=== PATIENT | female | born 1935 | race Caucasian/White ===

== ENCOUNTER 2017-09-28 12:01 | Inpatient (IN) | payer MEDICARE ==
[2017-09-28 12:28] LABS: Hemoglobin 12.3 g/dL (12.0-16.0); Mean Corpuscular Hemoglobin 30.4 pg (27.0-31.0); Mean Platelet Volume 6.1 fL (7.4-10.4); Platelet Count 346 thou/uL (130-400); RBC Distribution Width 12.5 % (11.5-14.5); Red Blood Cell (RBC) Count 4.06 mill/uL (4.20-5.40); White Blood Cell (WBC) Count 20.2 thou/uL (4.8-10.8)
[2017-09-28] MEDS ORDERED: Ondansetron ODT 8 MG TAB ONE (12:49)
[2017-09-28 12:53] LABS: ALT (SGPT) 25 U/L (8-55); AST (SGOT) 22 U/L (5-34); Albumin 3.6 g/dL (3.4-4.8); Alkaline Phosphatase 131 U/L (40-150); Anion Gap 13 mmol/L (10-20); BUN (Urea Nitrogen) 10 mg/dL (9.8-20.1); Bilirubin, Total 0.8 mg/dL (0.2-1.2); CK (CPK) 23 U/L (29-168); Calc. Creatinine Clearance 0 mL/min (70-130); Calcium 8.8 mg/dL (7.8-10.44); Carbon Dioxide 20 mmol/L (23-31); Chloride 102 mmol/L (98-107); Estimated GFR-MDRD 62; Globulin 3.5 g/dL (2.4-3.5); Glucose 121 mg/dL (83-110); Potassium 3.4 mmol/L (3.5-5.1); Protein, Total 7.1 g/dL (6.0-8.3); Sodium 132 mmol/L (136-145)
--- NOTE | 2017-09-28 12:53 | RAD ---
PA CHEST: HISTORY: Cough. COMPARISON: Prior film from 2006. FINDINGS: When compared to the prior exam, there is a new density in the left lung base as well as new patchy d ensity in the right mid lung field. CP angles are blunted bilaterally suggesting small effusions. N o evidence of vascular congestion or edema. Heart size within normal range. IMPRESSION: Evidence of bilateral infiltrates and small bilateral effusions. Follow-up recommended. POS: CARRI
[2017-09-28 13:06] LABS: Band 15 % (5-11); Eosinophils 1 % (0-10); Lymphocytes 14 % (21-51); MDiff Complete? YES; Monocytes 6 % (0-10); Myelocyte 1 % (0-0); Neutrophil 62 % (42-75); Promyelocytes 1 % (0-0); RBC Morphology Normal
[2017-09-28] MEDS ORDERED: cefTRIAXone\\ROCEPHIN 2 GM, Admixture Fee 1 EACH in Sodium Chloride 0.9% 100 ML IVPB SCH (14:30)
[2017-09-28] MEDS ORDERED: Azithromycin 500 MG in Sodium Chloride 0.9% 250 ML 250 ML IVPB SCH (14:30)
[2017-09-28] MEDS ORDERED: Levofloxacin 500 mg/D5W 100 ml Premix Bag ONE (14:58)
[2017-09-28 15:10] LABS: Bilirubin Small (Negative); Blood, Urine Negative (Negative); Clarity CLOUDY (Clear); Glucose, Urine (Dipstick) Negative (Negative); Leukocyte Small (Negative); Nitrite Negative (Negative); Protein, Urine (Dipstick) 100 mg/dL (Neg-Trace); Specific Gravity, Urine 1.028 (1.002-1.036); pH, Urine 5.5 (5.0-9.0)
[2017-09-28 15:12] LABS: Bacteria/HPF None Seen HPF (None Seen)
[2017-09-28 15:15] LABS: Hyaline Casts/LPF 0-3 HYALINE CAST LPF (0-3 Hyaline); Renal Epithelial None Seen HPF (0-3); Transitional Epithelial NONE SEEN HPF (0-3)
[2017-09-28] MEDS ORDERED: Sodium Chloride 0.9% 1,000 ML IV SCH (18:45)
[2017-09-28] MEDS ORDERED: cloNIDine 0.1 MG TAB PO PRN (19:26)
[2017-09-28] MEDS ORDERED: Ondansetron HCl/PF 4 MG/2 ML Vial IVP PRN (19:26)
[2017-09-28] MEDS ORDERED: hydrALAZINE 20 MG/ML VIAL SLOW IVP PRN (19:26)
[2017-09-28] MEDS ORDERED: Ondansetron ODT 4 MG TAB PO PRN (19:26)
[2017-09-28] MEDS: Sodium Chloride 0.9% 1,000 ML IV SCH (20:30)
[2017-09-28] MEDS: cefTRIAXone\\ROCEPHIN 2 GM in Sodium Chloride 0.9% 100 ML IVPB SCH (20:30)
[2017-09-28] MEDS: Famotidine 20 MG TAB PO SCH (20:30)
[2017-09-28] MEDS: Diabetic Tussin 200 MG/10 ML UDCUP PO PRN (20:34)
[2017-09-28 22:00] VITALS: BMI 26.2
[2017-09-28] MEDS: Acetaminophen 500 MG TAB PO PRN (23:17)
[2017-09-29 00:07] LABS: Troponin I Less than 0.010 ng/mL (< 0.028)
--- NOTE | 2017-09-29 00:50 | HP ---
DATE OF ADMISSION: 09/28/2017 PRIMARY CARE PROVIDER: Nicolle dickinson. PRIMARY OBSTETRICS NURSE: Dr. Valero. CHIEF COMPLAINT: Shortness of breath and cough. HISTORY OF PRESENT ILLNESS: This is an 82-year-old female who presents to [facility] Emergency Department complaining of general weakness, persistent cough, congestion, weakness with low-grade fever. The patient states she has had the productive cough of green sputum for approximat gege 1 week, taking [id number] antitussive regimen. The patient also had noted persistent and p rogressive weakness with decreased appetite and p.o. intake. The patient felt that she had a bronchi tis that would spontaneously improve; however, continued to progress with shortness of breath and dec reased exercise tolerance. The patient denies any recent steroid exposure, smoking, secondhand smoke exposure, but does admit to history of chronic bronchitis with minimal use of home inhalers includin g Advair and albuterol. The patient states her influenza and pneumonia vaccinations are up-to-date a nd denies any known sick contacts. In the emergency room, the patient underwent general evaluation i ncluding chest imaging showing evidence of bilateral infiltrates with small effusions with associated white blood cell count elevation to 20,000 with 15% bands. The patient was initiated on Rocephin an d Zithromax for likely community-acquired pneumonia. 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 PAST MEDICAL HISTORY: 1. Chronic bronchitis with minimal use of home inhalers. 2. Hyperlipidemia. PAST SURGICAL HISTORY: Status post cholecystectomy. CURRENT MEDICATIONS: [id number]-ezyrjhl cough suppressant. ALLERGIES: Questionable CEFDINIR and SULFA. FAMILY HISTORY: No inheritable diseases per patient report. SOCIAL HISTORY: The patient lives independently in the [place] area. Formerly, a school based therapist. Cur rently active in the community with volunteer. Occasional alcohol use. No illicit drug use or tobac co. The patient is accompanied by her daughter in the hospital. REVIEW OF SYSTEMS: The following complete review of systems was negative, unless otherwise mentioned in the HPI or below: Constitutional: Weight loss or gain, ability to conduct usual activities. Skin: Rash, itching. Eyes: Double vision, pain. ENT/Mouth: Nose bleeding, neck stiffness, pain, tenderness. Cardiovascular: Palpitations, dyspnea on exertion, orthopnea. Respiratory: Shortness of breath, wheezing, cough, hemoptysis, fever or night sweats. Gastrointestinal: Poor appetite, abdominal pain, heartburn, nausea, vomiting, constipation, or diarr hea. Genitourinary: Urgency, frequency, dysuria, nocturia. Musculoskeletal: Pain, swelling. Neurologic/Psychiatric: Anxiety, depression. Allergy/Immunologic: Skin rash, bleeding tendency. Otherwise negative except as stated per HPI. PHYSICAL EXAMINATION: VITAL SIGNS: On admission, blood pressure 126/70, pulse 109, respiratory rate 18, temperature 99.1 d egrees Fahrenheit, O2 saturation 93% on room air. GENERAL APPEARANCE: This is an 82-year-old female, alert and oriented x3, pleasant, respon sive, in no acute distress. HEENT: Pupils are equal, round, and reactive to light and accommodation. Extraocular muscles are in tact. No scleral icterus. No conjunctival injection. Nares patent. OP is clear. Teeth in good re pair. NECK: Supple. No cervical adenopathy. No thyromegaly, no carotid bruits, no JVD appreciated. Cerv ical spine with full active range of motion. No meningeal signs appreciated. CHEST: Coarse breath sounds in the bases bilaterally. Upper lung field is clear. CARDIOVASCULAR: S1, S2 without noted murmur. ABDOMEN: Rounded, soft, nontender, nondistended. Bowel sounds are positive in all four quadrants. There is no hepatosplenomegaly, no abdominal bruits, no rebound or guarding appreciated. EXTREMITIES: Warm and dry with fair turgor. No clubbing, cyanosis, or asymmetric edema appreciated. Pulses are palpable distally at the dorsalis pedis, posterior tibial, and popliteal arteries bilate rally. Capillary refill is less than 2 seconds. NEUROLOGIC: Cranial nerves II-XII are grossly intact. No focal or lateralizing signs appreciated. PERTINENT LABORATORY AND X-RAY FINDINGS: Sodium 132, potassium 3.4, chloride 102, CO2 of 20, BUN 10, creatinine 0.88, estimated GFR 62, glucose 121. Lactic acid level is 1.3. LFT is within normal farmer its. Albumin 3.6, lipase 14. CBC showed a white blood cell count of 20.2, hemoglobin 12, hematocrit 37, platelet count 346 with 15% bands, 62% neutrophils. Urinalysis showed positive protein, small b ilirubin and leukocyte esterase with 7-10 wbc's per high powered field. Influenza A and B antigen da jensen 09/28/2017 negative. Portable chest x-ray dated 09/28/2017 showed bilateral infiltrates with small bilateral pleural effus ions. ASSESSMENT AND PLAN: 1. Bilateral community-acquired pneumonia. The patient will be admitted to the medical floor. Susp ect gram-positive cocci or Streptococcal species. We will continue Rocephin 2 grams IV q.24 hours wi th additional Zithromax 500 mg IV daily. Blood cultures x2 pending. Add DuoNeb q.4 hours. Continue general pulmonary supportive measures and oxygen on an as needed basis. 2. Hyponatremia. Suspect secondary to poor p.o. intake. We will continue intravenous normal saline at 100 mL per hour and repeat sodium level in the a.m. 3. Hypokalemia, mild. Encourage increased p.o. intake of regular diet and repeat potassium level in the a.m. 4. Leukocytosis with bandemia secondarily to bilateral community-acquired pneumonia. Continue treat ment as outlined in #1. Repeat CBC in the a.m. 5. Question of urinary tract infection. Await final urine culture results. Continue Rocephin as ou tlined in #1 for suspected pneumonia. 6. Prophylaxis. Sequential compression devices while in bed. Pepcid 20 mg p.o. b.i.d. 7. Code status is FULL. Surrogate medical decision maker is the patient's daughter.
[2017-09-29] MEDS: Benzonatate 100 MG CAP PO PRN ×2 (01:21→12:07)
[2017-09-29] MEDS: Sodium Chloride 0.9% 1,000 ML IV SCH ×3 (05:00→20:48)
[2017-09-29 06:05] LABS: Anion Gap 11 mmol/L (10-20); BUN (Urea Nitrogen) 10 mg/dL (9.8-20.1); Calc. Creatinine Clearance 58 mL/min (70-130); Calcium 7.9 mg/dL (7.8-10.44); Carbon Dioxide 22 mmol/L (23-31); Chloride 103 mmol/L (98-107); Estimated GFR-MDRD 69; Glucose 115 mg/dL (83-110); Potassium 3.5 mmol/L (3.5-5.1); Sodium 132 mmol/L (136-145)
[2017-09-29 06:08] LABS: Troponin I Less than 0.010 ng/mL (< 0.028)
[2017-09-29 06:46] LABS: Hemoglobin 10.1 g/dL (12.0-16.0); Mean Corpuscular HGB CONC 33.5 g/dL (32.0-36.0); Mean Corpuscular Hemoglobin 31.1 pg (27.0-31.0); Mean Corpuscular Volume 92.9 fl (81.0-99.0); Mean Platelet Volume 6.4 fL (7.4-10.4); Platelet Count 282 thou/uL (130-400); RBC Distribution Width 12.5 % (11.5-14.5); Red Blood Cell (RBC) Count 3.26 mill/uL (4.20-5.40); White Blood Cell (WBC) Count 15.6 thou/uL (4.8-10.8)
[2017-09-29 06:47] LABS: Band 26 % (5-11); Lymphocytes 7 % (21-51); MDiff Complete? YES; Monocytes 9 % (0-10); Neutrophil 56 % (42-75)
[2017-09-29] MEDS: Diabetic Tussin 200 MG/10 ML UDCUP PO PRN ×2 (07:56→19:04)
[2017-09-29] MEDS: Acetaminophen 500 MG TAB PO PRN (07:56)
[2017-09-29] MEDS: Famotidine 20 MG TAB PO SCH ×2 (07:56→20:47)
[2017-09-29] MEDS ORDERED: cefTRIAXone\\ROCEPHIN 2 GM in Sodium Chloride 0.9% 100 ML IVPB SCH (09:00)
[2017-09-29] MEDS: Azithromycin 500 MG in Sodium Chloride 0.9% 250 ML 250 ML IVPB SCH (09:57)
--- NOTE | 2017-09-29 11:56 | PDOC.PN ---
- Subjective Encounter Start Date: 09/29/17 Encounter Start Time: 11:35 Subjective: f/u for PNA tx with Rocephin and Zithromax. WBC down 20K to 15.6. -: Had a restless night with some coughing. Sleeping late this morning. - Objective Resuscitation Status: Resuscitation Status FULL:Full Resuscitation MAR Reviewed: Yes Vital Signs & Weight: Vital Signs (12 hours) Temp Pulse Resp BP Pulse Ox 09/29/17 10:15 80 16 09/29/17 08:00 97.8 F 88 18 109/63 95 09/29/17 06:16 86 16 98 09/29/17 04:00 98.1 F 73 18 110/65 97 09/29/17 03:08 98.1 F 93 18 110/66 93 L Weight Weight 148 lb I&O: 09/28/17 09/29/17 09/30/17 06:59 06:59 06:59 Intake Total 1500 Balance 1500 Result Diagrams: 09/29/17 05:19 09/29/17 05:19 Additional Labs: Microbiology 09/28/17 12:45 Nasal swab Influenza Types A,B Direct EIA - Final 09/28/17 14:52 Venous blood - Left Arm Blood Culture - Preliminary Specimen has been received and culture in progress. No Growth to date. 09/28/17 12:19 Venous blood - Left Arm Blood Culture - Preliminary Specimen has been received and culture in progress. No Growth to date. Laboratory Tests 09/28/17 09/28/17 09/28/17 12:21 12:21 23:34 WBC 20.2 H Hgb 12.3 Band Neuts % (Manual) 15 H Sodium 132 L Potassium 3.4 L Troponin I Less than 0.010 09/29/17 09/29/17 05:19 05:19 WBC Hgb Band Neuts % (Manual) 26 H Sodium Potassium Troponin I Less than 0.010 EKG Reviewed by me: Yes (Sinus tachycardia in low-100's ) Phys Exam - Physical Examination Constitutional: NAD HEENT: PERRLA, oral pharynx no lesions Neck: no JVD, supple coarse sounds in bases Respiratory: no wheezing Cardiovascular: RRR Gastrointestinal: soft, non-tender, no distention, positive bowel sounds Musculoskeletal: no edema, pulses present Neurological: normal sensation, moves all 4 limbs Psychiatric: A&O x 3 Skin: normal turgor, cap refill <2 seconds Dx/Plan (1) Pneumonia of both lower lobes Code(s): J18.9 - PNEUMONIA, UNSPECIFIED ORGANISM Status: Acute Comment: Suspected gm + cocci or strep spp, continue Rocephin and Zithromax, Duonebs, antitussives (2) Hyponatremia Code(s): E87.1 - HYPO-OSMOLALITY AND HYPONATREMIA Status: Acute Comment: Suspect due to poor po intake, serial monitoring (3) Hypokalemia Code(s): E87.6 - HYPOKALEMIA Status: Acute Comment: Improved, anticipate improvement with po intake of reg diet (4) Leukocytosis Code(s): D72.829 - ELEVATED WHITE BLOOD CELL COUNT, UNSPECIFIED Status: Acute Comment: Bandemia persists but overall WBC down, continue to monitor trend - Plan plan discussed w/ family, continue antibiotics, PT/OT, forensic social worker, respiratory therapy, out of bed/ambulate, DVT proph w/SCDs Stable overall -: Continue Rocephin and Zithromax -: Duonebs q4h -: Decrease IVF's 75ml/h -: AM lab: BMP, CBC * .
--- NOTE | 2017-09-29 14:17 | PQF ---
CLINICAL DOCUMENTATION IMPROVEMENT CLARIFICATION FORM: ICD-10 Updated PLEASE DO AN ADDENDUM TO THE PROGRESS NOTE WITH ANY DOCUMENTATION UPDATES OR ADDITIONS AND CARRY THROUGH TO DC SUMMARY. THANK YOU. DATE: 09/29/17 ATTN: DR. LINDQUIST Please exercise your independent, professional judgment in responding to the clarification form. Clinical indicators are provided on the bottom of this form for your review Please check appropriate box(es): [ x ] Sepsis due to: (Pna, UTI, gangrenous gall bladder, etc.) PNA Due to: [ ] Device (please specify) [ ] Implant [ ] Graft [ ] Infusion [ ] SIRS due to non-infectious process (please specify etiology) [ ] with organ dysfunction [ ] without organ dysfunction [ ] Severe sepsis with acute organ dysfunction of: (Examples: respiratory failure, encephalopathy, acute kidney failure, other) [ ] Septic Shock [ ] Localized infection without sepsis [ ] Other diagnosis [ ] Unable to determine In addition, please specify: Present on Admission (POA): [ x ] Yes [ ] No [ ] Unable to determine For continuity of documentation, please document condition throughout progress notes and discharge summary. Thank You. CLINICAL INDICATORS - SIGNS / SYMPTOMS / LABS ER NOTE: "SEPSIS" WBC 20.2 BANDS 26 PULSE 109 RISKS: PNEUMONIA TREATMENT: IV LEVAQUIN (ER) IV AZITHROMYCIN (ER-PRESENT) IV ROCEPHIN (3/5-PRESENT) IV FLUIDS BLOOD CULTURES [employer] Win[employer] (This form is maintained as a part of the permanent medical record) 2014 [employer]. All Rights Reserved [email or web address] [email or web address] Office: [phone] [facility]
[2017-09-29] MEDS: cefTRIAXone\\ROCEPHIN 2 GM in Sodium Chloride 0.9% 100 ML IVPB SCH (20:47)
[2017-09-30 05:50] LABS: Anion Gap 8 mmol/L (10-20); BUN (Urea Nitrogen) 5 mg/dL (9.8-20.1); Calc. Creatinine Clearance 66 mL/min (70-130); Carbon Dioxide 23 mmol/L (23-31); Chloride 108 mmol/L (98-107); Estimated GFR-MDRD 79; Glucose 115 mg/dL (83-110); Potassium 3.2 mmol/L (3.5-5.1); Sodium 136 mmol/L (136-145)
[2017-09-30 05:54] LABS: Band 2 % (5-11); Eosinophils 1 % (0-10); Hemoglobin 9.6 g/dL (12.0-16.0); Lymphocytes 9 % (21-51); MDiff Complete? YES; Mean Corpuscular HGB CONC 33.7 g/dL (32.0-36.0); Mean Corpuscular Hemoglobin 30.7 pg (27.0-31.0); Mean Corpuscular Volume 91.2 fl (81.0-99.0); Mean Platelet Volume 6.2 fL (7.4-10.4); Monocytes 14 % (0-10); Neutrophil 74 % (42-75); Platelet Count 296 thou/uL (130-400); RBC Distribution Width 12.6 % (11.5-14.5); Red Blood Cell (RBC) Count 3.11 mill/uL (4.20-5.40); White Blood Cell (WBC) Count 11.4 thou/uL (4.8-10.8)
[2017-09-30] MEDS: Azithromycin 500 MG in Sodium Chloride 0.9% 250 ML 250 ML IVPB SCH (08:37)
[2017-09-30] MEDS: Famotidine 20 MG TAB PO SCH ×2 (08:38→20:45)
[2017-09-30] MEDS: Benzonatate 100 MG CAP PO PRN (08:41)
[2017-09-30] MEDS: Sodium Chloride 0.9% 1,000 ML IV SCH (08:50)
--- NOTE | 2017-09-30 12:51 | PDOC.PN ---
- Subjective Encounter Start Date: 09/30/17 Encounter Start Time: 12:30 Subjective: f/u bilat PNA tx with Rocephin and Zithromax overall improved. No -: documented fever or chills. Some vertigo when walking. - Objective Resuscitation Status: Resuscitation Status FULL:Full Resuscitation MAR Reviewed: Yes Vital Signs & Weight: Vital Signs (12 hours) Temp Pulse Resp BP Pulse Ox 09/30/17 10:57 102 H 20 94 L 09/30/17 08:08 97.6 F 85 16 121/68 93 L 09/30/17 08:00 97.6 F 85 16 94 L 09/30/17 07:56 85 16 93 L Weight Weight 148 lb I&O: 09/29/17 09/30/17 10/01/17 06:59 06:59 06:59 Intake Total 1500 1125 Balance 1500 1125 Result Diagrams: 09/30/17 04:47 09/30/17 04:47 Additional Labs: Microbiology 09/28/17 12:45 Nasal swab Influenza Types A,B Direct EIA - Final 09/28/17 14:52 Venous blood - Left Arm Blood Culture - Preliminary Specimen has been received and culture in progress. No Growth to date. 09/28/17 12:19 Venous blood - Left Arm Blood Culture - Preliminary Specimen has been received and culture in progress. No Growth to date. Laboratory Tests 09/28/17 09/28/17 09/28/17 12:21 12:21 23:34 WBC 20.2 H Hgb 12.3 Band Neuts % (Manual) 15 H Sodium 132 L Potassium 3.4 L Troponin I Less than 0.010 09/29/17 09/29/17 05:19 05:19 WBC Hgb Band Neuts % (Manual) 26 H Sodium Potassium Troponin I Less than 0.010 Phys Exam - Physical Examination Constitutional: NAD HEENT: PERRLA, oral pharynx no lesions Neck: no JVD, supple basilar coarse sounds bilat Cardiovascular: RRR Gastrointestinal: soft, non-tender, no distention, positive bowel sounds Musculoskeletal: no edema, pulses present Neurological: normal sensation, moves all 4 limbs Psychiatric: A&O x 3 Skin: normal turgor, cap refill <2 seconds Dx/Plan (1) Sepsis Code(s): A41.9 - SEPSIS, UNSPECIFIED ORGANISM Status: Acute Comment: Due to PNA, overall resolving (2) Pneumonia of both lower lobes Code(s): J18.9 - PNEUMONIA, UNSPECIFIED ORGANISM Status: Acute Comment: Suspected gm + cocci or strep spp, continue Rocephin and Zithromax, Duonebs, antitussives, continue IV Rocephin and Zithromax another 24h then transition po for home (3) Hyponatremia Code(s): E87.1 - HYPO-OSMOLALITY AND HYPONATREMIA Status: Acute Comment: Suspect due to poor po intake, serial monitoring, resolved (4) Hypokalemia Code(s): E87.6 - HYPOKALEMIA Status: Acute Comment: Improved, anticipate improvement with po intake of reg diet, KCL 40meq BID, repeat BMP in am (5) Leukocytosis Code(s): D72.829 - ELEVATED WHITE BLOOD CELL COUNT, UNSPECIFIED Status: Acute Comment: Bandemia persists but overall WBC down, continue to monitor trend, improved - Plan plan discussed w/ family, continue antibiotics, out of bed/ambulate, DVT proph w /SCDs Stable overall -: Continue Rocephin and Zithromax IV another 24h then d/c -: KCL 40meq BID -: Saline lock IVF -: AM lab: BMP, CBC * Likely home in am
[2017-09-30] MEDS ORDERED: Potassium Chloride 20 MEQ TAB PO SCH ×2 (13:00→17:00)
[2017-09-30] MEDS: cefTRIAXone\\ROCEPHIN 2 GM in Sodium Chloride 0.9% 100 ML IVPB SCH (20:45)
[2017-10-01 04:40] LABS: Band 9 % (5-11); Eosinophils 3 % (0-10); Hemoglobin 9.6 g/dL (12.0-16.0); Lymphocytes 13 % (21-51); MDiff Complete? YES; Mean Corpuscular HGB CONC 33.2 g/dL (32.0-36.0); Mean Corpuscular Hemoglobin 31.1 pg (27.0-31.0); Mean Corpuscular Volume 93.6 fl (81.0-99.0); Mean Platelet Volume 6.3 fL (7.4-10.4); Monocytes 10 % (0-10); Myelocyte 1 % (0-0); Neutrophil 64 % (42-75); PLT Morphology Comment Appears Adequate; Platelet Count 359 thou/uL (130-400); RBC Distribution Width 12.7 % (11.5-14.5); Red Blood Cell (RBC) Count 3.08 mill/uL (4.20-5.40); White Blood Cell (WBC) Count 9.3 thou/uL (4.8-10.8)
[2017-10-01 04:42] LABS: Anion Gap 10 mmol/L (10-20); BUN (Urea Nitrogen) 5 mg/dL (9.8-20.1); Calc. Creatinine Clearance 69 mL/min (70-130); Calcium 8.2 mg/dL (7.8-10.44); Carbon Dioxide 22 mmol/L (23-31); Chloride 109 mmol/L (98-107); Estimated GFR-MDRD 83; Glucose 110 mg/dL (83-110); Potassium 3.7 mmol/L (3.5-5.1); Sodium 137 mmol/L (136-145)
[2017-10-01] MEDS: Famotidine 20 MG TAB PO SCH ×2 (08:12→22:45)
[2017-10-01] MEDS: Azithromycin 500 MG in Sodium Chloride 0.9% 250 ML 250 ML IVPB SCH (08:13)
[2017-10-01] MEDS: Fluorometholone 0.1% Ophth Soln 5 ml Bottle EA EYE SCH (08:14)
--- NOTE | 2017-10-01 11:04 | PDOC.PN ---
- Subjective Encounter Start Date: 10/01/17 Encounter Start Time: 10:15 Subjective: breathing better, no sob - Objective Resuscitation Status: Resuscitation Status FULL:Full Resuscitation MAR Reviewed: Yes Vital Signs & Weight: Vital Signs (12 hours) Temp Pulse Resp BP Pulse Ox 10/01/17 08:00 98.2 F 106 H 16 154/74 H 94 L 10/01/17 07:15 100 16 Weight Weight 148 lb I&O: 09/30/17 10/01/17 10/02/17 06:59 06:59 06:59 Intake Total 1125 400 180 Balance 1125 400 180 Result Diagrams: 10/01/17 03:43 10/01/17 03:43 Phys Exam - Physical Examination HEENT: PERRLA, moist MMs Neck: no JVD, supple Respiratory: no wheezing, no rales Cardiovascular: RRR, no significant murmur Gastrointestinal: soft, non-tender, positive bowel sounds Musculoskeletal: pulses present Neurological: non-focal, moves all 4 limbs Dx/Plan (1) Pneumonia of both lower lobes Code(s): J18.9 - PNEUMONIA, UNSPECIFIED ORGANISM Status: Acute Comment: Suspected gm + cocci or strep spp, continue Rocephin and Zithromax (2) Sepsis Code(s): A41.9 - SEPSIS, UNSPECIFIED ORGANISM Status: Acute Qualifiers: Sepsis type: sepsis due to unspecified organism Qualified Code(s): A41.9 - Sepsis, unspecified organism Comment: Due to PNA, overall resolving (3) Chronic anemia Code(s): D64.9 - ANEMIA, UNSPECIFIED Status: Chronic - Plan on ceftriaxone and zithromax -: nebs, mobilize as tolerated -: dc plan in am -: encourage po intake * . Review of Systems - Medications/Allergies Allergies/Adverse Reactions: Allergies Allergy/AdvReac Type Severity Reaction Status Date / Time cefdinir Allergy Verified 09/28/17 21:50 Sulfa (Sulfonamide Allergy Verified 09/28/17 21:51 Antibiotics) Medications: Current Medications Acetaminophen (Tylenol) 1,000 mg PO Q6H PRN PRN Reason: Headache/Fever or Mild Pain Last Admin: 09/29/17 07:56 Dose: 1,000 mg Albuterol/Ipratropium (Duoneb) 3 ml NEB [id number] [facility] Last Admin: 10/01/17 07:15 Dose: 3 ml Benzonatate (Tessalon) 200 mg PO Q6H PRN PRN Reason: Cough Last Admin: 09/30/17 08:41 Dose: 200 mg Clonidine (Catapres) 0.1 mg PO Q4H PRN PRN Reason: Systolic BP > 180 Famotidine (Pepcid) 20 mg PO BID [facility] Last Admin: 10/01/17 08:12 Dose: 20 mg Fluorometholone (Flarex 0.1% Ophth Soln) 1 drop EA EYE DAILY [facility] Last Admin: 10/01/17 08:14 Dose: Not Given Guaifenesin (Robitussin Sf) 200 mg PO Q4H PRN PRN Reason: Cough Last Admin: 09/29/17 19:04 Dose: 200 mg Hydralazine HCl (Apresoline) 10 mg SLOW IVP Q4H PRN PRN Reason: Systolic BP > 180 Azithromycin 500 mg/ Sodium (Chloride) 250 mls @ 250 mls/hr IVPB Q24HR [facility] Last Admin: 10/01/17 08:13 Dose: 250 mls Ceftriaxone Sodium 2 gm/ (Sodium Chloride) 100 mls @ 200 mls/hr IVPB 2100 [facility] Last Admin: 09/30/17 20:45 Dose: 100 mls Ondansetron HCl (Zofran Odt) 4 mg PO Q6H PRN PRN Reason: Nausea/Vomiting Ondansetron HCl (Zofran) 4 mg IVP Q6H PRN PRN Reason: Nausea/Vomiting Potassium Chloride (Klor-Con) 20 meq PO BID-[facility] Last Admin: 10/01/17 08:12 Dose: 20 meq
--- NOTE | 2017-10-01 17:32 | EKG ---
Test Reason : Blood Pressure : / mmHG Vent. Rate : 106 BPM Atrial Rate : 106 BPM P-R Int : 130 ms QRS Dur : 082 ms QT Int : 334 ms P-R-T Axes : 068 -43 053 degrees QTc Int : 443 ms Sinus tachycardia Left axis deviation Abnormal ECG When compared with ECG of 23-NOV-2003 12:11, QRS axis Shifted left Confirmed by DR. Izzy CALERO ([id number]) on 10/01/2017 5:32:11 PM Referred By: Confirmed By:DR. Izzy CALERO
[2017-10-01] MEDS: cefTRIAXone\\ROCEPHIN 2 GM in Sodium Chloride 0.9% 100 ML IVPB SCH (22:44)
[2017-10-02] MEDS: Azithromycin 500 MG in Sodium Chloride 0.9% 250 ML 250 ML IVPB SCH (09:21)
[2017-10-02] MEDS: Famotidine 20 MG TAB PO SCH ×2 (09:21→20:22)
[2017-10-02 09:22] LABS: #Basophils 0.1 thou/uL (0.0-0.2); #Eosinphils 0.5 thou/uL (0.0-0.7); #Lymphocytes 0.8 thou/uL (1.20-3.40); #Monocytes 1.2 thou/uL (0.11-0.59); #Neutrophils 5.8 thou/uL (1.40-6.50); %Basophils 0.7 % (0.0-1.0); %Eosinophils 5.7 % (0.0-10.0); %Lymphocytes 9.9 % (21.0-51.0); %Monocytes 13.8 % (0.0-10.0); %Neutrophils 69.8 % (42.0-75.0); Mean Corpuscular HGB CONC 33.5 g/dL (32.0-36.0); Mean Corpuscular Hemoglobin 30.8 pg (27.0-31.0); Mean Corpuscular Volume 91.9 fl (81.0-99.0); Mean Platelet Volume 5.5 fL (7.4-10.4); Platelet Count 462 thou/uL (130-400); RBC Distribution Width 12.9 % (11.5-14.5); Red Blood Cell (RBC) Count 3.59 mill/uL (4.20-5.40); White Blood Cell (WBC) Count 8.3 thou/uL (4.8-10.8)
[2017-10-02] MEDS: Fluorometholone 0.1% Ophth Soln 5 ml Bottle EA EYE SCH (09:33)
[2017-10-02 09:49] LABS: Anion Gap 14 mmol/L (10-20); BUN (Urea Nitrogen) 4 mg/dL (9.8-20.1); Calc. Creatinine Clearance 64 mL/min (70-130); Calcium 8.8 mg/dL (7.8-10.44); Carbon Dioxide 23 mmol/L (23-31); Chloride 106 mmol/L (98-107); Estimated GFR-MDRD 77; Glucose 98 mg/dL (83-110); Potassium 3.7 mmol/L (3.5-5.1); Sodium 139 mmol/L (136-145)
--- NOTE | 2017-10-02 09:53 | RAD ---
CHEST 1 VIEW: HISTORY Followup prior exam. COMPARISON: 09/28/17. FINDINGS: Persistent and essentially stable lung parenchymal opacities and bilateral pleural effusions. Stable configuration of the cardiac silhouette. No pneumothorax. IMPRESSION: No significant interval change. POS: SERA
--- NOTE | 2017-10-02 13:56 | PDOC.PN ---
- Subjective Encounter Start Date: 10/02/17 Encounter Start Time: 11:45 Subjective: feels better, is amb in hallway - Objective Resuscitation Status: Resuscitation Status FULL:Full Resuscitation MAR Reviewed: Yes Vital Signs & Weight: Vital Signs (12 hours) Temp Pulse Resp BP Pulse Ox 10/02/17 09:35 91 16 95 10/02/17 08:00 98.3 F 91 16 97 10/02/17 07:44 98.2 F 95 18 164/89 H 92 L 10/02/17 06:06 119 H 16 94 L Weight Weight 148 lb I&O: 10/01/17 10/02/17 10/03/17 06:59 06:59 06:59 Intake Total 400 1240 480 Balance 400 1240 480 Result Diagrams: 10/02/17 08:50 10/02/17 08:50 Phys Exam - Physical Examination HEENT: PERRLA, moist MMs Neck: no JVD, supple Respiratory: no wheezing, no rales Cardiovascular: RRR, no significant murmur Gastrointestinal: soft, non-tender, positive bowel sounds Musculoskeletal: no edema, pulses present Neurological: non-focal, moves all 4 limbs Psychiatric: normal affect, A&O x 3 Dx/Plan (1) Pneumonia of both lower lobes Code(s): J18.9 - PNEUMONIA, UNSPECIFIED ORGANISM Status: Acute Comment: Suspected gm + cocci or strep spp, continue Rocephin and Zithromax (2) Sepsis Code(s): A41.9 - SEPSIS, UNSPECIFIED ORGANISM Status: Acute Qualifiers: Sepsis type: sepsis due to unspecified organism Qualified Code(s): A41.9 - Sepsis, unspecified organism Comment: Due to PNA, overall resolving (3) Chronic anemia Code(s): D64.9 - ANEMIA, UNSPECIFIED Status: Chronic - Plan will switch to oral levaquin in am -: hemostable -: repeat cxray shows clearing of pna -: is ambulating in hallway -: nebs prn * . Review of Systems - Medications/Allergies Allergies/Adverse Reactions: Allergies Allergy/AdvReac Type Severity Reaction Status Date / Time cefdinir Allergy Verified 09/28/17 21:50 Sulfa (Sulfonamide Allergy Verified 09/28/17 21:51 Antibiotics) Medications: Current Medications Acetaminophen (Tylenol) 1,000 mg PO Q6H PRN PRN Reason: Headache/Fever or Mild Pain Last Admin: 09/29/17 07:56 Dose: 1,000 mg Albuterol/Ipratropium (Duoneb) 3 ml NEB [id number] Last Admin: 10/02/17 09:35 Dose: 3 ml Benzonatate (Tessalon) 200 mg PO Q6H PRN PRN Reason: Cough Last Admin: 09/30/17 08:41 Dose: 200 mg Clonidine (Catapres) 0.1 mg PO Q4H PRN PRN Reason: Systolic BP > 180 Famotidine (Pepcid) 20 mg PO BID [facility] Last Admin: 10/02/17 09:21 Dose: 20 mg Fluorometholone (Flarex 0.1% Oph Soln) 1 drop EA EYE DAILY [facility] Last Admin: 10/02/17 09:33 Dose: Not Given Guaifenesin (Robitussin Sf) 200 mg PO Q4H PRN PRN Reason: Cough Last Admin: 09/29/17 19:04 Dose: 200 mg Hydralazine HCl (Apresoline) 10 mg SLOW IVP Q4H PRN PRN Reason: Systolic BP > 180 Azithromycin 500 mg/ Sodium (Chloride) 250 mls @ 250 mls/hr IVPB Q24HR [facility] Last Admin: 10/02/17 09:21 Dose: 250 mls Ceftriaxone Sodium 2 gm/ (Sodium Chloride) 100 mls @ 200 mls/hr IVPB 2100 [facility] Last Admin: 10/01/17 22:44 Dose: 100 mls Ondansetron HCl (Zofran Odt) 4 mg PO Q6H PRN PRN Reason: Nausea/Vomiting Ondansetron HCl (Zofran) 4 mg IVP Q6H PRN PRN Reason: Nausea/Vomiting Potassium Chloride (Klor-Con) 20 meq PO BID-[facility] Last Admin: 10/02/17 09:21 Dose: 20 meq
[2017-10-03] MEDS: Acetaminophen 500 MG TAB PO PRN (05:06)
[2017-10-03] MEDS: Famotidine 20 MG TAB PO SCH (07:36)
[2017-10-03] MEDS: Fluorometholone 0.1% Ophth Soln 5 ml Bottle EA EYE SCH (07:37)
[2017-10-03 08:10] VITALS: BP 149/78; TEMP 97.9
--- NOTE | 2017-10-03 11:25 | PDOC.PN ---
- Subjective Encounter Start Date: 10/03/17 Encounter Start Time: 09:00 Subjective: feels better, is amb and eating better - Objective Resuscitation Status: Resuscitation Status FULL:Full Resuscitation MAR Reviewed: Yes Vital Signs & Weight: Vital Signs (12 hours) Temp Pulse Resp BP Pulse Ox 10/03/17 09:27 107 H 16 93 L 10/03/17 08:09 97.9 F 107 H 18 149/78 H 93 L 10/03/17 08:00 97.9 F 107 H 18 97 10/03/17 05:48 88 16 94 L 10/03/17 04:22 98.5 F 87 16 154/83 H 94 L Weight Weight 148 lb I&O: 10/02/17 10/03/17 10/04/17 06:59 06:59 07:59 Intake Total 1240 1795 240 Balance 1240 1795 240 Result Diagrams: 10/02/17 08:50 10/02/17 08:50 Phys Exam - Physical Examination HEENT: PERRLA, moist MMs Neck: no JVD, supple Respiratory: no wheezing, no rales Cardiovascular: RRR, no significant murmur Gastrointestinal: soft, non-tender, positive bowel sounds Musculoskeletal: no edema, pulses present Neurological: non-focal, moves all 4 limbs Psychiatric: A&O x 3 Dx/Plan (1) Pneumonia of both lower lobes Code(s): J18.9 - PNEUMONIA, UNSPECIFIED ORGANISM Status: Acute Comment: Suspected gm + cocci or strep spp (2) Sepsis Code(s): A41.9 - SEPSIS, UNSPECIFIED ORGANISM Status: Resolved Qualifiers: Sepsis type: sepsis due to unspecified organism Qualified Code(s): A41.9 - Sepsis, unspecified organism Comment: Due to PNA, overall resolving (3) Chronic anemia Code(s): D64.9 - ANEMIA, UNSPECIFIED Status: Chronic - Plan hemostable -: dc pt home -: d/w patient and daughter * .
--- NOTE | 2017-10-03 18:20 | DIS ---
DATE OF ADMISSION: 09/28/2017 DATE OF DISCHARGE: 10/03/2017 DISCHARGE DISPOSITION: Home. PRIMARY DISCHARGE DIAGNOSES: Pneumonia, sepsis, chronic anemia. PROCEDURES DONE DURING HOSPITALIZATION: The patient has had chest x-ray done on the day of admission , which showed early bilateral infiltrates. Blood cultures x2, no growth. Influenza A and B antigen s were negative. Had a white count of 20, with 62% neutrophils and 15% bands on admission. Discharg e white count of 8, H&H was 11 and 33 on the day of discharge. DISCHARGE MEDICATIONS: Albuterol inhaler q.6 hourly p.r.n., Pepcid 20 mg twice daily, Levaquin 500 m g p.o. daily for another 4 days. ALLERGIES: Allergic to CEFDINIR and SULFA. DISCHARGE PLAN: Patient needs to find a primary care physician and follow up within a week. BRIEF COURSE DURING HOSPITALIZATION: Patient initially got admitted with complaints of shortness of breath and cough. Her chest x-ray was consistent with early pneumonia. Patient was septic as well w ith a white count of 20 and 15% bands. She was placed on broad spectrum antibiotics for likely commu nity-acquired pneumonia. She was also on nebulizers. The patient has responded well to above measur es. A repeat x-ray done on the is showing clearing up of pneumonia. Her white count is almost n ormal this morning. She is ambulating and her eating is also getting better at present. She is hemo dynamically stable and will be shortly discharged home. She is strongly counseled to find a primary care physician and follow up within 1 week. Please see a [id number] documentation on [facility] for the day of discharge.
== END 2017-10-03 10:55 | disposition home or self-care (01) | DRG 871 ==
LOC: ERS 12:01 → T4-B 14:44
PROVIDERS: ADMIT Family Medicine; ATTEND Family Medicine
DX: A41.9 Sepsis, unspecified organism (principal); J18.9 Pneumonia, unspecified organism; E87.1 Hypo-osmolality and hyponatremia; E87.6 Hypokalemia; E78.5 Hyperlipidemia, unspecified; D64.9 Anemia, unspecified; J42 Unspecified chronic bronchitis; Z88.2 Allergy status to sulfonamides; Z88.1 Allergy status to other antibiotic agents
CPT/HCPCS: 36415; 71045; 80048; 80053; 81003; 81015; 82550; 83605; 83690; 83880; 84484; 85007; 85025; 85027; 87040; 87804; 93005; 93010; 94640; 96365; 96366; 96367; G8978-GP-CI; G8979-GP-CI; G8980-GP-CI; J0456; J0696; J1956; J7050; J7620

== ENCOUNTER 2017-10-28 10:31 | Outpatient (CLI) | payer MEDICARE | END 2017-10-28 10:32 | disposition home or self-care (01) | LOC: BICRAD 10:31 | PROVIDERS: ATTEND Internal Medicine Sleep Medicine | DX: J47.9 Bronchiectasis, uncomplicated (principal); J90 Pleural effusion, not elsewhere classified | CPT/HCPCS: 71046 ==

== ENCOUNTER 2018-08-17 16:25 | Outpatient (CLI) | payer MEDICARE ==
--- NOTE | 2018-08-17 17:23 | RAD ---
PA AND LATERAL VIEWS OF THE CHEST: 08/17/18 HISTORY: COPD. FINDINGS: Comparison is made with 10/02/17 and 01/18/14. The heart size is normal. Blunting of the right lateral costophrenic angle is again seen. Chronic kashif nges are seen in the lung mckeon. No focal areas of consolidation, pneumothoraces or large pleural ef fusions are seen. There are mild degenerative changes in the spine. IMPRESSION: No acute process. POS: [facility]
== END 2018-08-17 16:26 | disposition home or self-care (01) ==
LOC: BICRAD 16:25
PROVIDERS: ATTEND Family Medicine
DX: J44.9 Chronic obstructive pulmonary disease, unspecified (principal)
CPT/HCPCS: 71046

== ENCOUNTER 2018-09-06 10:54 | Emergency (ER) | payer MEDICARE ==
--- NOTE | 2018-09-06 12:16 | RAD ---
CHEST TWO VIEWS: HISTORY: Cough. COMPARISON: Radiograph from 08/17/2018. FINDINGS: Some chronic scarring in the right lateral lung base. The right lower lobe opacity is unchanged and contains scar. No pneumothorax. IMPRESSION: Chronic findings. No acute intrathoracic abnormality. POS: [facility]
[2018-09-06 12:17] LABS: #Basophils 0.1 thou/uL (0.0-0.2); #Eosinphils 1.1 thou/uL (0.0-0.7); #Monocytes 1.3 thou/uL (0.11-0.59); #Neutrophils 5.7 thou/uL (1.40-6.50); %Basophils 0.8 % (0.0-1.0); %Eosinophils 12.3 % (0.0-10.0); %Lymphocytes 10.4 % (21.0-51.0); %Monocytes 14.1 % (0.0-10.0); %Neutrophils 62.4 % (42.0-75.0); Hemoglobin 12.6 g/dL (12.0-16.0); Mean Corpuscular Hemoglobin 29.7 pg (27.0-31.0); Mean Corpuscular Volume 90.2 fL (78.0-98.0); Mean Platelet Volume 6.5 fL (7.4-10.4); Platelet Count 372 thou/uL (130-400); RBC Distribution Width 11.6 % (11.5-14.5); Red Blood Cell (RBC) Count 4.24 mill/uL (4.20-5.40); White Blood Cell (WBC) Count 9.1 thou/uL (4.8-10.8)
[2018-09-06 12:56] LABS: ALT (SGPT) Less than 7 U/L (8-55); AST (SGOT) 14 U/L (5-34); Albumin 3.9 g/dL (3.4-4.8); Alkaline Phosphatase 85 U/L (40-150); Anion Gap 14 mmol/L (10-20); BUN (Urea Nitrogen) 12 mg/dL (9.8-20.1); Bilirubin, Total 0.4 mg/dL (0.2-1.2); Calc. Creatinine Clearance 0 mL/min (70-130); Calcium 8.9 mg/dL (7.8-10.44); Carbon Dioxide 21 mmol/L (23-31); Chloride 105 mmol/L (98-107); Estimated GFR-MDRD 60; Globulin 3.3 g/dL (2.4-3.5); Glucose 94 mg/dL (83-110); Potassium 3.8 mmol/L (3.5-5.1); Protein, Total 7.2 g/dL (6.0-8.3); Sodium 136 mmol/L (136-145)
[2018-09-06] MEDS ORDERED: predniSONE 20 MG TAB ONE (16:08)
[2018-09-06] MEDS ORDERED: Acetaminophen 500 MG TAB ONE (16:08)
[2018-09-06] MEDS ORDERED: Doxycycline 100 MG CAP PO SCH (16:15)
== END 2018-09-06 17:35 | disposition home or self-care (01) ==
LOC: ERS 10:54
DX: J10.1 Influenza due to other identified influenza virus with other respiratory manifestations (principal)
CPT/HCPCS: 36415; 71046; 80053; 85025; 87804; 93005; 94640

== ENCOUNTER 2019-02-10 09:14 | Outpatient (CLI) | payer MEDICARE ==
--- NOTE | 2019-02-10 09:34 | RAD ---
XR Chest Pa Lat STANDARD HISTORY: Community-acquired pneumonia, cough, chest pain, fever COMPARISON: 09/06/2018 FINDINGS: The heart size normal. The lungs are expanded with the stable chronic changes. Mild infiltr ate is noted in the left lower lung. No pneumothoraces or pleural effusions are seen. IMPRESSION: Probable left basilar pneumonia.
== END 2019-02-10 09:15 | disposition home or self-care (01) ==
LOC: BICRAD 09:14
PROVIDERS: ATTEND Family Medicine
DX: J18.9 Pneumonia, unspecified organism (principal)
CPT/HCPCS: 71046

== ENCOUNTER 2020-02-28 12:42 | Observation (INO) | payer MEDICARE ==
[~2020-02-28 12:42] MED LIST: Iopamidol-370 76% 500 ML 1 ML ONE
[2020-02-28 14:01] LABS: #Basophils 0.1 thou/uL (0.0-0.2); #Eosinphils 0.4 thou/uL (0.0-0.7); #Lymphocytes 1.2 thou/uL (1.20-3.40); #Monocytes 1.1 thou/uL (0.11-0.59); #Neutrophils 7.8 thou/uL (1.40-6.50); %Basophils 0.7 % (0.0-1.0); %Eosinophils 3.6 % (0.0-10.0); %Lymphocytes 11.5 % (21.0-51.0); %Monocytes 10.1 % (0.0-10.0); %Neutrophils 74.2 % (42.0-75.0); Hemoglobin 12.5 g/dL (12.0-16.0); Mean Corpuscular HGB CONC 32.9 g/dL (32.0-36.0); Mean Corpuscular Volume 91.3 fL (78.0-98.0); Mean Platelet Volume 6.6 fL (7.4-10.4); Platelet Count 368 thou/uL (130-400); RBC Distribution Width 12.4 % (11.5-14.5); Red Blood Cell (RBC) Count 4.16 mill/uL (4.20-5.40); White Blood Cell (WBC) Count 10.5 thou/uL (4.8-10.8)
[2020-02-28 14:06] LABS: ALT (SGPT) 9 U/L (8-55); AST (SGOT) 13 U/L (5-34); Albumin 3.5 g/dL (3.4-4.8); Alkaline Phosphatase 78 U/L (40-110); Anion Gap 11 mmol/L (10-20); BUN (Urea Nitrogen) 23 mg/dL (9.8-20.1); Bilirubin, Total 0.5 mg/dL (0.2-1.2); Calc. Creatinine Clearance 0 mL/min (70-130); Calcium 8.1 mg/dL (7.8-10.44); Carbon Dioxide 24 mmol/L (23-31); Chloride 105 mmol/L (98-107); Estimated GFR-MDRD 46; Globulin 3.1 g/dL (2.4-3.5); Glucose 93 mg/dL (83-110); Lipase 30 U/L (8-78); Potassium 3.7 mmol/L (3.5-5.1); Protein, Total 6.6 g/dL (6.0-8.3); Sodium 136 mmol/L (136-145)
[2020-02-28] MEDS ORDERED: Ondansetron PF 4 MG/2 ML Vial ONE (14:34)
[2020-02-28] MEDS ORDERED: Dicyclomine 20 MG TAB ONE (14:34)
--- NOTE | 2020-02-28 15:58 | CT ---
CT abdomen and pelvis with IV contrast. Oral contrast was not administered. INDICATIONS: Weakness. Diarrhea. Abdominal pain. COMPARISON: None FINDINGS: There are hazy groundglass opacities seen in the periphery of both lung bases. These are nonspecific but could represent viral pneumonia. Recommend clinical correlation. Liver, spleen, and pancreas appear unremarkable. Stomach and duodenum appear unremarkable. Adrenal glands appear normal. Kidneys appear unremarkable. Collecting structures and urinary bladder appear unremarkable. Small bowel loops are normal caliber and exhibit normal fold pattern. Appendix is identified and appears unremarkable. Colon is mildly distended with air-fluid levels. There is mural thickening and luminal narrowing at the rectosigmoid junction. There are surrounding i nflammation. Focal proctitis or colitis should be excluded. Recommend direct evaluation. Aorta is calcified. No aneurysm. No evidence of retroperitoneal or mesenteric adenopathy. Uterus and adnexa unremarkable. Urinary bladder is mildly distended. Subcutaneous tissues, abdominal wall, and muscular structures appear unremarkable. Osseous structures appear unremarkable. IMPRESSION: 1. Hazy groundglass opacities/infiltrates in the periphery of both lung bases. Recommend clinical cor relation regarding pneumonia. 2. Colon shows mild distention with air-fluid levels. Mural thickening and surrounding inflammation a t the rectosigmoid junction. Recommend direct evaluation. 3. Urinary bladder distention.
[2020-02-28 16:33] LABS: Bilirubin Negative (Negative); Blood, Urine Negative (Negative); Clarity Clear (Clear); Glucose, Urine (Dipstick) Normal (Negative); Ketone, Urine Negative (Negative); Leukocyte Negative Leu/uL (Negative); Nitrite Negative (Negative); Protein, Urine (Dipstick) 10 mg/dL (Neg-Trace); Specific Gravity, Urine 1.025 (1.002-1.036); Urobilinogen Normal mg/dL (Less than 2); pH, Urine 5.5 (5.0-9.0)
--- NOTE | 2020-02-28 16:38 | RAD ---
Portable chest: HISTORY: Dyspnea COMPARISON: 09/21/2019 FINDINGS:Heart and mediastinum unremarkable. No evidence of vascular congestion. Interstitial marking s in the lung bases appear stable. IMPRESSION: No acute finding
[2020-02-28] MEDS ORDERED: metroNIDAZOLE 500 MG/100 ML BAG ONE (17:08)
[2020-02-28 20:28] LABS: SARS-CoV-2 NAA Rapid Test Not Detected (NotDetected)
[2020-02-28] MEDS ORDERED: Ondansetron PF 4 MG/2 ML Vial IVP PRN (21:34)
[2020-02-28 22:12] VITALS: BMI 22.6
[2020-02-28] MEDS: Sodium Chloride 0.9% 1,000 ML IV SCH (23:21)
[2020-02-29] MEDS: metroNIDAZOLE 500 MG in Premix Bag 1 BAG IVPB SCH ×3 (00:52→17:45)
--- NOTE | 2020-02-29 01:14 | HP ---
REASON FOR ADMISSION: Diarrhea and fatigue. HISTORY OF PRESENT ILLNESS: This is an 84-year-old female patient, who has been constipated and five days ago started taking laxatives, two days ago she developed diarrhea large amount on a daily basis. Today, she had less amount of diarrhea, but felt very weak and tired and for that reason, she came to the hospital. The patient denies fevers. Denies chills. She does have some abdominal discomfort, but denies any abdominal pain. I did review her records and her last admission to our hospital was in 2018. At that time, she was diagnosed with pneumonia and sepsis. Since then, she has been doing fairly well. Did not require to be further hospitalized. PAST MEDICAL HISTORY: 1. Chronic bronchitis. 2. High cholesterol. PAST SURGICAL HISTORY: Post cholecystectomy. ALLERGIES: TO SULFA, CEFDINIR, AND TAPE. FAMILY HISTORY: Negative for heart disease and diabetes. REVIEW OF SYSTEMS: All systems reviewed except the above-mentioned diarrhea found to be negative. PHYSICAL EXAMINATION: GENERAL: She is awake, alert, and oriented, does not appear in distress. VITAL SIGNS: Her blood pressure is 127/59, heart rate of 87, temperature is 98.3, and saturating 97% on room air. HEENT: Head is nontraumatic and normocephalic. Pupils equal and reactive. Extraocular movements are intact. Nonicteric sclerae. Well injected conjunctivae. Oral mucosa normal. Nasal mucosa normal. NECK: Supple. No adenopathy. No murmur. Thyroid is not palpable. Trachea is midline. No supraclavicular lymphadenopathy. HEART: S1 and S2 regular. No murmur. No gallops. No friction rubs. No displacement of PMI. LUNGS: Clear to auscultation bilaterally. No wheezes. No rhonchi or crackles. ABDOMEN: Bowel sounds are positive. Slight tenderness on palpation of the abdomen, but overall the abdomen is soft. EXTREMITIES: No lower extremity edema. No cyanosis. NEUROLOGIC: Cranial nerves 2 through 12 within normal limits. Normal motor function. Normal sensory function. Normal reflexes. LABORATORY DATA: Blood work shows a WBC of 10.5, hemoglobin of 12.5, and platelets of 368. A sodium 136, potassium 3.7, bicarb of 24, and creatinine 1.13 and last creatinine was 0.73 in 2018. Urinalysis negative for an infection. COVID-19 test not detected. Chest x-ray shows no acute finding. CT of the abdomen and pelvis shows; 1. Hazy ground-glass opacity/infiltrate in the periphery of both lung bases, recommend clinical correlation regarding pneumonia. 2. Colon shows mild distention with air-fluid levels, mural thickening and surrounding inflammation at the rectosigmoid junction. ASSESSMENT AND PLAN: This is an 84-year-old female patient presenting with weakness, mild dehydration in the setting of recent constipation followed by diarrhea after taking laxatives. CAT scan suggestive of colitis, this could be infectious colitis. The patient will be admitted to med/surge, will be on IV fluid hydration, also IV antibiotics. She already did receive Cipro and Flagyl in the emergency room, so we will continue with these antibiotics. Recheck her labs in the morning. On the other hand, she is on inhalers. We will resume them. I am awaiting her med rec to be done. For deep venous thrombosis prophylaxis, she will be on sequential compression devices and heparin subcutaneously. I did discuss with her code status and she wishes to be full code. Job ID: [id number]
[2020-02-29 06:28] LABS: #Eosinphils 0.4 thou/uL (0.0-0.7); #Monocytes 0.9 thou/uL (0.11-0.59); #Neutrophils 5.6 thou/uL (1.40-6.50); %Basophils 0.6 % (0.0-1.0); %Eosinophils 4.8 % (0.0-10.0); %Lymphocytes 12.3 % (21.0-51.0); %Monocytes 11.2 % (0.0-10.0); Mean Corpuscular HGB CONC 32.2 g/dL (32.0-36.0); Mean Corpuscular Volume 89.9 fL (78.0-98.0); Mean Platelet Volume 6.5 fL (7.4-10.4); Platelet Count 308 thou/uL (130-400); RBC Distribution Width 12.3 % (11.5-14.5); Red Blood Cell (RBC) Count 3.44 mill/uL (4.20-5.40); White Blood Cell (WBC) Count 7.9 thou/uL (4.8-10.8)
[2020-02-29 06:46] LABS: Anion Gap 8 mmol/L (10-20); BUN (Urea Nitrogen) 15 mg/dL (9.8-20.1); Calc. Creatinine Clearance 46 mL/min (70-130); Calcium 7.4 mg/dL (7.8-10.44); Carbon Dioxide 23 mmol/L (23-31); Chloride 107 mmol/L (98-107); Estimated GFR-MDRD 61; Glucose 116 mg/dL (83-110); Potassium 3.6 mmol/L (3.5-5.1); Sodium 134 mmol/L (136-145)
[2020-02-29] MEDS ORDERED: Non-Formulary Item 1 EACH (Umeclidinium Bromide [Incruse Ellipta] 1 PUFF) INH SCH (07:15)
--- NOTE | 2020-02-29 07:41 | PDOC.HOSPP ---
- Subjective Encounter Date: 02/29/20 Encounter Time: 07:40 Subjective: weak, diarrhea improved. coush, chest pain on breathing - Objective Vital Signs & Weight: Vital Signs (12 hours) Temp Pulse Resp BP Pulse Ox 02/29/20 04:00 98.5 F 85 16 137/65 97 02/28/20 23:17 97.8 F 104 H 16 130/58 L 97 02/28/20 21:40 98.2 F 101 H 20 135/66 94 L Weight Weight 131 lb 8 oz I&O: 02/28/20 02/29/20 03/01/20 06:59 06:59 06:59 Intake Total 1545 Balance 1545 Result Diagrams: 02/29/20 06:18 02/29/20 06:18 Hospitalist ROS - Medication Medications: Active Medications Generic Name Dose Route Start Last Admin Trade Name Freq PRN Reason Stop Dose Admin Metronidazole 500 mg/ Device 100 mls @ 100 mls/hr 02/29/20 01:00 02/29/20 00: 52 IVPB 100 mls 0100,0900,1700 LIONEL Administration Sodium Chloride 1,000 mls @ 75 mls/hr 02/28/20 21:45 02/28/20 23:21 Normal Saline 0.9% IV 1,000 mls .[id number] LIONEL Administration - Exam General Appearance: awake alert Neck: no JVD Heart: RRR, no murmur Respiratory - other findings: rales , coarse in all mckeon Gastrointestinal: soft, non-tender, non-distended, normal bowel sounds Extremities: no edema Hosp A/P (1) COPD exacerbation Code(s): J44.1 - CHRONIC OBSTRUCTIVE PULMONARY DISEASE W (ACUTE) EXACERBATION Status: Acute (2) Pleuritic chest pain Code(s): R07.81 - PLEURODYNIA Status: Acute (3) Colitis Code(s): K52.9 - NONINFECTIVE GASTROENTERITIS AND COLITIS, UNSPECIFIED Status : Acute (4) Acute renal failure Status: Acute Qualifiers: Acute renal failure type: unspecified Qualified Code(s): N17.9 - Acute kidney failure, unspecified - Plan CT chest no acute pna iv solu-medrol FU in am
[2020-02-29] MEDS ORDERED: Non-Formulary Item 1 EACH (Budesonide/Formoterol Fumarate [Budesonide-Formoterol 160-4.5] INH SCH (09:00)
[2020-02-29] MEDS: Heparin 5,000 UNITS/ML VIAL SC SCH ×3 (09:20→21:00)
[2020-02-29] MEDS: methylPREDNISolone Sod Succ 40 MG VIAL IVP SCH (09:21)
--- NOTE | 2020-02-29 09:25 | CT ---
CT CHEST WITHOUT CONTRAST CLINICAL INDICATION: Density seen in each lung base on recent CT abdomen and pelvis. COMPARISON: CT abdomen and pelvis on 02/28/2020 FINDINGS: Aorta: Limited evaluation of vascular structures due to lack of intravenous contrast. Vascular calcif ications are seen in the thoracic aorta which is normal in caliber. Vascular calcifications are also seen in the coronary arteries. Lungs: Reticulonodular densities are seen in the lower lobes bilaterally as well as in the right midd le lobe and lingula with slightly greater patchy parenchymal density seen in the medial aspect of the lingula and right middle lobe with associated bronchiectasis. Findings likely related to infectio us or inflammatory process. Atypical infectious process is a possibility. No pleural effusion is identified. Mediastinum: Lack of intravenous contrast limits evaluation for lymphadenopathy, but no definite enla rged lymph nodes are seen by CT size criteria. Small hiatal hernia is present. Thyroid gland: Grossly normal nonenhanced CT appearance. Osseous structures: Mild degenerative changes are seen in the spine. No suspicious lytic or sclerotic osseous lesions are identified. Chest wall: No abnormality visualized. Upper abdomen: Cholecystectomy changes are seen. Vascular calcifications are seen in the visualized u pper abdominal aorta. IMPRESSION: 1. As noted on recent CT abdomen, there are are reticulonodular densities seen within the right middl e lobe and lingula as well as bilateral lower lobes with slightly greater parenchymal density at the left lung base. There are wedge-shaped areas of patchy increased density with associated bronchie ctasis in the medial aspect of the lingula and right middle lobe. Findings may be related to infectious or inflammatory process. Atypical infectious process is a possibility. 2. Vascular calcifications. 3. Small hiatal hernia. 4. Postcholecystectomy changes.
[2020-02-29] MEDS: Sodium Chloride 0.9% 1,000 ML IV SCH (10:35)
[2020-02-29] MEDS: Mometasone 200 MCG/Formoterol 5 MCG 120 PUFF INHALER INH SCH (20:12)
[2020-03-01] MEDS: metroNIDAZOLE 500 MG in Premix Bag 1 BAG IVPB SCH ×2 (00:15→08:51)
[2020-03-01] MEDS: Sodium Chloride 0.9% 1,000 ML IV SCH (00:15)
[2020-03-01] MEDS: Ipratropium Bromide 2.5 ml Neb NEB SCH ×2 (00:50→07:17)
[2020-03-01] MEDS: Mometasone 200 MCG/Formoterol 5 MCG 120 PUFF INHALER INH SCH (07:17)
[2020-03-01 08:38] VITALS: BP 136/67; TEMP 98.3
[2020-03-01] MEDS: Heparin 5,000 UNITS/ML VIAL SC SCH (08:51)
[2020-03-01] MEDS: methylPREDNISolone Sod Succ 40 MG VIAL IVP SCH (08:51)
--- NOTE | 2020-03-01 13:07 | DIS ---
DATE OF ADMISSION: 02/28/2020 DATE OF DISCHARGE: 03/01/2020 PRIMARY CARE PROVIDER: Randal Turk MD. DISPOSITION: Discharged to home. FINAL DIAGNOSES: 1. Colitis, resolved. 2. Chronic obstructive pulmonary disease. 3. Acute renal failure, resolved. 4. Pleuritic chest pain, resolved. DISCHARGE MEDICATIONS: 1. Incruse Ellipta one puff as directed. 2. Budesonide/formoterol 160/4.5 two puffs twice a day. 3. Metronidazole 250 mg p.o. t.i.d. for 7 days. ALLERGIES: TO CEFDINIR AND SULFA. CODE STATUS: Full. PENDING AT TIME OF DISCHARGE: Nothing. DIET: As tolerated. CONSULTATIONS: None. PROCEDURES: None. HOSPITAL COURSE: The patient admitted to the hospital through the emergency room to the Hospitalist Service. Chief complaint was diarrhea and fatigue; apparently initiated when she started taking laxatives, but she had fatigue; history of chronic bronchitis/COPD, history of elevated cholesterol, untreated. Her initial studies; normal CBC. Comp metabolic profile showed only an elevated BUN of 23, creatinine of 1.13. Urine was clear. COVID was negative. CT of the abdomen showed some changes in the bases of the lungs and some mural thickening in the rectosigmoid junction. Actually, her diarrhea had resolved on the first 12 hours. She did have some cough and some shortness of breath. A provisional diagnosis of pneumonia was made and because of her COPD, she was given one dose of Solu-Medrol IV. CT of her chest showed some reticulonodular densities. Her chest exam, on physical exam was initially coarse, is now clear. The patient's acute renal failure resolved with IV fluids. She is currently doing well. Normal vital signs. She has been afebrile. Cough has gone. ASSESSMENT: Viral syndrome with transient diarrhea and cough, resolved. Due to the mural thickening on the CT of the abdomen, she is being discharged on Flagyl 250 three times a day for 7 days for followup with Dr. Turk, her primary care provider in 3 to 7 days. Lower endoscopy was suggested by Radiology. I think this would be most safely accomplished as an outpatient procedure. She is doing well at the time of discharge. Job ID: [id number]
== END 2020-03-01 10:49 | disposition home or self-care (01) ==
LOC: ERS 12:42 → ONC 17:36
PROVIDERS: ADMIT Internal Medicine; ATTEND Internal Medicine
DX: K52.9 Noninfective gastroenteritis and colitis, unspecified (principal); J42 Unspecified chronic bronchitis; N17.9 Acute kidney failure, unspecified; R07.81 Pleurodynia; K44.9 Diaphragmatic hernia without obstruction or gangrene; Z79.899 Other long term (current) drug therapy; Z88.1 Allergy status to other antibiotic agents; Z88.2 Allergy status to sulfonamides; Z91.048 Other nonmedicinal substance allergy status; Z20.828 Contact with and (suspected) exposure to other viral communicable diseases
CPT/HCPCS: 51701; 71045; 71250; 74177; 80048; 80053; 81003; 83690; 85025 ×2; 85379; 86140; 94640 ×3; 96361; 96365; 96367; 96375; 99285; U0002; 36415; 96366; 96372; 96376; G0378; J0744; J1644; J2405; J2920; Q9967

== ENCOUNTER 2020-04-17 16:21 | Inpatient (IN) | payer MEDICARE, OTHER ==
[2020-04-17 16:51] LABS: #Basophils 0.1 thou/uL (0.0-0.2); #Eosinphils 0.4 thou/uL (0.0-0.7); #Lymphocytes 1.4 thou/uL (1.20-3.40); #Monocytes 0.8 thou/uL (0.11-0.59); #Neutrophils 5.6 thou/uL (1.40-6.50); %Basophils 1.3 % (0.0-1.0); %Eosinophils 4.8 % (0.0-10.0); %Lymphocytes 17.2 % (21.0-51.0); %Neutrophils 66.8 % (42.0-75.0); Hemoglobin 11.9 g/dL (12.0-16.0); Mean Corpuscular Hemoglobin 29.8 pg (27.0-31.0); Mean Corpuscular Volume 90.4 fL (78.0-98.0); Mean Platelet Volume 6.4 fL (7.4-10.4); Platelet Count 371 thou/uL (130-400); RBC Distribution Width 12.4 % (11.5-14.5); Red Blood Cell (RBC) Count 3.99 mill/uL (4.20-5.40); White Blood Cell (WBC) Count 8.3 thou/uL (4.8-10.8)
[2020-04-17 17:14] LABS: ALT (SGPT) 12 U/L (8-55); AST (SGOT) 15 U/L (5-34); Albumin 3.8 g/dL (3.4-4.8); Alkaline Phosphatase 68 U/L (40-110); Anion Gap 13 mmol/L (10-20); BUN (Urea Nitrogen) 15 mg/dL (9.8-20.1); Bilirubin, Total 0.4 mg/dL (0.2-1.2); Calc. Creatinine Clearance 0 mL/min (70-130); Calcium 8.4 mg/dL (7.8-10.44); Carbon Dioxide 22 mmol/L (23-31); Chloride 105 mmol/L (98-107); Estimated GFR-MDRD 65; Globulin 2.8 g/dL (2.4-3.5); Glucose 98 mg/dL (83-110); Protein, Total 6.6 g/dL (6.0-8.3); Sodium 136 mmol/L (136-145)
--- NOTE | 2020-04-17 17:43 | RAD ---
TWO VIEWS LEFT FORELE04/17/20 PROVIDED CLINICAL HISTORY: Pain status post fall. FINDINGS: There is no evidence for fracture or other acute osseous abnormality. If there is persistent clinical concern, conservative management and follow-up imaging are advised. IMPRESSION: As above. POS: [facility]
--- NOTE | 2020-04-17 17:49 | CT ---
CT BRAIN: Date: 04/17/2020 PROVIDED CLINICAL HISTORY: Trauma, status post fall, generalized weakness. COMPARISON: 03/05/2015. FINDINGS: The ventricular system appears normal in size and morphology. There is no evidence for intracranial h emorrhage or mass effect. Vascular calcifications are seen. The extracranial soft tissues and osseous structures appear otherwise unremarkable. IMPRESSION: No evidence for intracranial hemorrhage or mass effect. POS: [facility]
--- NOTE | 2020-04-17 17:53 | RAD ---
FRONTAL RADIOGRAPH CHEST: 04/17/20 COMPARISON: 02/28/20 HISTORY: Fall, pain, feeling faint. FINDINGS: There are increased linear interstitial densities of pulmonary hyperinflation suggesting chronic inte rstitial density. No pneumothorax, pleural fluid, lobar consolidation, or alveolar edema. IMPRESSION: Interstitial prominence and pulmonary hyperinflation with no focal consolidation or alveolar edema. POS: [facility]
--- NOTE | 2020-04-17 17:54 | RAD ---
RIGHT HAND RADIOGRAPHS THREE VIEWS: 04/17/20 PROVIDED CLINICAL HISTORY: Pain status post injury. 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 There is no evidence for fracture or ot her acute osseous abnormality. If there is persistent clinical concern, conservative management and f ollow-up imaging are advised. IMPRESSION: As above. POS: [facility]
[2020-04-17 18:27] LABS: Magnesium 1.9 mg/dL (1.6-2.6)
[2020-04-17] MEDS ORDERED: Rabies Vaccine Human 2.5 UNITS VIAL IM ONE (18:30)
--- NOTE | 2020-04-17 19:56 | ULT ---
LEFT LOWER EXTREMITY VENOUS DOPPLER ULTRASOUND: 04/17/20 COMPARISON: None. HISTORY: Left lower extremity pain, swelling, edema, assess for DVT. TECHNIQUE: Multiplanar mcgraw scale sonographic imaging of the venous structures of the left lower extremity obtai franc with color flow and spectral analysis. FINDINGS: the left common femoral vein, greater saphenous vein, profunda femoral vein, femoral vein, popliteal vein, and posterior tibial vein are patent. There is normal blood flow, augmentation, and compression within the deep venous system on the left with no evidence for DVT. IMPRESSION: No evidence for left lower extremity DVT. POS: [facility]
[2020-04-17] MEDS ORDERED: Morphine 4 MG/ML VIAL ONE (20:53)
[2020-04-17 20:55] LABS: Bilirubin Negative (Negative); Blood, Urine Negative (Negative); Clarity Clear (Clear); Glucose, Urine (Dipstick) Normal (Negative); Ketone, Urine Negative (Negative); Leukocyte Negative Leu/uL (Negative); Nitrite Negative (Negative); Protein, Urine (Dipstick) Negative (Neg-Trace); Specific Gravity, Urine 1.006 (1.002-1.036); Urobilinogen Normal mg/dL (Less than 2)
[2020-04-17 22:38] VITALS: BMI 20.9
[2020-04-18] MEDS ORDERED: Acetaminophen 650 MG Suppository PR PRN (00:15)
[2020-04-18] MEDS ORDERED: Magnesium Oxide 400 MG TAB PO SCH (00:30)
[2020-04-18 01:41] LABS: Lactic Acid 0.6 mmol/L (0.5-2.2)
[2020-04-18 03:58] LABS: #Basophils 0.1 thou/uL (0.0-0.2); #Eosinphils 0.4 thou/uL (0.0-0.7); #Lymphocytes 1.5 thou/uL (1.20-3.40); #Monocytes 1.2 thou/uL (0.11-0.59); #Neutrophils 6.6 thou/uL (1.40-6.50); %Eosinophils 4.4 % (0.0-10.0); %Lymphocytes 15.6 % (21.0-51.0); %Monocytes 12.1 % (0.0-10.0); %Neutrophils 66.8 % (42.0-75.0); Hemoglobin 11.8 g/dL (12.0-16.0); Mean Corpuscular Hemoglobin 30.7 pg (27.0-31.0); Mean Corpuscular Volume 90.4 fL (78.0-98.0); Mean Platelet Volume 6.5 fL (7.4-10.4); Platelet Count 343 thou/uL (130-400); RBC Distribution Width 12.4 % (11.5-14.5); Red Blood Cell (RBC) Count 3.85 mill/uL (4.20-5.40); White Blood Cell (WBC) Count 9.9 thou/uL (4.8-10.8)
[2020-04-18 04:24] LABS: Anion Gap 12 mmol/L (10-20); BUN (Urea Nitrogen) 13 mg/dL (9.8-20.1); Calc. Creatinine Clearance 46 mL/min (70-130); Calcium 8.3 mg/dL (7.8-10.44); Carbon Dioxide 22 mmol/L (23-31); Chloride 107 mmol/L (98-107); Estimated GFR-MDRD 69; Glucose 101 mg/dL (83-110); Potassium 3.8 mmol/L (3.5-5.1); Sodium 137 mmol/L (136-145)
[2020-04-18] MEDS: Acetaminophen 325 MG TAB PO PRN ×2 (05:06→09:33)
[2020-04-18] MEDS: Sodium Chloride 0.9% 1,000 ML IV SCH (05:14)
--- NOTE | 2020-04-18 06:12 | HP ---
TIME OF ASSESSMENT: 2200 hours. PRIMARY CARE PHYSICIAN: Preet Alvarado MD CHIEF COMPLAINT: Multiple falls today. HISTORY OF PRESENT ILLNESS: Ms. Monsivais is an 85-year-old woman, who presented to the emergency department after having three falls throughout the day today. The patient has some mild issues with her memory, but states that she recalls most of what happened today. States that she was grocery shopping this morning and walking through the aisles when her legs suddenly gave way. She denies experiencing any pain in her legs. Denies experiencing any lightheadedness or dizziness prior to falling and denies any chest pain, palpitations, or shortness of breath. She did not develop any diaphoresis. States she had absolutely no warning sign and feels as if her legs were suddenly weak. Once she stood, she recalls feeling slightly lightheaded. Denies any spinning sensation, vision changes, headaches, nausea, or vomiting. States that she was able to carry on with her shopping. After she was done, she went home and had another fall while unloading the grocery bags from her car. States it happened suddenly without any warning or preceding symptoms. She once again felt as if her legs suddenly became weak, making it difficult to stand. Denies any major trauma or injury. Did not have any loss of consciousness at any point and did not injure her head. The second fall happened shortly after that, and it was very similar to the first and second falls. The patient states that she has had discomfort in her left hip for 2-3 years, but she has noted it has been progressively worsening in the last several days or weeks. The patient is unable to say just over how long it has been getting worse, but states it has been recent. She recalls having some discomfort down the left side of her leg, which she describes as an aching sensation. No burning sensation. No swelling noted or skin changes. She does not remember if she had any fall or injury prior to today that would have caused her to develop this pain down her leg. Denies any extremity weakness or gait disturbances. States she is able to walk and has not had any pain with weightbearing. She attempted to get an appointment with her primary care physician, but states she was unable to see him. The patient reports she was bitten by a stray cat two days ago. States the cat was on her porch and she tried to shoo it away with a broom and suddenly the cat attacked her and bit her multiple times on the right lower extremity. She did not seek any medical attention. She went inside her home and states she washed out the wounds deeply. States they have been healing well and she has not had any skin changes associated with it. No signs of infection. No fevers or chills or sweats at home. REVIEW OF SYSTEMS: All other review of systems apart from those mentioned above in HPI are negative. ED COURSE: In the emergency department, the patient was counseled about rabies, but she refused any vaccinations. States she would like to think about it this evening and decide in the morning. She underwent imaging of the left tib-fib for the pain she was experiencing and did not have any acute fractures or any other abnormalities. The patient also underwent imaging of her right hand, which only showed chronic changes of osteoarthritis. A CT of the head was done as well, which showed no intracranial abnormalities. She had a urinalysis done, which was unremarkable. Left lower extremity venous Doppler done as well, which is negative. The patient is being admitted for further workup. PAST MEDICAL HISTORY: 1. COPD. 2. Hyperlipidemia. 3. Osteoarthritis. PAST SURGICAL HISTORY: Cholecystectomy. FAMILY HISTORY: Noncontributory. The patient lives alone and she is fully independent. She does not require any assisted devices for mobility. SOCIAL HISTORY: Denies any history of tobacco use or alcohol consumption. ALLERGIES: 1. SULFA. 2. CEFDINIR. CURRENT MEDICATIONS: 1. Acetaminophen. 2. Incruse Ellipta. 3. Budesonide/formoterol. PHYSICAL EXAMINATION: GENERAL: The patient appears thin, well developed, and is in no distress. She is resting comfortably in bed. VITAL SIGNS: Temperature 97.8, pulse 84, respirations 16, O2 saturation 98% on room air, and blood pressure 153/67. HEENT: Normocephalic and atraumatic. Pupils are equal, round, and reactive to light. Extraocular movements intact. No nystagmus present. Oropharynx is clear. Oral mucosa is moist. NECK: Supple. No cervical spine tenderness. Full range of motion. CARDIAC: Regular rate and rhythm. No audible murmurs, rubs, or gallops. No chest wall tenderness. LUNGS: Clear to auscultation bilaterally without any wheezes or crackles. The patient without any tachypnea. Normal chest expansion. ABDOMEN: Soft, nondistended, nontender. Normal bowel sounds. EXTREMITIES: No lower extremity edema. Right lower extremity notable for multiple healing superficial wounds from the cat bite. They have no surrounding erythema or discharge. Have no appearance of being infected. Peripheral pulses are equal and strong bilaterally. SKIN: Warm and dry. Normal turgor. NEUROLOGIC: Alert and oriented x3. Speech normal. Facial sensation intact. Facial movements normal. Power 5/5 in all limbs and sensation intact. No neuro deficits on exam. LABORATORY DATA: White blood count 9.3, hemoglobin 11.9, hematocrit 36.1, platelets 371, neutrophils 66.8%. Sodium 136, potassium 4.0, BUN 15, creatinine 0.83, GFR 65 (this is improved from her baseline). Glucose 98, calcium 8.4, magnesium 1.9. LFTs unremarkable. Alkaline phosphatase 68, CK 248. Troponin negative. Albumin 3.8. IMAGING DATA: As mentioned above in HPI. IMPRESSION AND PLAN: Ms. Monsivais is a very pleasant 85-year-old woman, who has presented to the emergency department today after having multiple falls associated with left hip pain and left thigh pain. She is without any complaints at present and is being admitted for workup of the following. 1. Mechanical falls x3. Given the fact that she has some mild issues with her memory and was alone when these episodes happened, we will complete workup for possible presyncope. She will remain on cardiac monitoring. We are trending her troponins. We will obtain orthostatic blood pressures in the morning following additional imaging of her pelvis. She has had normal urinalysis. Laboratory studies are unremarkable thus far except for CK, which is mildly elevated. We will give gentle hydration. We will also check additional labs including magnesium and TSH. We will obtain an echo as well. 2. Left hip pain. The patient had a left tib-fib x-ray, which was unremarkable. We will obtain a pelvic and left hip x-ray to rule out any underlying hip fracture. If unremarkable, okay to proceed with PT, OT, and orthostatic BPs as mentioned above. 3. Cat bite. No evidence of infection. The wounds seem to be very well healed and scabbed over. I do not see any indication for consultation with Wound Care. The patient would like to think about recommendations for the rabies vaccine and we will discuss further with daytime physician. 4. Chronic obstructive pulmonary disease. We will resume her home inhalers. Monitor O2 saturations. 5. Deep venous thrombosis prophylaxis. Hold any pharmaco-prophylaxis for now pending results of the x-ray. 6. Code status is full. Surrogate decision maker is her son, Gabriele Lu. The patient's case was discussed with attending, who agrees with plan of care as described above. Job ID: [id number]
[2020-04-18] MEDS: Mometasone 200 MCG/Formoterol 5 MCG 120 PUFF INHALER INH SCH ×2 (07:00→18:27)
--- NOTE | 2020-04-18 09:52 | RAD ---
RADIOGRAPH PELVIS 1 VIEW: DATE: 04/18/2020. HISTORY: An 85-year-old female with pelvic pain due to fall. FINDINGS: The pelvic rings appear to be grossly intact with no evidence of grossly displaced fracture. If the patient's symptoms do not improve in the next several days, then noncontrast MRI of the pelvis would be the most sensitive modality to evaluate for occult, acute, nondisplaced pelvic or hip fracture. M ild DJD of bilateral hips. Levoscoliosis of lumbar spine with associated degenerative changes at lum bosacral junction. IMPRESSION: No fracture identified. POS: [facility]
--- NOTE | 2020-04-18 09:53 | RAD ---
RADIOGRAPH LEFT HIP 2 VIEWS: Date: 04/17/2020 HISTORY: 85-year-old female with traumatic left hip pain. FINDINGS: No definite fracture is identified. However, if symptoms do not improve in the next few days, then a noncontrast MRI of the pelvis and hip would be the most sensitive modality for detection of occult ac darlene nondisplaced fracture. There are mild degenerative changes at the acetabular roof. No high grade joint space narrowing. No femoral head collapse. No dislocation. IMPRESSION: No acute fracture identified. POS: [facility]
[2020-04-18] MEDS ORDERED: Cholecalciferol 1,000 UNITS (25 MCG) TAB PO SCH (10:15)
[2020-04-18 12:02] LABS: SARS-CoV-2 MS2 Positive; SARS-CoV-2 N Gene Negative; SARS-CoV-2 S Gene Negative; SARS-CoV-2 by NAA Not Detected (NotDetected); SARS-CoV-2 orf1ab Negative
[2020-04-18] MEDS: Naproxen 500 MG TAB PO PRN (13:17)
[2020-04-18] MEDS: HYDROcodone/Acetaminophen 5/325 mg Tablet PO PRN (14:45)
[2020-04-19] MEDS: Mometasone 200 MCG/Formoterol 5 MCG 120 PUFF INHALER INH SCH ×2 (07:21→19:45)
[2020-04-19] MEDS: Cholecalciferol 1,000 UNITS (25 MCG) TAB PO SCH (09:47)
[2020-04-19] MEDS: HYDROcodone/Acetaminophen 5/325 mg Tablet PO PRN (09:47)
[2020-04-19] MEDS: Pantoprazole 40 MG GRANULES PACKET PO SCH (09:49)
--- NOTE | 2020-04-19 16:23 | PDOC.HOSPP ---
- Subjective Encounter Date: 04/19/20 Subjective: The patient was able to participate with PT. - Objective Vital Signs & Weight: Vital Signs (12 hours) Temp Pulse Pulse Resp BP BP BP 04/19/20 09:59 89 147/70 H 04/19/20 08:12 96.1 F L 82 16 169/77 H 04/19/20 05:25 136/62 134/66 BP Pulse Ox 04/19/20 09:59 04/19/20 08:12 96 04/19/20 05:25 150/67 H Weight Weight 121 lb 14.4 oz I&O: 04/18/20 04/19/20 04/20/20 06:59 06:59 06:59 Intake Total 574 2044 Output Total 200 350 Balance 374 1694 Result Diagrams: 04/18/20 03:49 04/18/20 03:49 Hospitalist ROS - Medication Medications: Active Medications Generic Name Dose Route Start Last Admin Trade Name Freq PRN Reason Stop Dose Admin Hydrocodone Bitart/Acetaminophen 1 tab 04/18/20 14:30 04/19/20 09:47 Hydrocodone/Acetaminophen 5/325 Mg Tablet PO 1 tab Q4H PRN Administration Pain 6-10 Cholecalciferol 1,000 units 04/19/20 09:00 04/19/20 09:47 Cholecalciferol 1,000 Units (25 Mcg) Tab PO 1,000 units DAILY LIONEL Administration Sodium Chloride 1,000 mls @ 50 mls/hr 04/18/20 05:00 04/18/20 05:14 Normal Saline 0.9% IV 1,000 mls .Q20H LIONEL Administration Mometasone Furoate/Formoterol Fumar 2 puff 04/18/20 06:30 04/19/20 07:21 Mometasone 200 Mcg/Formoterol 5 Mcg 120 Puff Inhaler INH 2 puff BID-RT LIONEL Administration Naproxen 250 mg 04/18/20 11:06 04/18/20 13:17 Naproxen 500 Mg Tab PO 250 mg TIDPRN PRN Administration Mild-Moderate Pain (1-5) Pantoprazole Sodium 40 mg 04/19/20 09:00 04/19/20 09:49 Pantoprazole 40 Mg Granules Packet PO 40 mg DAILY LIONEL Administration - Exam General Appearance: awake alert Neck: supple, no JVD Heart: RRR Respiratory: normal chest expansion, no tachypnea Neurological: cranial nerve grossly intact, no new deficit Psychiatric: A&O x 3 Hosp A/P (1) Generalized weakness Code(s): R53.1 - WEAKNESS Status: Acute (2) Recurrent falls Code(s): R29.6 - REPEATED FALLS Status: Acute - Plan Continue PT and OT. Continue vitamin D supplementation. No evidence of bony fractures. Consult case management for rehab placement.
[2020-04-19] MEDS: Sodium Chloride 0.9% 1,000 ML IV SCH ×2 (20:10→21:37)
[2020-04-20] MEDS: HYDROcodone/Acetaminophen 5/325 mg Tablet PO PRN (05:36)
[2020-04-20] MEDS: Mometasone 200 MCG/Formoterol 5 MCG 120 PUFF INHALER INH SCH ×2 (07:13→19:05)
[2020-04-20] MEDS: Pantoprazole 40 MG GRANULES PACKET PO SCH (08:27)
[2020-04-20] MEDS: Cholecalciferol 1,000 UNITS (25 MCG) TAB PO SCH (08:30)
[2020-04-20] MEDS: Ipratropium Bromide 2.5 ml Neb NEB SCH ×3 (08:50→19:03)
--- NOTE | 2020-04-20 14:33 | PDOC.HOSPP ---
- Subjective Encounter Date: 04/20/20 Subjective: The patient is tolerating physical therapy. - Objective Vital Signs & Weight: Vital Signs (12 hours) Temp Pulse Resp BP BP BP BP 04/20/20 13:50 87 12 04/20/20 11:40 98.4 F 75 14 139/63 138/65 143/67 H 04/20/20 08:50 95 19 04/20/20 08:04 98.1 F 85 14 145/65 H 135/90 129/59 L 04/20/20 05:00 161/71 H 154/71 H 146/69 H 04/20/20 03:31 98.4 F 83 18 146/69 H Pulse Ox 04/20/20 13:50 04/20/20 11:40 98 04/20/20 08:50 04/20/20 08:04 97 04/20/20 05:00 04/20/20 03:31 97 Weight Weight 122 lb 8 oz I&O: 04/19/20 04/20/20 04/21/20 06:59 06:59 06:59 Intake Total 2044 1400 240 Output Total 350 Balance 1694 1400 240 Result Diagrams: 04/18/20 03:49 04/18/20 03:49 Hospitalist ROS - Medication Medications: Active Medications Generic Name Dose Route Start Last Admin Trade Name Freq PRN Reason Stop Dose Admin Hydrocodone Bitart/Acetaminophen 1 tab 04/18/20 14:30 04/20/20 05:36 Hydrocodone/Acetaminophen 5/325 Mg Tablet PO 1 tab Q4H PRN Administration Pain 6-10 Cholecalciferol 1,000 units 04/19/20 09:00 04/20/20 08:30 Cholecalciferol 1,000 Units (25 Mcg) Tab PO 1,000 units DAILY LIONEL Administration Sodium Chloride 1,000 mls @ 50 mls/hr 04/18/20 05:00 04/19/20 21:37 Normal Saline 0.9% IV 1,000 mls .Q20H LIONEL Administration Ipratropium [place] 2.5 ml 04/20/20 07:00 04/20/20 13:50 Ipratropium [place] 2.5 Ml Neb NEB 2.5 ml [id number] LIONEL Administration Mometasone Furoate/Formoterol Fumar 2 puff 04/18/20 06:30 04/20/20 07:13 Mometasone 200 Mcg/Formoterol 5 Mcg 120 Puff Inhaler INH 2 puff BID-RT LIONEL Administration Naproxen 250 mg 04/18/20 11:06 04/18/20 13:17 Naproxen 500 Mg Tab PO 250 mg TIDPRN PRN Administration Mild-Moderate Pain (1-5) Pantoprazole Sodium 40 mg 04/19/20 09:00 04/20/20 08:27 Pantoprazole 40 Mg Granules Packet PO 40 mg DAILY LIONEL Administration - Exam General Appearance: awake alert ENT: normocephalic atraumatic Neck: supple, no JVD Heart: RRR Respiratory: normal chest expansion, no tachypnea Neurological: cranial nerve grossly intact, no focal deficits Hosp A/P (1) Generalized weakness Code(s): R53.1 - WEAKNESS Status: Acute (2) Recurrent falls Code(s): R29.6 - REPEATED FALLS Status: Acute - Plan Continue PT and OT. Continue vitamin D supplementation. No evidence of bony fractures. Consult case management for rehab placement. This will probably happen early next week due to her insurance.
[2020-04-20] MEDS: Sodium Chloride 0.9% 1,000 ML IV SCH (17:18)
[2020-04-21] MEDS: Ipratropium Bromide 2.5 ml Neb NEB SCH ×4 (00:12→18:55)
[2020-04-21] MEDS: Mometasone 200 MCG/Formoterol 5 MCG 120 PUFF INHALER INH SCH ×2 (07:39→18:54)
[2020-04-21] MEDS: Pantoprazole 40 MG GRANULES PACKET PO SCH (10:21)
[2020-04-21] MEDS: Cholecalciferol 1,000 UNITS (25 MCG) TAB PO SCH (10:21)
[2020-04-21] MEDS: Sodium Chloride 0.9% 1,000 ML IV SCH (12:56)
[2020-04-21] MEDS: Naproxen 500 MG TAB PO PRN (13:03)
--- NOTE | 2020-04-21 15:44 | PDOC.HOSPP ---
- Subjective Subjective: Seen examined at bedside. No acute events overnight. Patient denied pain. pending rehab - Objective Vital Signs & Weight: Vital Signs (12 hours) Temp Pulse Resp BP BP BP BP 04/21/20 13:56 90 12 04/21/20 12:52 98.3 F 86 16 144/67 H 04/21/20 11:09 94 150/71 H 04/21/20 11:06 83 154/70 H 04/21/20 11:03 86 144/67 H 04/21/20 10:20 04/21/20 10:14 97.5 F L 97 16 150/68 H 04/21/20 07:39 87 15 04/21/20 07:26 87 15 04/21/20 04:00 98.6 F 78 18 146/66 H Pulse Ox 04/21/20 13:56 04/21/20 12:52 98 04/21/20 11:09 04/21/20 11:06 04/21/20 11:03 04/21/20 10:20 98 04/21/20 10:14 98 04/21/20 07:39 04/21/20 07:26 04/21/20 04:00 93 L Weight Weight 121 lb I&O: 04/20/20 04/21/20 04/22/20 06:59 06:59 06:59 Intake Total 1400 1760 Balance 1400 1760 Result Diagrams: 04/18/20 03:49 04/18/20 03:49 Radiology Reviewed by me: Yes EKG Reviewed by me: Yes Hospitalist ROS - Medication Medications: Active Medications Generic Name Dose Route Start Last Admin Trade Name Freq PRN Reason Stop Dose Admin Hydrocodone Bitart/Acetaminophen 1 tab 04/18/20 14:30 04/20/20 05:36 Hydrocodone/Acetaminophen 5/325 Mg Tablet PO 1 tab Q4H PRN Administration Pain 6-10 Cholecalciferol 1,000 units 04/19/20 09:00 04/21/20 10:21 Cholecalciferol 1,000 Units (25 Mcg) Tab PO 1,000 units DAILY LIONEL Administration Ipratropium [place] 2.5 ml 04/20/20 07:00 04/21/20 13:56 Ipratropium [place] 2.5 Ml Neb NEB 2.5 ml [id number] LIONEL Administration Mometasone Furoate/Formoterol Fumar 2 puff 04/18/20 06:30 04/21/20 07:39 Mometasone 200 Mcg/Formoterol 5 Mcg 120 Puff Inhaler INH 2 puff BID-RT LIONEL Administration Naproxen 250 mg 04/18/20 11:06 04/21/20 13:03 Naproxen 500 Mg Tab PO 250 mg TIDPRN PRN Administration Mild-Moderate Pain (1-5) Pantoprazole Sodium 40 mg 04/19/20 09:00 04/21/20 10:21 Pantoprazole 40 Mg Granules Packet PO 40 mg DAILY LIONEL Administration - Exam General Appearance: NAD Eye: PERRL ENT: normocephalic atraumatic Neck: supple Heart: RRR Respiratory: CTAB Gastrointestinal: soft Extremities: no cyanosis Skin: normal turgor Neurological: cranial nerve grossly intact Hosp A/P - Plan Patient is a pleasant 85 years old female, who presented to the ED with multiple falls, work-up no evidence of fracture. workup for syncope unrevealing. Recurrent Falls - mechanical, no fx on imaging studies --cont PT. Pending inpt rehab. supportive cares. D/C IVF Left hip pain - d/t recent falls --Pelvic Xr no fx. cont analgesics prn COPD - stable, not in acute exac --cont home meds
[2020-04-22] MEDS: Ipratropium Bromide 2.5 ml Neb NEB SCH ×2 (01:03→10:34)
[2020-04-22] MEDS: Cholecalciferol 1,000 UNITS (25 MCG) TAB PO SCH (08:06)
[2020-04-22] MEDS: Naproxen 500 MG TAB PO PRN (08:06)
[2020-04-22] MEDS: Pantoprazole 40 MG GRANULES PACKET PO SCH (08:06)
[2020-04-22] MEDS: Gabapentin 100 MG CAP PO SCH ×2 (09:50→19:37)
[2020-04-22] MEDS: Mometasone 200 MCG/Formoterol 5 MCG 120 PUFF INHALER INH SCH (10:34)
[2020-04-22] MEDS: Lidocaine 5% Patch TD SCH (11:05)
--- NOTE | 2020-04-22 14:26 | PDOC.HOSPP ---
- Subjective Subjective: c/o hip pain, and Lt LE neuropathy. Pt reports she experienced this pain before the fall - Objective Vital Signs & Weight: Vital Signs (12 hours) Temp Pulse Resp BP Pulse Ox 04/22/20 11:46 97.6 F 82 16 167/74 H 95 04/22/20 08:10 97 04/22/20 08:01 98.9 F 84 16 166/71 H 97 04/22/20 05:08 98 F 94 18 157/69 H 94 L Weight Weight 124 lb 3.2 oz I&O: 04/21/20 04/22/20 04/23/20 06:59 06:59 06:59 Intake Total 1760 1640 Balance 1760 1640 Result Diagrams: 04/18/20 03:49 04/18/20 03:49 Hospitalist ROS - Medication Medications: Active Medications Generic Name Dose Route Start Last Admin Trade Name Freq PRN Reason Stop Dose Admin Hydrocodone Bitart/Acetaminophen 1 tab 04/18/20 14:30 04/20/20 05:36 Hydrocodone/Acetaminophen 5/325 Mg Tablet PO 1 tab Q4H PRN Administration Pain 6-10 Cholecalciferol 1,000 units 04/19/20 09:00 04/22/20 08:06 Cholecalciferol 1,000 Units (25 Mcg) Tab PO 1,000 units DAILY LIONEL Administration Gabapentin 100 mg 04/22/20 09:00 04/22/20 09:50 Gabapentin 100 Mg Cap PO 100 mg BID LIONEL Administration Lidocaine 2 patch 04/22/20 09:00 04/22/20 11:05 Lidocaine 5% Patch TD 2 patch DAILY LIONEL Administration Pantoprazole Sodium 40 mg 04/19/20 09:00 04/22/20 08:06 Pantoprazole 40 Mg Granules Packet PO 40 mg DAILY LIONEL Administration Hosp A/P - Plan - Exam General Appearance: NAD Eye: PERRL ENT: normocephalic atraumatic Neck: supple Heart: RRR Respiratory: CTAB Gastrointestinal: soft Extremities: no cyanosis Skin: normal turgor Neurological: cranial nerve grossly intact Patient is a pleasant 85 years old female, who presented to the ED with multiple falls, work-up no evidence of fracture. workup for syncope unrevealing. Recurrent Falls - mechanical, no fx on imaging studies --cont PT. Pending inpt rehab. supportive cares. D/C IVF as pt is tolerated PO Left hip pain - d/t recent falls --Pelvic Xr no fx. cont analgesics prn, adjust regimen. Peripheral Neuropathy --add Gabapentin COPD - stable, not in acute exac --cont home meds
[2020-04-22] MEDS: Lidocaine Patch Removal 1 EACH TOP SCH (19:39)
[2020-04-23] MEDS: Gabapentin 100 MG CAP PO SCH ×2 (08:21→20:02)
[2020-04-23] MEDS: Cholecalciferol 1,000 UNITS (25 MCG) TAB PO SCH (08:21)
[2020-04-23] MEDS: Pantoprazole 40 MG GRANULES PACKET PO SCH (08:21)
[2020-04-23] MEDS: Lidocaine 5% Patch TD SCH (08:24)
--- NOTE | 2020-04-23 18:52 | PDOC.HOSPP ---
- Subjective Subjective: hip pain improved. inpt rehab denied, did Peer to peer - rec SNF vs HH with PT d/w with pt, she would like to go home with HH/HPT in AM - Objective Vital Signs & Weight: Vital Signs (12 hours) Temp Pulse Resp BP BP Pulse Ox 04/23/20 16:00 97.5 F L 91 18 153/80 H 96 04/23/20 12:31 97.9 F 80 18 145/76 H 97 04/23/20 08:30 95 04/23/20 07:58 97.9 F 83 18 145/78 H 95 Weight Weight 124 lb 3.2 oz I&O: 04/22/20 04/23/20 04/24/20 06:59 06:59 06:59 Intake Total 1640 360 800 Balance 1640 360 800 Result Diagrams: 04/18/20 03:49 04/18/20 03:49 Hospitalist ROS - Medication Medications: Active Medications Generic Name Dose Route Start Last Admin Trade Name Freq PRN Reason Stop Dose Admin Hydrocodone Bitart/Acetaminophen 1 tab 04/18/20 14:30 04/20/20 05:36 Hydrocodone/Acetaminophen 5/325 Mg Tablet PO 1 tab Q4H PRN Administration Pain 6-10 Cholecalciferol 1,000 units 04/19/20 09:00 04/23/20 08:21 Cholecalciferol 1,000 Units (25 Mcg) Tab PO 1,000 units DAILY LIONEL Administration Gabapentin 100 mg 04/22/20 09:00 04/23/20 08:21 Gabapentin 100 Mg Cap PO 100 mg BID LIONEL Administration Lidocaine 2 patch 04/22/20 09:00 04/23/20 08:24 Lidocaine 5% Patch TD 2 patch DAILY LIONEL Administration Miscellaneous Medication 2 each 04/22/20 21:00 04/22/20 19:39 Lidocaine Patch Removal 1 Each TOP Not Given 2100 LIONEL Pantoprazole Sodium 40 mg 04/19/20 09:00 04/23/20 08:21 Pantoprazole 40 Mg Granules Packet PO 40 mg DAILY LIONEL Administration Hosp A/P - Plan - Exam General Appearance: NAD Eye: PERRL ENT: normocephalic atraumatic Neck: supple Heart: RRR Respiratory: CTAB Gastrointestinal: soft Extremities: no cyanosis Skin: normal turgor Neurological: cranial nerve grossly intact Patient is a pleasant 85 years old female, who presented to the ED with multiple falls, work-up no evidence of fracture. workup for syncope unrevealing. Recurrent Falls - mechanical, no fx on imaging studies --inpt rehab denied by insurance. Home in AM with HH and HPT if pain is adequately controlled Left hip pain - d/t recent falls --Pelvic Xr no fx. cont analgesics prn, adjust regimen. Peripheral Neuropathy --add Gabapentin COPD - stable, not in acute exac --cont home meds
[2020-04-23] MEDS: Lidocaine Patch Removal 1 EACH TOP SCH (20:06)
[2020-04-24 07:36] VITALS: TEMP 97.7
[2020-04-24] MEDS: Pantoprazole 40 MG GRANULES PACKET PO SCH (09:03)
[2020-04-24] MEDS: Cholecalciferol 1,000 UNITS (25 MCG) TAB PO SCH (09:03)
[2020-04-24] MEDS: Gabapentin 100 MG CAP PO SCH (09:03)
[2020-04-24] MEDS: Lidocaine 5% Patch TD SCH (11:25)
[2020-04-24 12:18] VITALS: BP 130/72
--- NOTE | 2020-04-24 17:12 | DIS ---
DATE OF ADMISSION: 04/17/2020 DATE OF DISCHARGE: 04/24/2020 PRIMARY CARE PHYSICIAN: Randal Turk MD DISCHARGE DIAGNOSES: 1. Recurrent fall. 2. Left hip pain. 3. Peripheral neuropathy. 4. Chronic obstructive pulmonary disease. CONSULTATIONS: None. LABORATORY DATA AND IMAGING STUDIES: CBC; WBC of 9.9, hemoglobin 11.8, hematocrit 34.8, and platelets 343. Chemistry; sodium 137, potassium 3.8, chloride is 107, carbon dioxide 22, BUN 13, creatinine 0.79. LFT within normal limits. Troponins negative x3. BNP 34. TSH level 2.1. UA was negative. COVID PCR was negative. IMAGING STUDIES: Pelvic x-ray, no fracture identified. Hip x-ray, no acute fracture identified. Lower extremity Dopplers, no evidence of DVT. Tib-fib x-ray, negative for fracture. Hand x-ray, negative for fracture. Brain CT, no evidence of acute intracranial abnormalities. Chest x-ray, interstitial prominence of pulmonary hyperinflation with no focal consolidations. 2D echo, EF 60% to 65%, grade 1/3 diastolic dysfunction, mild MR, [id number] AR. HISTORY OF PRESENT ILLNESS AND BRIEF HOSPITAL COURSE: The patient is a pleasant 85-year-old female, who has significant past medical history of COPD, who presented to the ED with status post fall x3. The patient reports that her legs got buckle, subsequently she fell down. Denies any history of head injury, no loss of consciousness. She was subsequently brought to the ED for further evaluation. Initial workup in the ED including serial enzyme, CT head was negative. She was ultimately admitted to Hosp[facility] for further evaluation. She was monitored on tele, no evidence of arrhythmia. Her troponins negative x3. She underwent an echo with multiple imaging studies. There is no evidence of fracture. PT eval. Recommended inpatient rehab. However, her insurance declined. We also did a [id number] review, her insurance recommended detention facility versus home with home physical therapy. I have discussed the options with the patient. She would like to go home with home health. Plan of care was also discussed with her daughter at bedside. Her lab was unremarkable. She is tolerating diet. At this time, her pain is much better controlled. The patient is stable to discharge home with home health. DISPOSITION: The patient is stable to discharge home with home health. ACTIVITY: As tolerated, fall precautions. DIET: Regular diet. FOLLOWUP CARE: The patient to follow up with her PCP in 1 to 2 weeks. PHYSICAL EXAMINATION: VITAL SIGNS: Temperature is 97.7, pulse 67, respiratory rate 16, saturating 97% on room air, and blood pressure is 130/72. GENERAL APPEARANCE: The patient appears to be comfortable. She is not in acute distress. HEENT: Normocephalic, atraumatic. Mucous membranes moist. NECK: Supple. No lymphadenopathy. No JVD. CARDIOVASCULAR: Regular rate and rhythm. S1 and S2 noted. No murmur. PULMONOLOGY: Clear to auscultation bilaterally. ABDOMEN: Soft, nontender, nondistended. Positive bowel sounds. MUSCULOSKELETAL: No joint pain or tenderness. NEUROLOGIC: Cranial nerves 2 through 12 grossly intact. No focal weakness. PSYCHIATRIC: The patient is alert and oriented x3 with normal affect. DISCHARGE MEDICATIONS: New prescription. 1. Tramadol 50 mg p.o. q.6 p.r.n. for pain. 2. Gabapentin 300 mg b.i.d. 3. Lidoderm patch 2 patches daily. Resume home medication. 1. Tylenol 650 mg p.r.n. for pain. 2. Incruse Ellipta 62.5 mcg 1 puff inhaler daily. 3. Budesonide 2 puff inhalers b.i.d. Thank you for allowing us to participate in this patient's care. DISCHARGE TIME SPENT: 35 minutes. Job ID: [id number]
== END 2020-04-24 15:51 | disposition home health service (06) | DRG 74 ==
LOC: ERS 16:21 → 2NO 20:47 → T4-B 04-22 17:12
PROVIDERS: ADMIT Internal Medicine; ATTEND Internal Medicine
DX: G62.9 Polyneuropathy, unspecified (principal); M25.552 Pain in left hip; R29.6 Repeated falls; E78.5 Hyperlipidemia, unspecified; M19.90 Unspecified osteoarthritis, unspecified site; R55 Syncope and collapse; R53.1 Weakness; Z88.2 Allergy status to sulfonamides; Z88.8 Allergy status to other drugs, medicaments and biological substances; Z90.49 Acquired absence of other specified parts of digestive tract; Z20.828 Contact with and (suspected) exposure to other viral communicable diseases
CPT/HCPCS: 36415; 70450; 71045; 72170; 80048; 80053; 81003; 82550; 83605; 83735; 83880; 84443; 84484; 85025; 87635; 90376; 90675; 93005; 93306; 94640; 96374; J2270; U0003

== ENCOUNTER 2020-12-29 18:55 | Emergency (ER) | payer MEDICARE ==
[2020-12-29 19:46] LABS: #Basophils 0.1 thou/uL (0.0-0.2); #Eosinphils 1.2 thou/uL (0.0-0.7); #Lymphocytes 1.9 thou/uL (1.20-3.40); #Monocytes 1.2 thou/uL (0.11-0.59); #Neutrophils 5.9 thou/uL (1.40-6.50); %Basophils 0.7 % (0.0-1.0); %Eosinophils 11.2 % (0.0-10.0); %Lymphocytes 18.4 % (21.0-51.0); %Monocytes 11.9 % (0.0-10.0); %Neutrophils 57.7 % (42.0-75.0); Hemoglobin 12.2 g/dL (12.0-16.0); Mean Corpuscular HGB CONC 34.4 g/dL (32.0-36.0); Mean Corpuscular Volume 89.9 fL (78.0-98.0); Mean Platelet Volume 6.5 fL (7.4-10.4); Platelet Count 367 thou/uL (130-400); RBC Distribution Width 12.4 % (11.5-14.5); Red Blood Cell (RBC) Count 3.93 mill/uL (4.20-5.40); White Blood Cell (WBC) Count 10.3 thou/uL (4.8-10.8)
[2020-12-29 20:09] LABS: ALT (SGPT) 8 U/L (8-55); AST (SGOT) 13 U/L (5-34); Albumin 3.9 g/dL (3.4-4.8); Alkaline Phosphatase 79 U/L (40-110); Anion Gap 13 mmol/L (10-20); BUN (Urea Nitrogen) 14 mg/dL (9.8-20.1); Bilirubin, Total 0.3 mg/dL (0.2-1.2); Calc. Creatinine Clearance 0 mL/min (70-130); Calcium 8.8 mg/dL (7.8-10.44); Carbon Dioxide 25 mmol/L (23-31); Chloride 105 mmol/L (98-107); Glucose 82 mg/dL (83-110); Potassium 3.9 mmol/L (3.5-5.1); Protein, Total 6.9 g/dL (5.8-8.1); Sodium 139 mmol/L (136-145)
== END 2020-12-29 21:46 | disposition home or self-care (01) ==
LOC: ERS 18:55
DX: R60.0 Localized edema (principal); J44.9 Chronic obstructive pulmonary disease, unspecified; Z79.899 Other long term (current) drug therapy
CPT/HCPCS: 71045; 80053; 83880; 84484; 85025; 93005

== ENCOUNTER 2021-02-03 20:27 | Emergency (ER) | payer MEDICARE | END 2021-02-03 22:06 | disposition home or self-care (01) | LOC: ERS 20:27 | DX: S60.427A Blister (nonthermal) of left little finger, initial encounter (principal); S60.521A Blister (nonthermal) of right hand, initial encounter; R21 Rash and other nonspecific skin eruption; Z79.899 Other long term (current) drug therapy; J44.9 Chronic obstructive pulmonary disease, unspecified | CPT/HCPCS: 99282 ==

== ENCOUNTER 2021-02-13 18:42 | Inpatient (IN) | payer MEDICARE ==
[2021-02-13 19:08] LABS: #Eosinphils 0.1 thou/uL (0.0-0.7); #Lymphocytes 0.9 thou/uL (1.20-3.40); #Monocytes 0.2 thou/uL (0.11-0.59); #Neutrophils 8.3 thou/uL (1.40-6.50); %Basophils 0.2 % (0.0-1.0); %Eosinophils 0.8 % (0.0-10.0); %Lymphocytes 9.8 % (21.0-51.0); %Monocytes 2.3 % (0.0-10.0); %Neutrophils 86.9 % (42.0-75.0); Hemoglobin 10.6 g/dL (12.0-16.0); Mean Corpuscular HGB CONC 32.9 g/dL (32.0-36.0); Mean Corpuscular Hemoglobin 29.8 pg (27.0-31.0); Mean Corpuscular Volume 90.5 fL (78.0-98.0); Mean Platelet Volume 6.7 fL (7.4-10.4); Platelet Count 395 thou/uL (130-400); RBC Distribution Width 12.7 % (11.5-14.5); Red Blood Cell (RBC) Count 3.57 mill/uL (4.20-5.40); White Blood Cell (WBC) Count 9.6 thou/uL (4.8-10.8)
[2021-02-13 19:26] LABS: ALT (SGPT) 8 U/L (8-55); AST (SGOT) 13 U/L (5-34); Albumin 3.6 g/dL (3.4-4.8); Alkaline Phosphatase 69 U/L (40-110); Anion Gap 12 mmol/L (10-20); BUN (Urea Nitrogen) 20 mg/dL (9.8-20.1); Bilirubin, Total 0.2 mg/dL (0.2-1.2); Calc. Creatinine Clearance 0 mL/min (70-130); Calcium 8.6 mg/dL (7.8-10.44); Carbon Dioxide 23 mmol/L (23-31); Chloride 107 mmol/L (98-107); Globulin 3.2 g/dL (2.4-3.5); Glucose 123 mg/dL (83-110); Lipase 57 U/L (8-78); Magnesium 2.1 mg/dL (1.6-2.6); Potassium 4.3 mmol/L (3.5-5.1); Protein, Total 6.8 g/dL (5.8-8.1); Sodium 138 mmol/L (136-145)
[2021-02-13 19:31] LABS: INR-International Normal Ratio 1.1; PTT 26.9 sec (22.9-36.1)
[2021-02-13] MEDS ORDERED: Aspirin 325 MG TAB ONE (20:01)
[2021-02-13 20:25] LABS: Bilirubin Negative (Negative); Blood, Urine Negative (Negative); Clarity Clear (Clear); Glucose, Urine (Dipstick) Normal (Negative); Ketone, Urine Negative (Negative); Leukocyte Negative Leu/uL (Negative); Nitrite Negative (Negative); Protein, Urine (Dipstick) Negative (Neg-Trace); Specific Gravity, Urine 1.033 (1.002-1.036); Urobilinogen Normal mg/dL (Less than 2)
[2021-02-14] MEDS ORDERED: Ondansetron ODT 4 MG TAB PO PRN (01:44)
[2021-02-14] MEDS ORDERED: Ondansetron PF 4 MG/2 ML Vial IVP PRN (01:44)
[2021-02-14] MEDS ORDERED: Acetaminophen 325 MG TAB PO PRN (01:44)
[2021-02-14] MEDS ORDERED: hydrALAZINE 20 MG/ML VIAL SLOW IVP PRN (01:49)
[2021-02-14 05:32] LABS: #Basophils 0.1 thou/uL (0.0-0.2); #Eosinphils 0.3 thou/uL (0.0-0.7); #Lymphocytes 1.7 thou/uL (1.20-3.40); #Monocytes 1.2 thou/uL (0.11-0.59); #Neutrophils 5.1 thou/uL (1.40-6.50); %Basophils 1.1 % (0.0-1.0); %Eosinophils 3.7 % (0.0-10.0); %Lymphocytes 19.9 % (21.0-51.0); %Monocytes 13.8 % (0.0-10.0); %Neutrophils 61.5 % (42.0-75.0); Hemoglobin 10.2 g/dL (12.0-16.0); Mean Corpuscular HGB CONC 32.8 g/dL (32.0-36.0); Mean Corpuscular Hemoglobin 29.6 pg (27.0-31.0); Mean Corpuscular Volume 90.1 fL (78.0-98.0); Mean Platelet Volume 6.6 fL (7.4-10.4); Platelet Count 384 thou/uL (130-400); RBC Distribution Width 12.7 % (11.5-14.5); Red Blood Cell (RBC) Count 3.45 mill/uL (4.20-5.40); White Blood Cell (WBC) Count 8.3 thou/uL (4.8-10.8)
[2021-02-14 05:52] LABS: Phosphorus 3.4 mg/dL (2.3-4.7)
[2021-02-14 05:55] LABS: Anion Gap 11 mmol/L (10-20); BUN (Urea Nitrogen) 19 mg/dL (9.8-20.1); Calc. Creatinine Clearance 0 mL/min (70-130); Calcium 8.2 mg/dL (7.8-10.44); Carbon Dioxide 23 mmol/L (23-31); Cardiac Risk 3.2 (Less than 4.5); Chloride 109 mmol/L (98-107); Cholesterol 155 mg/dl (< 200 Desired); Glucose 105 mg/dL (83-110); HDL Cholesterol 48 mg/dL (>60 Neg Risk); LDL Cholesterol, Calculated 93 mg/dL; Magnesium 2.2 mg/dL (1.6-2.6); Potassium 3.7 mmol/L (3.5-5.1); Sodium 139 mmol/L (136-145); Triglycerides 68 mg/dL (Less than 150)
[2021-02-14] MEDS ORDERED: Enoxaparin Sodium 40 MG/0.4 ML SYRINGE ONE (11:23)
[2021-02-14] MEDS: Enoxaparin Sodium 40 MG/0.4 ML SYRINGE SC SCH (11:23)
[2021-02-14] MEDS ORDERED: traMADol HCl 50 MG TAB PO PRN (15:16)
[2021-02-14 19:46] VITALS: BMI 22.1
[2021-02-14] MEDS: Gabapentin 300 MG CAP PO SCH (21:24)
[2021-02-15 06:14] LABS: Thyroid Stimulating Hormone 1.7843 uIU/mL (0.35-4.94)
[2021-02-15] MEDS: Gabapentin 300 MG CAP PO SCH ×2 (10:20→20:59)
[2021-02-15] MEDS: Enoxaparin Sodium 40 MG/0.4 ML SYRINGE SC SCH (10:22)
[2021-02-15] MEDS: predniSONE 20 MG TAB PO SCH (12:38)
[2021-02-15 16:57] LABS: Bacteria/HPF None Seen HPF (None Seen); Bilirubin Negative (Negative); Blood, Urine Negative (Negative); Clarity Clear (Clear); Glucose, Urine (Dipstick) Normal (Negative); Ketone, Urine Negative (Negative); Leukocyte 25 Leu/uL (Negative); Nitrite Negative (Negative); Protein, Urine (Dipstick) Negative (Neg-Trace); RBC/HPF 0-3 HPF (0-3); Squamous Epithelial 0-3 HPF (0-3); Urobilinogen Normal mg/dL (Less than 2); WBC/HPF 0-3 HPF (0-3); pH, Urine 6.5 (5.0-9.0)
[2021-02-15 17:03] LABS: Urine Culture Reflex Yes Yes
[2021-02-15] MEDS: Atorvastatin Calcium 40 MG TAB PO SCH (20:59)
[2021-02-15] MEDS: Acyclovir 400 mg Tablet PO SCH (20:59)
[2021-02-15] MEDS: Betamethasone 0.1% Cream 45 GM TUBE TOP SCH (21:00)
[2021-02-15] MEDS: Fluorometholone 0.1% Ophth Soln 5 ml Bottle EA EYE SCH (21:00)
[2021-02-16 07:06] LABS: Anion Gap 11 mmol/L (10-20); BUN (Urea Nitrogen) 21 mg/dL (9.8-20.1); Calc. Creatinine Clearance 46 mL/min (70-130); Calcium 7.9 mg/dL (7.8-10.44); Carbon Dioxide 23 mmol/L (23-31); Chloride 107 mmol/L (98-107); Glucose 125 mg/dL (83-110); Magnesium 2.1 mg/dL (1.6-2.6); Potassium 3.5 mmol/L (3.5-5.1); Sodium 137 mmol/L (136-145)
[2021-02-16] MEDS: Aspirin Chewable 81 MG TAB PO SCH (10:02)
[2021-02-16] MEDS: Gabapentin 300 MG CAP PO SCH ×2 (10:03→20:36)
[2021-02-16] MEDS: Acyclovir 400 mg Tablet PO SCH ×3 (10:04→20:37)
[2021-02-16] MEDS: Enoxaparin Sodium 40 MG/0.4 ML SYRINGE SC SCH (10:04)
[2021-02-16] MEDS: Cholecalciferol 1,000 UNITS (25 MCG) TAB PO SCH (10:04)
[2021-02-16] MEDS: Betamethasone 0.1% Cream 45 GM TUBE TOP SCH ×2 (10:25→21:07)
[2021-02-16] MEDS: predniSONE 20 MG TAB PO SCH (14:56)
[2021-02-16] MEDS ORDERED: Potassium Chloride 20 MEQ TAB PO SCH (16:15)
[2021-02-16] MEDS ORDERED: Dextrose 50% Abboject 50 ML SYRINGE SLOW IVP PRN (16:34)
[2021-02-16] MEDS ORDERED: HumaLOG 300 UNITS/3 ML VIAL SC PRN (16:34)
[2021-02-16] MEDS ORDERED: Dextrose 5% in Water 1,000 ML IV PRN (16:34)
[2021-02-16] MEDS: Atorvastatin Calcium 40 MG TAB PO SCH (20:37)
[2021-02-16] MEDS: Fluorometholone 0.1% Ophth Soln 5 ml Bottle EA EYE SCH (20:38)
[2021-02-17 05:22] LABS: Hemoglobin A1c 5.1 % (4.0-6.0)
[2021-02-17 05:40] LABS: Anion Gap 9 mmol/L (10-20); BUN (Urea Nitrogen) 21 mg/dL (9.8-20.1); Calc. Creatinine Clearance 48 mL/min (70-130); Calcium 7.9 mg/dL (7.8-10.44); Carbon Dioxide 23 mmol/L (23-31); Chloride 110 mmol/L (98-107); Glucose 122 mg/dL (83-110); Iron 28 ug/dL (50-170); Iron Binding Capacity, Total 190 mcg/dL (265-497); Potassium 4.4 mmol/L (3.5-5.1); Sodium 138 mmol/L (136-145)
[2021-02-17] MEDS: Betamethasone 0.1% Cream 45 GM TUBE TOP SCH ×2 (08:57→20:29)
[2021-02-17] MEDS: Cholecalciferol 1,000 UNITS (25 MCG) TAB PO SCH (08:58)
[2021-02-17] MEDS: Aspirin Chewable 81 MG TAB PO SCH (08:58)
[2021-02-17] MEDS: Gabapentin 300 MG CAP PO SCH ×2 (08:58→20:17)
[2021-02-17] MEDS: Enoxaparin Sodium 40 MG/0.4 ML SYRINGE SC SCH (08:59)
[2021-02-17] MEDS: Acyclovir 400 mg Tablet PO SCH ×3 (10:21→20:17)
[2021-02-17] MEDS: predniSONE 20 MG TAB PO SCH (14:03)
[2021-02-17] MEDS: Fluorometholone 0.1% Ophth Soln 5 ml Bottle EA EYE SCH (20:16)
[2021-02-17] MEDS: Atorvastatin Calcium 40 MG TAB PO SCH (20:17)
[2021-02-18 05:37] LABS: #Eosinphils 0.2 thou/uL (0.0-0.7); #Lymphocytes 1.6 thou/uL (1.20-3.40); #Neutrophils 7.2 thou/uL (1.40-6.50); %Basophils 0.4 % (0.0-1.0); %Eosinophils 1.7 % (0.0-10.0); %Lymphocytes 15.8 % (21.0-51.0); %Monocytes 10.3 % (0.0-10.0); %Neutrophils 71.8 % (42.0-75.0); Hemoglobin 10.6 g/dL (12.0-16.0); Mean Corpuscular HGB CONC 32.5 g/dL (32.0-36.0); Mean Corpuscular Hemoglobin 29.2 pg (27.0-31.0); Mean Corpuscular Volume 89.9 fL (78.0-98.0); Mean Platelet Volume 6.7 fL (7.4-10.4); Platelet Count 402 thou/uL (130-400); RBC Distribution Width 12.7 % (11.5-14.5); Red Blood Cell (RBC) Count 3.61 mill/uL (4.20-5.40)
[2021-02-18 05:56] LABS: Anion Gap 9 mmol/L (10-20); BUN (Urea Nitrogen) 20 mg/dL (9.8-20.1); Calc. Creatinine Clearance 49 mL/min (70-130); Carbon Dioxide 24 mmol/L (23-31); Chloride 109 mmol/L (98-107); Glucose 118 mg/dL (83-110); Sodium 138 mmol/L (136-145)
[2021-02-18] MEDS: Betamethasone 0.1% Cream 45 GM TUBE TOP SCH ×2 (09:20→20:55)
[2021-02-18] MEDS: Acyclovir 400 mg Tablet PO SCH ×3 (09:21→20:54)
[2021-02-18] MEDS: Aspirin Chewable 81 MG TAB PO SCH (09:21)
[2021-02-18] MEDS: Cholecalciferol 1,000 UNITS (25 MCG) TAB PO SCH (09:21)
[2021-02-18] MEDS: Gabapentin 300 MG CAP PO SCH ×2 (09:21→20:54)
[2021-02-18] MEDS: Enoxaparin Sodium 40 MG/0.4 ML SYRINGE SC SCH (09:22)
[2021-02-18] MEDS: predniSONE 20 MG TAB PO SCH (14:26)
[2021-02-18] MEDS: Atorvastatin Calcium 40 MG TAB PO SCH (20:54)
[2021-02-18] MEDS: Fluorometholone 0.1% Ophth Soln 5 ml Bottle EA EYE SCH (20:55)
[2021-02-19] MEDS: Acyclovir 400 mg Tablet PO SCH ×3 (09:15→20:34)
[2021-02-19] MEDS: Gabapentin 300 MG CAP PO SCH ×2 (09:15→20:33)
[2021-02-19] MEDS: Aspirin Chewable 81 MG TAB PO SCH (09:15)
[2021-02-19] MEDS: Cholecalciferol 1,000 UNITS (25 MCG) TAB PO SCH (09:15)
[2021-02-19] MEDS: Betamethasone 0.1% Cream 45 GM TUBE TOP SCH ×2 (09:16→20:38)
[2021-02-19] MEDS: Enoxaparin Sodium 40 MG/0.4 ML SYRINGE SC SCH (09:16)
[2021-02-19] MEDS: predniSONE 20 MG TAB PO SCH (13:20)
[2021-02-19] MEDS: Fluorometholone 0.1% Ophth Soln 5 ml Bottle EA EYE SCH (20:32)
[2021-02-19] MEDS: Atorvastatin Calcium 40 MG TAB PO SCH (20:34)
[2021-02-20] MEDS: Enoxaparin Sodium 40 MG/0.4 ML SYRINGE SC SCH (08:55)
[2021-02-20] MEDS: Gabapentin 300 MG CAP PO SCH (08:55)
[2021-02-20] MEDS: Cholecalciferol 1,000 UNITS (25 MCG) TAB PO SCH (08:55)
[2021-02-20] MEDS: Acyclovir 400 mg Tablet PO SCH ×2 (08:56→14:03)
[2021-02-20] MEDS: Betamethasone 0.1% Cream 45 GM TUBE TOP SCH ×2 (08:56→08:57)
[2021-02-20] MEDS: Aspirin Chewable 81 MG TAB PO SCH (08:56)
[2021-02-20 11:34] VITALS: BP 147/65; TEMP 98.2
[2021-02-20] MEDS: predniSONE 20 MG TAB PO SCH (12:11)
[2021-02-21] MEDS ORDERED: predniSONE 20 MG TAB PO SCH (13:00)
== END 2021-02-20 14:16 | DRG 92 ==
LOC: ERS 18:42 → ERHOLD 21:14 → 2SE 02-14 17:22 → OBSVTOIN 02-16 13:22
PROVIDERS: ADMIT Student in an Organized Health Care Education/Training Program; ATTEND Internal Medicine
DX: R20.2 Paresthesia of skin (principal); G45.9 Transient cerebral ischemic attack, unspecified; N17.9 Acute kidney failure, unspecified; I47.2 Ventricular tachycardia; J44.1 Chronic obstructive pulmonary disease with (acute) exacerbation; G93.49 Other encephalopathy; R29.898 Other symptoms and signs involving the musculoskeletal system; Z20.822 Contact with and (suspected) exposure to COVID-19; R21 Rash and other nonspecific skin eruption; D64.9 Anemia, unspecified; E86.0 Dehydration; F03.90 Unspecified dementia, unspecified severity, without behavioral disturbance, psychotic disturbance, mood disturbance, and anxiety; H91.90 Unspecified hearing loss, unspecified ear; M54.12 Radiculopathy, cervical region; Z88.1 Allergy status to other antibiotic agents; Z88.2 Allergy status to sulfonamides; Z79.899 Other long term (current) drug therapy; Z79.51 Long term (current) use of inhaled steroids; Z90.49 Acquired absence of other specified parts of digestive tract; Z90.89 Acquired absence of other organs
CPT/HCPCS: 36415; 36416; 70450; 70496; 70498; 70551; 71045; 72141; 80048; 80053; 80061; 81001; 81003; 82306; 82607; 82728; 82746; 83036; 83540; 83550; 83690; 83735; 84100; 84443; 84484; 85025; 85610; 85652; 85730; 86140; 87086; 93005; 93306; 94760; 95712; 95819; 95957; 96372; G0378; J1650; J7512; Q9967

== ENCOUNTER 2021-05-10 10:26 | Outpatient (CLI) | payer MEDICARE ==
[2021-05-10 11:52] LABS: #Basophils 0.1 10x3/uL (0.0-0.2); #Eosinphils 0.9 10x3/uL (0.0-0.5); #Neutrophils 3.5 10x3/uL (1.5-8.4); %Basophils 1.5 % (0.0-2.0); %Eosinophils 13.7 % (0.0-6.0); %Lymphocytes 18.3 % (18.0-47.0); %Monocytes 14.8 % (0.0-10.0); %Neutrophils 50.5 % (40.0-75.0); Hemoglobin 11.1 g/dL (12.0-15.5); Mean Corpuscular HGB CONC 32.3 g/dL (32.0-36.0); Mean Corpuscular Hemoglobin 28.2 pg (27.0-33.0); Mean Corpuscular Volume 87.5 fl (81.6-98.3); Mean Platelet Volume 8.6 fl (7.4-10.4); Platelet Count 393 10x3/uL (150-450); RBC Distribution Width 14.7 % (11.5-14.5); Red Blood Cell (RBC) Count 3.93 10x6/uL (3.90-5.03); White Blood Cell (WBC) Count 6.9 10x3/uL (3.5-10.5)
[2021-05-10 12:20] LABS: Anion Gap 15 mmol/L (10-20); BUN (Urea Nitrogen) 9 mg/dL (9.8-20.1); Calc. Creatinine Clearance 0 mL/min (70-130); Calcium 8.8 mg/dL (7.8-10.44); Carbon Dioxide 22 mmol/L (23-31); Chloride 108 mmol/L (98-107); Glucose 96 mg/dL (83-110); Potassium 3.8 mmol/L (3.5-5.1); Sodium 141 mmol/L (136-145)
[2021-05-11 01:38] LABS: SARS-CoV-2 PCR by NAA Not Detected (NotDetected)
== END 2021-05-10 10:27 | disposition home or self-care (01) ==
LOC: LABBT 10:26
PROVIDERS: ATTEND Specialist
DX: Z01.818 Encounter for other preprocedural examination (principal); K40.90 Unilateral inguinal hernia, without obstruction or gangrene, not specified as recurrent; Z20.822 Contact with and (suspected) exposure to COVID-19
CPT/HCPCS: 80048; 85025; 93005; U0003; U0005; 93010

== ENCOUNTER 2021-05-15 06:12 | Day surgery (SDC) | payer MEDICARE ==
[2021-05-14 13:12] VITALS: BMI 19.6
[2021-05-15] MEDS ORDERED: Ketorolac Tromethamine 30 MG/ML VIAL ONE (06:40)
[2021-05-15] MEDS ORDERED: Acetaminophen 500 MG TAB ONE (06:40)
[2021-05-15] MEDS ORDERED: Hydrocortisone Sod Succ/PF 100 mg/2 ml Vial IVP SCH (06:45)
[2021-05-15] MEDS ORDERED: Lidocaine 1% w/Epinephrine 1:100K 20 ML VIAL ONE (06:51)
[2021-05-15] MEDS ORDERED: Bupivacaine 0.25% HCL 30 ML VIAL ONE (06:51)
[2021-05-15] MEDS ORDERED: Fentanyl 100 MCG/2 ML VIAL ONE ×3 (07:19→09:53)
[2021-05-15] MEDS ORDERED: Clindamycin/D5W 900 mg/50 ml Premix Bag ONE (07:25)
[2021-05-15] MEDS ORDERED: Glycopyrrolate 0.2 MG/ML 5 ML SYRINGE ONE (08:09)
[2021-05-15] MEDS ORDERED: PHENYLEPHRINE-NS 100 MCG/ML 10 ML SYRINGE ONE (08:09)
[2021-05-15] MEDS ORDERED: PROPOFOL 200 MG/20 ML VIAL ONE (08:09)
[2021-05-15] MEDS ORDERED: Rocuronium Bromide 10 MG/ML (10ML VIAL) ONE (08:09)
[2021-05-15] MEDS ORDERED: Lidocaine 1% PF 5 ML VIAL ONE (08:09)
[2021-05-15] MEDS ORDERED: Dexamethasone 20 MG/5 ML VIAL ONE (08:09)
[2021-05-15] MEDS ORDERED: Ondansetron PF 4 MG/2 ML Vial ONE (08:09)
[2021-05-15] MEDS ORDERED: SUGAMMADEX SODIUM 200 MG/2 ML VIAL ONE (09:43)
[2021-05-15] MEDS ORDERED: HYDROcodone/Acetaminophen 5/325 mg Tablet ONE (12:24)
== END 2021-05-15 15:00 | disposition home or self-care (01) ==
LOC: SDC 06:12
PROVIDERS: ATTEND Specialist
PROC: 0YU64JZ Supplement Left Inguinal Region with Synthetic Substitute, Percutaneous Endoscopic Approach (ICD-10-PCS; principal; 2021-05-15)
DX: K40.90 Unilateral inguinal hernia, without obstruction or gangrene, not specified as recurrent (principal); J42 Unspecified chronic bronchitis; Z79.2 Long term (current) use of antibiotics; Z79.52 Long term (current) use of systemic steroids; Z79.82 Long term (current) use of aspirin; Z79.899 Other long term (current) drug therapy; Z88.1 Allergy status to other antibiotic agents; Z88.2 Allergy status to sulfonamides; Z91.040 Latex allergy status; Z91.041 Radiographic dye allergy status; Z91.048 Other nonmedicinal substance allergy status
CPT/HCPCS: C1781; J1100; J1885; J2405; J2704; J3010; J3490; S0020

== ENCOUNTER 2021-07-17 07:35 | Outpatient (CLI) | payer MEDICARE | END 2021-07-17 07:36 | disposition home or self-care (01) | LOC: BICRAD 07:35 | PROVIDERS: ATTEND Family Medicine | DX: M54.6 Pain in thoracic spine (principal) | CPT/HCPCS: 72072 ==

== ENCOUNTER 2021-10-21 16:16 | Inpatient (IN) | payer MEDICARE ==
[2021-10-21] MEDS ORDERED: Acetaminophen 500 MG TAB ONE (17:06)
[2021-10-21 17:22] LABS: #Basophils 0.1 thou/uL (0.0-0.2); #Eosinphils 0.6 thou/uL (0.0-0.7); #Lymphocytes 1.3 thou/uL (1.20-3.40); #Monocytes 0.8 thou/uL (0.11-0.59); #Neutrophils 4.4 thou/uL (1.40-6.50); %Basophils 1.4 % (0.0-1.0); %Lymphocytes 17.7 % (21.0-51.0); %Monocytes 10.3 % (0.0-10.0); %Neutrophils 61.7 % (42.0-75.0); Hemoglobin 11.4 g/dL (12.0-16.0); Mean Corpuscular HGB CONC 32.3 g/dL (32.0-36.0); Mean Corpuscular Hemoglobin 30.2 pg (27.0-31.0); Mean Corpuscular Volume 93.6 fL (78.0-98.0); Mean Platelet Volume 7.1 fL (7.4-10.4); Platelet Count 310 thou/uL (130-400); RBC Distribution Width 12.6 % (11.5-14.5); Red Blood Cell (RBC) Count 3.76 mill/uL (4.20-5.40); White Blood Cell (WBC) Count 7.2 thou/uL (4.8-10.8)
[2021-10-21 17:39] LABS: ALT (SGPT) 7 U/L (8-55); AST (SGOT) 11 U/L (5-34); Albumin 3.6 g/dL (3.4-4.8); Alkaline Phosphatase 72 U/L (40-110); Anion Gap 15 mmol/L (10-20); BUN (Urea Nitrogen) 19 mg/dL (9.8-20.1); Bilirubin, Total 0.5 mg/dL (0.2-1.2); Calc. Creatinine Clearance 0 mL/min (70-130); Calcium 8.5 mg/dL (7.8-10.44); Carbon Dioxide 20 mmol/L (23-31); Chloride 109 mmol/L (98-107); Globulin 2.6 g/dL (2.4-3.5); Glucose 95 mg/dL (83-110); Potassium 4.5 mmol/L (3.5-5.1); Protein, Total 6.2 g/dL (5.8-8.1); Sodium 139 mmol/L (136-145)
[2021-10-21 18:23] LABS: Bilirubin Negative (Negative); Blood, Urine Negative (Negative); Clarity Clear (Clear); Glucose, Urine (Dipstick) Normal (Negative); Ketone, Urine Negative (Negative); Leukocyte Negative Leu/uL (Negative); Nitrite Negative (Negative); Protein, Urine (Dipstick) 10 mg/dL (Neg-Trace); Urobilinogen Normal mg/dL (Less than 2)
[2021-10-21 20:47] LABS: Troponin I Less than 0.010 ng/mL (< 0.028)
[2021-10-21] MEDS ORDERED: Acetaminophen 325 MG TAB PO PRN (21:45)
[2021-10-21] MEDS ORDERED: Ondansetron ODT 4 MG TAB SL PRN (21:45)
[2021-10-21] MEDS ORDERED: Ondansetron PF 4 MG/2 ML Vial IVP PRN (21:45)
[2021-10-21 22:30] VITALS: BMI 17.2
[2021-10-21 23:49] LABS: Troponin I Less than 0.010 ng/mL (< 0.028)
[2021-10-22] MEDS ORDERED: Acetaminophen 650 MG Suppository PR PRN (00:14)
[2021-10-22 05:29] LABS: #Basophils 0.1 thou/uL (0.0-0.2); #Eosinphils 0.8 thou/uL (0.0-0.7); #Lymphocytes 1.3 thou/uL (1.20-3.40); #Monocytes 0.7 thou/uL (0.11-0.59); #Neutrophils 2.8 thou/uL (1.40-6.50); %Basophils 1.6 % (0.0-1.0); %Eosinophils 13.9 % (0.0-10.0); %Lymphocytes 23.3 % (21.0-51.0); %Monocytes 11.8 % (0.0-10.0); %Neutrophils 49.4 % (42.0-75.0); Hemoglobin 10.6 g/dL (12.0-16.0); Mean Corpuscular HGB CONC 33.1 g/dL (32.0-36.0); Mean Corpuscular Hemoglobin 30.5 pg (27.0-31.0); Mean Corpuscular Volume 92.3 fL (78.0-98.0); Mean Platelet Volume 7.1 fL (7.4-10.4); Platelet Count 299 thou/uL (130-400); RBC Distribution Width 12.4 % (11.5-14.5); Red Blood Cell (RBC) Count 3.46 mill/uL (4.20-5.40); White Blood Cell (WBC) Count 5.6 thou/uL (4.8-10.8)
[2021-10-22 05:49] LABS: Anion Gap 11 mmol/L (10-20); BUN (Urea Nitrogen) 13 mg/dL (9.8-20.1); Calc. Creatinine Clearance 40 mL/min (70-130); Calcium 8.4 mg/dL (7.8-10.44); Carbon Dioxide 23 mmol/L (23-31); Cardiac Risk 3.6 (Less than 4.5); Chloride 109 mmol/L (98-107); Cholesterol 167 mg/dl (< 200 Desired); Glucose 95 mg/dL (83-110); HDL Cholesterol 46 mg/dL (>60 Neg Risk); LDL Cholesterol, Calculated 107 mg/dL; Potassium 3.9 mmol/L (3.5-5.1); Sodium 139 mmol/L (136-145); Triglycerides 68 mg/dL (Less than 150)
[2021-10-22] MEDS: Enoxaparin Sodium 30 MG/0.3 ML SYRINGE SC SCH (10:00)
[2021-10-23] MEDS: Enoxaparin Sodium 30 MG/0.3 ML SYRINGE SC SCH (08:34)
[2021-10-23] MEDS ORDERED: Acetaminophen ER (8hr) 650 MG TAB PO PRN (17:31)
[2021-10-23] MEDS ORDERED: Aspirin Chewable 81 MG TAB PO SCH (18:15)
[2021-10-23] MEDS ORDERED: Clopidogrel Bisulfate 75 MG TAB PO SCH (18:15)
[2021-10-23] MEDS: Mometasone 200 MCG/Formoterol 5 MCG 120 PUFF INHALER INH SCH (21:25)
[2021-10-24] MEDS: Mometasone 200 MCG/Formoterol 5 MCG 120 PUFF INHALER INH SCH ×2 (07:48→18:36)
[2021-10-24] MEDS ORDERED: Aspirin Chewable 81 MG TAB PO SCH (09:00)
[2021-10-24] MEDS: Doxycycline 100 MG CAP PO SCH (09:32)
[2021-10-24] MEDS: Enoxaparin Sodium 30 MG/0.3 ML SYRINGE SC SCH (09:32)
[2021-10-24] MEDS: Clopidogrel Bisulfate 75 MG TAB PO SCH (09:33)
[2021-10-24] MEDS: Aspirin Chewable 81 MG TAB PO SCH (09:33)
[2021-10-24] MEDS: Fluorometholone 0.1% Ophth Soln 5 ml Bottle EA EYE SCH (11:13)
[2021-10-25] MEDS: Mometasone 200 MCG/Formoterol 5 MCG 120 PUFF INHALER INH SCH ×2 (08:04→19:25)
[2021-10-25] MEDS: Aspirin Chewable 81 MG TAB PO SCH (08:55)
[2021-10-25] MEDS: Clopidogrel Bisulfate 75 MG TAB PO SCH (08:55)
[2021-10-25] MEDS: Enoxaparin Sodium 30 MG/0.3 ML SYRINGE SC SCH (08:57)
[2021-10-25] MEDS: Doxycycline 100 MG CAP PO SCH (09:29)
[2021-10-25] MEDS: Fluorometholone 0.1% Ophth Soln 5 ml Bottle EA EYE SCH (10:00)
[2021-10-25] MEDS: Atorvastatin Calcium 20 MG TAB PO SCH (20:59)
[2021-10-26] MEDS: Mometasone 200 MCG/Formoterol 5 MCG 120 PUFF INHALER INH SCH ×2 (08:00→19:12)
[2021-10-26] MEDS: Fluorometholone 0.1% Ophth Soln 5 ml Bottle EA EYE SCH (09:00)
[2021-10-26] MEDS: Clopidogrel Bisulfate 75 MG TAB PO SCH (09:02)
[2021-10-26] MEDS: Aspirin Chewable 81 MG TAB PO SCH (09:02)
[2021-10-26] MEDS: Doxycycline 100 MG CAP PO SCH (09:02)
[2021-10-26] MEDS: Enoxaparin Sodium 30 MG/0.3 ML SYRINGE SC SCH (09:02)
[2021-10-26] MEDS: Multivit, Therapeutic 1 TAB PO SCH (09:02)
[2021-10-26] MEDS: Cholecalciferol 1,000 UNITS (25 MCG) TAB PO SCH (09:02)
[2021-10-26] MEDS: Atorvastatin Calcium 20 MG TAB PO SCH (21:37)
[2021-10-27] MEDS: Mometasone 200 MCG/Formoterol 5 MCG 120 PUFF INHALER INH SCH ×2 (07:34→18:42)
[2021-10-27] MEDS: Clopidogrel Bisulfate 75 MG TAB PO SCH (08:45)
[2021-10-27] MEDS: Aspirin Chewable 81 MG TAB PO SCH (08:45)
[2021-10-27] MEDS: Doxycycline 100 MG CAP PO SCH (08:45)
[2021-10-27] MEDS: Cholecalciferol 1,000 UNITS (25 MCG) TAB PO SCH (08:45)
[2021-10-27] MEDS: Multivit, Therapeutic 1 TAB PO SCH (08:45)
[2021-10-27] MEDS: Fluorometholone 0.1% Ophth Soln 5 ml Bottle EA EYE SCH (08:46)
[2021-10-27] MEDS: Atorvastatin Calcium 20 MG TAB PO SCH (20:17)
[2021-10-28] MEDS: Mometasone 200 MCG/Formoterol 5 MCG 120 PUFF INHALER INH SCH ×2 (07:36→18:51)
[2021-10-28] MEDS: Aspirin Chewable 81 MG TAB PO SCH (08:01)
[2021-10-28] MEDS: Doxycycline 100 MG CAP PO SCH (08:01)
[2021-10-28] MEDS: Cholecalciferol 1,000 UNITS (25 MCG) TAB PO SCH (08:01)
[2021-10-28] MEDS: Clopidogrel Bisulfate 75 MG TAB PO SCH (08:01)
[2021-10-28] MEDS: Multivit, Therapeutic 1 TAB PO SCH (08:01)
[2021-10-28] MEDS: Fluorometholone 0.1% Ophth Soln 5 ml Bottle EA EYE SCH (09:40)
[2021-10-28] MEDS: Atorvastatin Calcium 20 MG TAB PO SCH (20:05)
[2021-10-28] MEDS ORDERED: Cholecalciferol 1,000 UNITS (25 MCG) TAB PO SCH (21:00)
[2021-10-29] MEDS: Mometasone 200 MCG/Formoterol 5 MCG 120 PUFF INHALER INH SCH (07:26)
[2021-10-29] MEDS ORDERED: Cholecalciferol 1,000 UNITS (25 MCG) TAB PO SCH (09:00)
[2021-10-29] MEDS: Clopidogrel Bisulfate 75 MG TAB PO SCH (09:11)
[2021-10-29] MEDS: Fluorometholone 0.1% Ophth Soln 5 ml Bottle EA EYE SCH (09:11)
[2021-10-29] MEDS: Aspirin Chewable 81 MG TAB PO SCH (09:11)
[2021-10-29] MEDS: Doxycycline 100 MG CAP PO SCH (09:11)
[2021-10-29] MEDS: Multivit, Therapeutic 1 TAB PO SCH (09:11)
[2021-10-29 11:41] VITALS: BP 131/68; TEMP 97.7
== END 2021-10-29 14:27 | disposition home or self-care (01) | DRG 69 ==
LOC: ERS 16:16 → INTOOBSV 18:45 → ERHOLD 18:45 → NEURO 21:16 → OBSVTOIN 10-22 15:10
PROVIDERS: ADMIT Internal Medicine; ATTEND Internal Medicine
DX: G45.9 Transient cerebral ischemic attack, unspecified (principal); E43 Unspecified severe protein-calorie malnutrition; G93.49 Other encephalopathy; L12.0 Bullous pemphigoid; Z68.1 Body mass index [BMI] 19.9 or less, adult; J44.9 Chronic obstructive pulmonary disease, unspecified; R47.1 Dysarthria and anarthria; E78.5 Hyperlipidemia, unspecified; D53.9 Nutritional anemia, unspecified; E55.9 Vitamin D deficiency, unspecified; R53.81 Other malaise; I08.3 Combined rheumatic disorders of mitral, aortic and tricuspid valves; I51.89 Other ill-defined heart diseases; N18.2 Chronic kidney disease, stage 2 (mild); R13.10 Dysphagia, unspecified; M54.12 Radiculopathy, cervical region; Z79.891 Long term (current) use of opiate analgesic; Z79.899 Other long term (current) drug therapy; Z79.82 Long term (current) use of aspirin; Z79.02 Long term (current) use of antithrombotics/antiplatelets; Z88.1 Allergy status to other antibiotic agents; Z88.8 Allergy status to other drugs, medicaments and biological substances; Z91.041 Radiographic dye allergy status; Z88.2 Allergy status to sulfonamides; Z91.048 Other nonmedicinal substance allergy status; Z90.49 Acquired absence of other specified parts of digestive tract; Z90.89 Acquired absence of other organs; Z86.73 Personal history of transient ischemic attack (TIA), and cerebral infarction without residual deficits
CPT/HCPCS: 36415; 70450; 70551; 80048; 80053; 80061; 80306; 80307; 81003; 81015; 84443; 84484; 85025; 93005; 93306; 93880; 94640; 95712; 95819; 95957; 96372; G0378; J1650; J7620; U0003; U0005

== ENCOUNTER 2022-03-02 19:28 | Inpatient (IN) | payer MEDICARE ==
[2022-03-02 20:16] LABS: #Eosinphils 0.1 thou/uL (0.0-0.7); #Lymphocytes 0.7 thou/uL (1.20-3.40); #Monocytes 0.9 thou/uL (0.11-0.59); %Basophils 0.1 % (0.0-1.0); %Eosinophils 0.9 % (0.0-10.0); %Lymphocytes 5.6 % (21.0-51.0); %Monocytes 7.6 % (0.0-10.0); %Neutrophils 85.8 % (42.0-75.0); Hemoglobin 14.5 g/dL (12.0-16.0); Mean Corpuscular HGB CONC 35.8 g/dL (32.0-36.0); Mean Corpuscular Hemoglobin 32.7 pg (27.0-31.0); Mean Corpuscular Volume 91.4 fL (78.0-98.0); Mean Platelet Volume 6.4 fL (7.4-10.4); Platelet Count 179 thou/uL (130-400); RBC Distribution Width 14.4 % (11.5-14.5); Red Blood Cell (RBC) Count 4.42 mill/uL (4.20-5.40); White Blood Cell (WBC) Count 11.7 thou/uL (4.8-10.8)
[2022-03-02 20:38] LABS: ALT (SGPT) 36 U/L (8-55); AST (SGOT) 44 U/L (5-34); Albumin 3.5 g/dL (3.4-4.8); Alkaline Phosphatase 72 U/L (40-110); Anion Gap 14 mmol/L (10-20); BUN (Urea Nitrogen) 30 mg/dL (9.8-20.1); Bilirubin, Total 2.5 mg/dL (0.2-1.2); CK (CPK) 60 U/L (29-168); Calc. Creatinine Clearance 0 mL/min (70-130); Calcium 8.8 mg/dL (7.8-10.44); Carbon Dioxide 28 mmol/L (23-31); Chloride 97 mmol/L (98-107); Estimated GFR 48; Globulin 2.9 g/dL (2.4-3.5); Glucose 117 mg/dL (83-110); Protein, Total 6.4 g/dL (5.8-8.1); Sodium 136 mmol/L (136-145)
[2022-03-02] MEDS ORDERED: Potassium Chloride 20 MEQ TAB ONE (23:29)
[2022-03-02 23:42] LABS: Magnesium 2.1 mg/dL (1.6-2.6)
[2022-03-03 01:05] LABS: SARS-CoV-2 NAA Rapid Test Not Detected (NotDetected)
[2022-03-03] MEDS ORDERED: Sodium Chloride 0.9% 1,000 ML IV SCH ×2 (01:15→01:45)
[2022-03-03] MEDS ORDERED: Ondansetron PF 4 MG/2 ML Vial IVP PRN (01:15)
[2022-03-03] MEDS ORDERED: Ondansetron ODT 4 MG TAB SL PRN (01:15)
[2022-03-03] MEDS ORDERED: Bisacodyl 5 MG TAB PO PRN (01:31)
[2022-03-03] MEDS ORDERED: Acetaminophen 325 MG TAB PO PRN (01:31)
[2022-03-03] MEDS ORDERED: Senokot S 8.6-50 MG TAB PO PRN (01:31)
[2022-03-03 01:56] VITALS: BMI 17.2
[2022-03-03 05:07] LABS: #Eosinphils 0.3 thou/uL (0.0-0.7); #Lymphocytes 1.1 thou/uL (1.20-3.40); #Monocytes 0.8 thou/uL (0.11-0.59); #Neutrophils 6.6 thou/uL (1.40-6.50); %Basophils 0.3 % (0.0-1.0); %Eosinophils 3.5 % (0.0-10.0); %Lymphocytes 12.3 % (21.0-51.0); %Monocytes 9.1 % (0.0-10.0); %Neutrophils 74.8 % (42.0-75.0); Hemoglobin 11.6 g/dL (12.0-16.0); Mean Corpuscular HGB CONC 35.6 g/dL (32.0-36.0); Mean Corpuscular Hemoglobin 32.8 pg (27.0-31.0); Mean Corpuscular Volume 92.2 fL (78.0-98.0); Mean Platelet Volume 6.2 fL (7.4-10.4); Platelet Count 155 thou/uL (130-400); RBC Distribution Width 14.4 % (11.5-14.5); Red Blood Cell (RBC) Count 3.53 mill/uL (4.20-5.40); White Blood Cell (WBC) Count 8.8 thou/uL (4.8-10.8)
[2022-03-03 05:20] LABS: ALT (SGPT) 31 U/L (8-55); AST (SGOT) 36 U/L (5-34); Albumin 2.8 g/dL (3.4-4.8); Alkaline Phosphatase 59 U/L (40-110); Anion Gap 13 mmol/L (10-20); BUN (Urea Nitrogen) 27 mg/dL (9.8-20.1); Bilirubin, Total 1.8 mg/dL (0.2-1.2); Calc. Creatinine Clearance 29 mL/min (70-130); Calcium 7.8 mg/dL (7.8-10.44); Carbon Dioxide 23 mmol/L (23-31); Chloride 101 mmol/L (98-107); Estimated GFR 57; Globulin 2.2 g/dL (2.4-3.5); Glucose 102 mg/dL (83-110); Potassium 3.1 mmol/L (3.5-5.1); Sodium 134 mmol/L (136-145)
[2022-03-03] MEDS ORDERED: Non-Formulary Item 1 EACH (Fluticasone/Vilanterol [Breo Ellipta 200-25 Mcg Inh] 1 EACH Bl PO PRN (07:05)
[2022-03-03] MEDS ORDERED: Mometasone 200 MCG/Formoterol 5 MCG 120 PUFF INHALER INH PRN (07:17)
[2022-03-03] MEDS: Clopidogrel Bisulfate 75 MG TAB PO SCH (08:53)
[2022-03-03] MEDS: Aspirin Chewable 81 MG TAB PO SCH (08:58)
[2022-03-03] MEDS: Multivit, Therapeutic 1 TAB PO SCH (08:58)
[2022-03-03] MEDS: Cholecalciferol 1,000 UNITS (25 MCG) TAB PO SCH (08:59)
[2022-03-03] MEDS ORDERED: NIACINAMIDE 500 MG PO SCH (09:00)
[2022-03-03] MEDS: Doxycycline 100 MG CAP PO SCH (09:00)
[2022-03-03] MEDS ORDERED: Cholecalciferol 1,000 UNITS (25 MCG) TAB PO SCH (09:00)
[2022-03-03] MEDS ORDERED: Fluorometholone 0.1% Ophth Soln 5 ml Bottle EA EYE SCH (09:00)
[2022-03-03] MEDS: Enoxaparin Sodium 30 MG/0.3 ML SYRINGE SC SCH (09:00)
[2022-03-03] MEDS ORDERED: Sodium Chloride 0.9% 500 ML IV SCH (10:30)
[2022-03-03] MEDS: Fluorometholone 0.1% Ophth Soln 5 ml Bottle EA EYE SCH (11:57)
[2022-03-03 15:17] LABS: Hemoglobin 11.4 g/dL (12.0-16.0); Platelet Count 143 thou/uL (130-400)
[2022-03-03] MEDS ORDERED: Ondansetron ODT 4 MG TAB PO PRN (19:53)
[2022-03-03 20:12] LABS: Bilirubin Negative (Negative); Blood, Urine Negative (Negative); Clarity Clear (Clear); Glucose, Urine (Dipstick) Normal (Negative); Ketone, Urine Negative (Negative); Leukocyte Negative Leu/uL (Negative); Mucous/LPF Rare LPF (<2+); Nitrite Negative (Negative); Protein, Urine (Dipstick) 50 mg/dL (Neg-Trace); RBC/HPF 0-3 HPF (0-3); Specific Gravity, Urine 1.027 (1.002-1.036); Squamous Epithelial 0-3 HPF (0-3); Urobilinogen Normal mg/dL (Less than 2); WBC/HPF 0-3 HPF (0-3); pH, Urine 5.5 (5.0-9.0)
[2022-03-03 20:29] LABS: Bacteria/HPF Rare-Few HPF (None Seen)
[2022-03-03 20:30] LABS: Urine Culture Reflex No No
[2022-03-03] MEDS ORDERED: Atorvastatin Calcium 40 MG TAB PO SCH (21:00)
[2022-03-04 07:19] LABS: Hemoglobin 10.6 g/dL (12.0-16.0); Platelet Count 135 thou/uL (130-400)
[2022-03-04] MEDS: Doxycycline 100 MG CAP PO SCH (09:52)
[2022-03-04] MEDS: Enoxaparin Sodium 30 MG/0.3 ML SYRINGE SC SCH (09:52)
[2022-03-04] MEDS: Multivit, Therapeutic 1 TAB PO SCH (09:52)
[2022-03-04] MEDS: Clopidogrel Bisulfate 75 MG TAB PO SCH (09:52)
[2022-03-04] MEDS: Cholecalciferol 1,000 UNITS (25 MCG) TAB PO SCH (09:52)
[2022-03-04] MEDS: Fluorometholone 0.1% Ophth Soln 5 ml Bottle EA EYE SCH (09:53)
[2022-03-04] MEDS: Aspirin Chewable 81 MG TAB PO SCH (09:53)
[2022-03-04 11:51] LABS: Hemoglobin 11.6 g/dL (12.0-16.0); Platelet Count 143 thou/uL (130-400)
[2022-03-04 16:03] VITALS: BP 127/60; TEMP 100.3
== END 2022-03-04 19:15 | DRG 683 ==
LOC: ERS 19:28 → 2NO 23:03 → OBSVTOIN 03-03 14:45
PROVIDERS: ADMIT Internal Medicine; ATTEND Internal Medicine
DX: N17.9 Acute kidney failure, unspecified (principal); L12.0 Bullous pemphigoid; E44.0 Moderate protein-calorie malnutrition; Z68.1 Body mass index [BMI] 19.9 or less, adult; I95.1 Orthostatic hypotension; Z20.822 Contact with and (suspected) exposure to COVID-19; E87.6 Hypokalemia; E86.0 Dehydration; D64.9 Anemia, unspecified; R29.6 Repeated falls; Z88.1 Allergy status to other antibiotic agents; Z88.2 Allergy status to sulfonamides; Z91.041 Radiographic dye allergy status; Z91.040 Latex allergy status; Z91.048 Other nonmedicinal substance allergy status; Z86.73 Personal history of transient ischemic attack (TIA), and cerebral infarction without residual deficits; Z90.49 Acquired absence of other specified parts of digestive tract; Z90.09 Acquired absence of other part of head and neck
CPT/HCPCS: 36415; 70450; 72125; 72170; 80053; 81001; 82550; 83735; 84146; 85014; 85018; 85025; 85049; 93005; 96372; 97139; G0378; J1650; J7030; J7050; U0002

== ENCOUNTER 2022-04-10 16:53 | Emergency (ER) | payer SELFPAY ==
[2022-04-10 18:10] LABS: #Eosinphils 0.2 thou/uL (0.0-0.7); #Lymphocytes 0.9 thou/uL (1.20-3.40); #Monocytes 0.8 thou/uL (0.11-0.59); #Neutrophils 6.7 thou/uL (1.40-6.50); %Eosinophils 1.9 % (0.0-10.0); %Lymphocytes 9.9 % (21.0-51.0); %Monocytes 9.5 % (0.0-10.0); %Neutrophils 78.6 % (42.0-75.0); Hemoglobin 10.6 g/dL (12.0-16.0); Mean Corpuscular HGB CONC 33.8 g/dL (32.0-36.0); Mean Corpuscular Hemoglobin 31.7 pg (27.0-31.0); Mean Corpuscular Volume 93.7 fL (78.0-98.0); Mean Platelet Volume 6.2 fL (7.4-10.4); Platelet Count 176 thou/uL (130-400); RBC Distribution Width 15.2 % (11.5-14.5); Red Blood Cell (RBC) Count 3.34 mill/uL (4.20-5.40); White Blood Cell (WBC) Count 8.6 thou/uL (4.8-10.8)
[2022-04-10 18:41] LABS: ALT (SGPT) 23 U/L (8-55); AST (SGOT) 22 U/L (5-34); Albumin 2.8 g/dL (3.4-4.8); Alkaline Phosphatase 46 U/L (40-110); Anion Gap 11 mmol/L (10-20); BUN (Urea Nitrogen) 25 mg/dL (9.8-20.1); Bilirubin, Total 0.8 mg/dL (0.2-1.2); CK (CPK) 27 U/L (29-168); Calc. Creatinine Clearance 0 mL/min (70-130); Calcium 7.4 mg/dL (7.8-10.44); Carbon Dioxide 21 mmol/L (23-31); Chloride 105 mmol/L (98-107); Estimated GFR 71; Globulin 1.9 g/dL (2.4-3.5); Glucose 114 mg/dL (83-110); Lipase 188 U/L (8-78); Potassium 3.7 mmol/L (3.5-5.1); Protein, Total 4.7 g/dL (5.8-8.1); Sodium 133 mmol/L (136-145)
[2022-04-10 20:11] LABS: Bilirubin Negative (Negative); Blood, Urine Negative (Negative); Clarity Clear (Clear); Glucose, Urine (Dipstick) Normal (Negative); Ketone, Urine Negative (Negative); Leukocyte Negative Leu/uL (Negative); Nitrite Negative (Negative); Protein, Urine (Dipstick) Negative (Neg-Trace); Specific Gravity, Urine 1.014 (1.002-1.036); Urobilinogen Normal mg/dL (Less than 2); pH, Urine 5.5 (5.0-9.0)
== END 2022-04-10 22:40 | disposition home or self-care (01) ==
LOC: ERS 16:53
DX: R41.0 Disorientation, unspecified (principal)
CPT/HCPCS: 36415; 51701; 70450; 80053; 81003; 82550; 83605; 83690; 84484; 85025; 93005

== ENCOUNTER 2022-04-21 19:55 | Emergency (ER) | payer MEDICARE ==
[2022-04-21 20:47] LABS: Hemoglobin 10.9 g/dL (12.0-16.0); Mean Corpuscular Hemoglobin 30.9 pg (27.0-31.0); Mean Corpuscular Volume 93.7 fL (78.0-98.0); Platelet Count 176 thou/uL (130-400); RBC Distribution Width 15.3 % (11.5-14.5); Red Blood Cell (RBC) Count 3.51 mill/uL (4.20-5.40); White Blood Cell (WBC) Count 8.9 thou/uL (4.8-10.8)
[2022-04-21 20:54] LABS: INR-International Normal Ratio 1.2; PTT 29.7 sec (22.9-36.1); Prothrombin Time 15.4 sec (12.0-14.7)
[2022-04-21 21:03] LABS: ALT (SGPT) 18 U/L (8-55); AST (SGOT) 19 U/L (5-34); Albumin 3.1 g/dL (3.4-4.8); Alkaline Phosphatase 51 U/L (40-110); Anion Gap 13 mmol/L (10-20); BUN (Urea Nitrogen) 27 mg/dL (9.8-20.1); Bilirubin, Total 0.7 mg/dL (0.2-1.2); Calc. Creatinine Clearance 0 mL/min (70-130); Calcium 7.6 mg/dL (7.8-10.44); Carbon Dioxide 20 mmol/L (23-31); Chloride 109 mmol/L (98-107); Estimated GFR 63; Globulin 1.7 g/dL (2.4-3.5); Glucose 107 mg/dL (83-110); Protein, Total 4.8 g/dL (5.8-8.1); Sodium 138 mmol/L (136-145)
[2022-04-21 21:24] LABS: Band 10 % (5-11); Lymphocytes 18 % (21-51); MDiff Complete? YES; Monocytes 10 % (0-10); Neutrophil 61 % (42-75)
[2022-04-21 21:29] LABS: Bilirubin Negative (Negative); Blood, Urine Negative (Negative); Clarity Clear (Clear); Glucose, Urine (Dipstick) Normal (Negative); Ketone, Urine Negative (Negative); Leukocyte 250 Leu/uL (Negative); Nitrite Negative (Negative); Protein, Urine (Dipstick) 20 mg/dL (Neg-Trace); RBC/HPF 0-3 HPF (0-3); Specific Gravity, Urine 1.027 (1.002-1.036); Urobilinogen Normal mg/dL (Less than 2); pH, Urine 5.5 (5.0-9.0)
[2022-04-21 21:30] LABS: Bacteria/HPF None Seen HPF (None Seen); Squamous Epithelial 0-3 HPF (0-3)
[2022-04-21 22:47] LABS: SARS-CoV-2 NAA Rapid Test DETECTED (NotDetected)
== END 2022-04-21 23:37 | disposition home or self-care (01) ==
LOC: ERS 19:55
DX: U07.1 COVID-19 (principal); Z79.899 Other long term (current) drug therapy; Z79.82 Long term (current) use of aspirin; J44.9 Chronic obstructive pulmonary disease, unspecified; I50.9 Heart failure, unspecified
CPT/HCPCS: 0240U; 71045; 80053; 83605; 83880; 84484; 85025; 85610; 85730; 87040; 93005; 94760; 36415; 81003; 81015

== ENCOUNTER 2022-05-01 18:30 | Inpatient (IN) | payer MEDICARE, OTHER ==
[2022-05-01 19:25] LABS: #Eosinphils 0.2 thou/uL (0.0-0.7); #Lymphocytes 1.4 thou/uL (1.20-3.40); #Monocytes 1.7 thou/uL (0.11-0.59); #Neutrophils 16.5 thou/uL (1.40-6.50); %Basophils 0.1 % (0.0-1.0); %Eosinophils 0.9 % (0.0-10.0); %Lymphocytes 7.2 % (21.0-51.0); %Monocytes 8.5 % (0.0-10.0); %Neutrophils 83.3 % (42.0-75.0); Hemoglobin 11.2 g/dL (12.0-16.0); Mean Corpuscular HGB CONC 33.4 g/dL (32.0-36.0); Mean Corpuscular Hemoglobin 30.5 pg (27.0-31.0); Mean Corpuscular Volume 91.3 fL (78.0-98.0); Platelet Count 262 thou/uL (130-400); RBC Distribution Width 15.5 % (11.5-14.5); Red Blood Cell (RBC) Count 3.68 mill/uL (4.20-5.40); White Blood Cell (WBC) Count 19.8 thou/uL (4.8-10.8)
[2022-05-01 19:50] LABS: ALT (SGPT) 14 U/L (8-55); AST (SGOT) 17 U/L (5-34); Albumin 3.5 g/dL (3.4-4.8); Alkaline Phosphatase 64 U/L (40-110); Anion Gap 14 mmol/L (10-20); BUN (Urea Nitrogen) 15 mg/dL (9.8-20.1); Bilirubin, Total 1.5 mg/dL (0.2-1.2); Calc. Creatinine Clearance 0 mL/min (70-130); Calcium 8.1 mg/dL (7.8-10.44); Carbon Dioxide 18 mmol/L (23-31); Estimated GFR 79; Glucose 96 mg/dL (83-110); Lipase 81 U/L (8-78); Potassium 3.6 mmol/L (3.5-5.1); Protein, Total 5.5 g/dL (5.8-8.1); Sodium 136 mmol/L (136-145)
[2022-05-01 20:03] LABS: Chloride 108 mmol/L (98-107)
[2022-05-01 20:09] LABS: Bilirubin Negative (Negative); Blood, Urine Negative (Negative); Clarity Clear (Clear); Glucose, Urine (Dipstick) Normal (Negative); Ketone, Urine Negative (Negative); Leukocyte Negative Leu/uL (Negative); Nitrite Negative (Negative); Protein, Urine (Dipstick) 10 mg/dL (Neg-Trace); Specific Gravity, Urine 1.019 (1.002-1.036); Urobilinogen Normal mg/dL (Less than 2)
[2022-05-01] MEDS ORDERED: Aztreonam 2 GM in Sodium Chloride 0.9% 100 ML IVPB SCH (20:45)
[2022-05-01] MEDS ORDERED: VANCOMYCIN 1.25 GM/250 ML BAG 1.25 GM in Premix Bag 1 BAG IVPB SCH (21:00)
[2022-05-01] MEDS ORDERED: Ondansetron PF 4 MG/2 ML Vial IVP PRN (21:32)
[2022-05-01] MEDS ORDERED: Albuterol 200 PUFF (6.7GM INHALER) INH PRN (23:08)
[2022-05-01] MEDS ORDERED: guaiFENesin/DM ER PO SCH (23:15)
[2022-05-01] MEDS ORDERED: Mometasone 100 MCG/Formoterol 5 MCG 120 PUFF INHALER INH SCH (23:15)
[2022-05-01 23:38] VITALS: BMI 18.4
[2022-05-02] MEDS: Acetaminophen 325 MG TAB PO PRN (01:06)
[2022-05-02 04:45] LABS: #Eosinphils 0.2 thou/uL (0.0-0.7); #Lymphocytes 0.9 thou/uL (1.20-3.40); #Monocytes 1.3 thou/uL (0.11-0.59); #Neutrophils 9.6 thou/uL (1.40-6.50); %Basophils 0.1 % (0.0-1.0); %Eosinophils 1.4 % (0.0-10.0); %Lymphocytes 7.8 % (21.0-51.0); %Monocytes 10.7 % (0.0-10.0); Hemoglobin 8.9 g/dL (12.0-16.0); Mean Corpuscular HGB CONC 33.6 g/dL (32.0-36.0); Mean Corpuscular Hemoglobin 30.5 pg (27.0-31.0); Mean Corpuscular Volume 90.8 fL (78.0-98.0); Mean Platelet Volume 5.9 fL (7.4-10.4); Platelet Count 213 thou/uL (130-400); RBC Distribution Width 15.1 % (11.5-14.5); Red Blood Cell (RBC) Count 2.93 mill/uL (4.20-5.40)
[2022-05-02 05:35] LABS: Anion Gap 10 mmol/L (10-20); BUN (Urea Nitrogen) 14 mg/dL (9.8-20.1); Calc. Creatinine Clearance 46 mL/min (70-130); Calcium 7.4 mg/dL (7.8-10.44); Carbon Dioxide 17 mmol/L (23-31); Chloride 111 mmol/L (98-107); Estimated GFR 86; Glucose 91 mg/dL (83-110); Potassium 3.2 mmol/L (3.5-5.1); Sodium 135 mmol/L (136-145)
[2022-05-02] MEDS ORDERED: Albuterol 200 PUFF (6.7GM INHALER) INH SCH (06:30)
[2022-05-02] MEDS: Aztreonam 2 GM in Sodium Chloride 0.9% 100 ML IVPB SCH ×2 (07:18→14:09)
[2022-05-02] MEDS: Mometasone 100 MCG/Formoterol 5 MCG 120 PUFF INHALER INH SCH ×2 (07:35→19:17)
[2022-05-02] MEDS: Aspirin 81 mg Enteric Coated Tablet PO SCH (08:49)
[2022-05-02] MEDS: Ascorbic Acid 500 mg Chewable Tablet PO SCH (08:49)
[2022-05-02] MEDS: Clopidogrel Bisulfate 75 MG TAB PO SCH (08:49)
[2022-05-02] MEDS: Dexamethasone 4 MG TAB PO SCH (08:49)
[2022-05-02] MEDS: Zinc Sulfate 220 MG CAP PO SCH (08:50)
[2022-05-02] MEDS: guaiFENesin/DM ER PO SCH ×2 (08:50→21:44)
[2022-05-02] MEDS ORDERED: FLU VACC QS2022-23(65YR UP)/PF 240 MCG/0.7 ML SYRINGE IM ONE (09:00)
[2022-05-02] MEDS ORDERED: Enoxaparin Sodium 30 MG/0.3 ML SYRINGE SC SCH (09:00)
[2022-05-02] MEDS ORDERED: Vancomycin HCl 750 MG in Sodium Chloride 0.9% 250 ML 250 ML IVPB SCH (21:00)
[2022-05-03] MEDS: Aztreonam 2 GM in Sodium Chloride 0.9% 100 ML IVPB SCH ×4 (00:43→21:06)
[2022-05-03 06:09] LABS: #Basophils 0.1 thou/uL (0.0-0.2); #Eosinphils 0.1 thou/uL (0.0-0.7); #Lymphocytes 0.6 thou/uL (1.20-3.40); #Monocytes 0.5 thou/uL (0.11-0.59); #Neutrophils 7.5 thou/uL (1.40-6.50); %Basophils 0.6 % (0.0-1.0); %Eosinophils 0.6 % (0.0-10.0); %Lymphocytes 6.3 % (21.0-51.0); %Monocytes 6.2 % (0.0-10.0); %Neutrophils 86.2 % (42.0-75.0); Hemoglobin 9.7 g/dL (12.0-16.0); Mean Corpuscular HGB CONC 33.3 g/dL (32.0-36.0); Mean Corpuscular Hemoglobin 30.4 pg (27.0-31.0); Mean Corpuscular Volume 91.5 fL (78.0-98.0); Mean Platelet Volume 6.1 fL (7.4-10.4); Platelet Count 263 thou/uL (130-400); RBC Distribution Width 14.9 % (11.5-14.5); Red Blood Cell (RBC) Count 3.19 mill/uL (4.20-5.40); White Blood Cell (WBC) Count 8.7 thou/uL (4.8-10.8)
[2022-05-03 06:22] LABS: Anion Gap 10 mmol/L (10-20); BUN (Urea Nitrogen) 17 mg/dL (9.8-20.1); Calc. Creatinine Clearance 42 mL/min (70-130); Carbon Dioxide 19 mmol/L (23-31); Chloride 112 mmol/L (98-107); Estimated GFR 83; Glucose 141 mg/dL (83-110); Potassium 3.8 mmol/L (3.5-5.1); Sodium 137 mmol/L (136-145)
[2022-05-03] MEDS: Mometasone 100 MCG/Formoterol 5 MCG 120 PUFF INHALER INH SCH ×2 (07:12→18:15)
[2022-05-03] MEDS: Ascorbic Acid 500 mg Chewable Tablet PO SCH (08:15)
[2022-05-03] MEDS: Clopidogrel Bisulfate 75 MG TAB PO SCH (08:16)
[2022-05-03] MEDS: Aspirin 81 mg Enteric Coated Tablet PO SCH (08:16)
[2022-05-03] MEDS: Zinc Sulfate 220 MG CAP PO SCH (08:16)
[2022-05-03] MEDS: Dexamethasone 4 MG TAB PO SCH (08:16)
[2022-05-03] MEDS: guaiFENesin/DM ER PO SCH ×2 (08:16→21:01)
[2022-05-03] MEDS ORDERED: Dexamethasone 4 mg/ml Vial SLOW IVP SCH (13:45)
[2022-05-03] MEDS ORDERED: Albuterol 200 PUFF (6.7GM INHALER) INH PRN (14:01)
[2022-05-03] MEDS ORDERED: [UNRECOGNIZED DRUG - OTHER] INH PRN (14:39)
[2022-05-03] MEDS ORDERED: VILANTEROL INH PRN (14:39)
[2022-05-03] MEDS: Polyvinyl Alcohol 1.4%/Povidone 0.6% Opth Drops EA EYE SCH (21:01)
[2022-05-03] MEDS: Atorvastatin Calcium 40 MG TAB PO SCH (21:01)
[2022-05-04] MEDS: Aztreonam 2 GM in Sodium Chloride 0.9% 100 ML IVPB SCH ×3 (05:27→21:43)
[2022-05-04] MEDS: Mometasone 100 MCG/Formoterol 5 MCG 120 PUFF INHALER INH SCH ×2 (06:40→18:41)
[2022-05-04] MEDS: guaiFENesin/DM ER PO SCH ×2 (08:05→21:42)
[2022-05-04] MEDS: Aspirin 81 mg Enteric Coated Tablet PO SCH (08:05)
[2022-05-04] MEDS: Clopidogrel Bisulfate 75 MG TAB PO SCH (08:05)
[2022-05-04] MEDS: Ascorbic Acid 500 mg Chewable Tablet PO SCH (08:05)
[2022-05-04] MEDS: Zinc Sulfate 220 MG CAP PO SCH (08:05)
[2022-05-04 08:58] LABS: #Basophils 0.1 thou/uL (0.0-0.2); #Lymphocytes 0.7 thou/uL (1.20-3.40); #Monocytes 0.7 thou/uL (0.11-0.59); #Neutrophils 7.4 thou/uL (1.40-6.50); %Basophils 0.9 % (0.0-1.0); %Eosinophils 0.5 % (0.0-10.0); %Lymphocytes 7.7 % (21.0-51.0); %Monocytes 8.3 % (0.0-10.0); %Neutrophils 82.6 % (42.0-75.0); Hemoglobin 9.9 g/dL (12.0-16.0); Mean Corpuscular HGB CONC 32.6 g/dL (32.0-36.0); Mean Corpuscular Hemoglobin 30.1 pg (27.0-31.0); Mean Corpuscular Volume 92.3 fL (78.0-98.0); Mean Platelet Volume 6.2 fL (7.4-10.4); Platelet Count 311 thou/uL (130-400); RBC Distribution Width 14.7 % (11.5-14.5); Red Blood Cell (RBC) Count 3.28 mill/uL (4.20-5.40)
[2022-05-04] MEDS ORDERED: Dexamethasone 10 MG/ML VIAL SLOW IVP SCH (09:00)
[2022-05-04 09:07] LABS: Anion Gap 11 mmol/L (10-20); BUN (Urea Nitrogen) 21 mg/dL (9.8-20.1); Calc. Creatinine Clearance 40 mL/min (70-130); Calcium 8.1 mg/dL (7.8-10.44); Carbon Dioxide 18 mmol/L (23-31); Chloride 113 mmol/L (98-107); Estimated GFR 77; Glucose 136 mg/dL (83-110); Potassium 4.2 mmol/L (3.5-5.1); Sodium 138 mmol/L (136-145)
[2022-05-04] MEDS: Polyvinyl Alcohol 1.4%/Povidone 0.6% Opth Drops EA EYE SCH ×2 (12:36→21:43)
[2022-05-04] MEDS: Acetaminophen 325 MG TAB PO PRN (21:42)
[2022-05-04] MEDS: Atorvastatin Calcium 40 MG TAB PO SCH (21:42)
[2022-05-04] MEDS: Dexamethasone 10 MG/ML VIAL SLOW IVP SCH (21:43)
[2022-05-05] MEDS: Aztreonam 2 GM in Sodium Chloride 0.9% 100 ML IVPB SCH ×3 (06:29→22:52)
[2022-05-05 06:30] LABS: Actual Bicarbonate (HCO3v) 17 mEq/L (22-28); Base Excess -4.4 mEq/L (-2.0 to +3.0); Calcium, Ionized (venous) 1.11 mmol/L (1.16-1.32); Chloride (VBG) 110 mmol/L (98-106); Hemoglobin (Hb) 11.1 g/dL (11.7-16.1); Potassium (VBG) 3.83 mmol/L (3.70-5.30); Sodium 135.7 mmol/L (133-146); pH (venous) 7.52 (7.32-7.43)
[2022-05-05 06:31] LABS: #Eosinphils 0.1 thou/uL (0.0-0.7); #Lymphocytes 0.7 thou/uL (1.20-3.40); #Monocytes 0.6 thou/uL (0.11-0.59); #Neutrophils 6.9 thou/uL (1.40-6.50); %Basophils 0.1 % (0.0-1.0); %Eosinophils 0.6 % (0.0-10.0); %Lymphocytes 8.3 % (21.0-51.0); %Monocytes 6.8 % (0.0-10.0); %Neutrophils 84.1 % (42.0-75.0); Hemoglobin 10.1 g/dL (12.0-16.0); Mean Corpuscular Volume 90.7 fL (78.0-98.0); Mean Platelet Volume 6.1 fL (7.4-10.4); Platelet Count 326 thou/uL (130-400); RBC Distribution Width 14.6 % (11.5-14.5); Red Blood Cell (RBC) Count 3.37 mill/uL (4.20-5.40); White Blood Cell (WBC) Count 8.2 thou/uL (4.8-10.8)
[2022-05-05 06:56] LABS: Anion Gap 15 mmol/L (10-20); BUN (Urea Nitrogen) 25 mg/dL (9.8-20.1); Calc. Creatinine Clearance 41 mL/min (70-130); Calcium 8.1 mg/dL (7.8-10.44); Carbon Dioxide 15 mmol/L (23-31); Chloride 112 mmol/L (98-107); Estimated GFR 79; Glucose 143 mg/dL (83-110); Potassium 3.9 mmol/L (3.5-5.1); Sodium 138 mmol/L (136-145)
[2022-05-05] MEDS: guaiFENesin/DM ER PO SCH ×2 (08:26→20:41)
[2022-05-05] MEDS: Aspirin 81 mg Enteric Coated Tablet PO SCH (08:26)
[2022-05-05] MEDS: Dexamethasone 10 MG/ML VIAL SLOW IVP SCH ×2 (08:26→20:44)
[2022-05-05] MEDS: Zinc Sulfate 220 MG CAP PO SCH (08:26)
[2022-05-05] MEDS: Clopidogrel Bisulfate 75 MG TAB PO SCH (08:26)
[2022-05-05] MEDS: Polyvinyl Alcohol 1.4%/Povidone 0.6% Opth Drops EA EYE SCH ×2 (08:26→20:44)
[2022-05-05] MEDS: Ascorbic Acid 500 mg Chewable Tablet PO SCH (08:26)
[2022-05-05] MEDS: Mometasone 100 MCG/Formoterol 5 MCG 120 PUFF INHALER INH SCH ×2 (11:31→19:08)
[2022-05-05 16:17] LABS: Legionella Urinary Ag Negative (Negative); Strep pneumo Urine Ag NEGATIVE (NEGATIVE)
[2022-05-05] MEDS: Atorvastatin Calcium 40 MG TAB PO SCH (20:41)
[2022-05-05] MEDS: Acetaminophen 325 MG TAB PO PRN (20:41)
[2022-05-06] MEDS: Aztreonam 2 GM in Sodium Chloride 0.9% 100 ML IVPB SCH (05:33)
[2022-05-06 07:40] LABS: #Eosinphils 0.3 thou/uL (0.0-0.7); #Lymphocytes 0.7 thou/uL (1.20-3.40); #Monocytes 0.6 thou/uL (0.11-0.59); #Neutrophils 8.6 thou/uL (1.40-6.50); %Basophils 0.2 % (0.0-1.0); %Eosinophils 2.6 % (0.0-10.0); %Lymphocytes 6.9 % (21.0-51.0); %Monocytes 6.2 % (0.0-10.0); %Neutrophils 84.1 % (42.0-75.0); Hemoglobin 9.4 g/dL (12.0-16.0); Mean Corpuscular HGB CONC 34.8 g/dL (32.0-36.0); Mean Corpuscular Hemoglobin 31.1 pg (27.0-31.0); Mean Corpuscular Volume 89.5 fL (78.0-98.0); Mean Platelet Volume 5.8 fL (7.4-10.4); Platelet Count 304 thou/uL (130-400); RBC Distribution Width 14.6 % (11.5-14.5); Red Blood Cell (RBC) Count 3.02 mill/uL (4.20-5.40); White Blood Cell (WBC) Count 10.2 thou/uL (4.8-10.8)
[2022-05-06] MEDS: Mometasone 100 MCG/Formoterol 5 MCG 120 PUFF INHALER INH SCH ×2 (07:40→18:55)
[2022-05-06 07:52] LABS: Anion Gap 13 mmol/L (10-20); BUN (Urea Nitrogen) 19 mg/dL (9.8-20.1); Calc. Creatinine Clearance 44 mL/min (70-130); Calcium 7.9 mg/dL (7.8-10.44); Carbon Dioxide 16 mmol/L (23-31); Chloride 112 mmol/L (98-107); Estimated GFR 84; Glucose 144 mg/dL (83-110); Potassium 4.3 mmol/L (3.5-5.1); Sodium 137 mmol/L (136-145)
[2022-05-06] MEDS: Ascorbic Acid 500 mg Chewable Tablet PO SCH (07:56)
[2022-05-06] MEDS: Polyvinyl Alcohol 1.4%/Povidone 0.6% Opth Drops EA EYE SCH ×2 (07:57→20:19)
[2022-05-06] MEDS: Clopidogrel Bisulfate 75 MG TAB PO SCH (07:57)
[2022-05-06] MEDS: Aspirin 81 mg Enteric Coated Tablet PO SCH (07:57)
[2022-05-06] MEDS: guaiFENesin/DM ER PO SCH ×2 (07:57→20:18)
[2022-05-06] MEDS: Zinc Sulfate 220 MG CAP PO SCH (07:57)
[2022-05-06] MEDS: Dexamethasone 10 MG/ML VIAL SLOW IVP SCH ×2 (07:59→20:18)
[2022-05-06] MEDS ORDERED: Ciprofloxacin 500 MG TAB PO SCH (11:15)
[2022-05-06] MEDS: Atorvastatin Calcium 40 MG TAB PO SCH (20:18)
[2022-05-06] MEDS: Acetaminophen 325 MG TAB PO PRN (20:18)
[2022-05-06] MEDS: Ciprofloxacin 500 MG TAB PO SCH (20:18)
[2022-05-07 06:52] LABS: Anion Gap 13 mmol/L (10-20); BUN (Urea Nitrogen) 19 mg/dL (9.8-20.1); Calc. Creatinine Clearance 40 mL/min (70-130); Carbon Dioxide 18 mmol/L (23-31); Chloride 107 mmol/L (98-107); Estimated GFR 76; Glucose 142 mg/dL (83-110); Sodium 134 mmol/L (136-145)
[2022-05-07 07:04] LABS: Mean Corpuscular HGB CONC 32.9 g/dL (32.0-36.0); Mean Corpuscular Hemoglobin 29.8 pg (27.0-31.0); Mean Corpuscular Volume 90.6 fL (78.0-98.0); Mean Platelet Volume 6.1 fL (7.4-10.4); Platelet Count 285 thou/uL (130-400); Red Blood Cell (RBC) Count 3.01 mill/uL (4.20-5.40); White Blood Cell (WBC) Count 11.9 thou/uL (4.8-10.8)
[2022-05-07] MEDS: Mometasone 100 MCG/Formoterol 5 MCG 120 PUFF INHALER INH SCH ×2 (07:46→18:48)
[2022-05-07 07:52] LABS: Band 8 % (5-11); Lymphocytes 11 % (21-51); MDiff Complete? YES; Metamyelocyte 3 % (0-0); Monocytes 3 % (0-10); Myelocyte 1 % (0-0); Neutrophil 72 % (42-75); Platelet Morphology Comment Appears Adequate; Polychromasia SLIGHT = 2-3 cells (100X) (0-2/hpf); Reactive Lymphocytes 2 % (0-10)
[2022-05-07] MEDS: Ciprofloxacin 500 MG TAB PO SCH ×2 (08:19→20:43)
[2022-05-07] MEDS: Ascorbic Acid 500 mg Chewable Tablet PO SCH (08:19)
[2022-05-07] MEDS: Aspirin 81 mg Enteric Coated Tablet PO SCH (08:19)
[2022-05-07] MEDS: Zinc Sulfate 220 MG CAP PO SCH (08:19)
[2022-05-07] MEDS: Clopidogrel Bisulfate 75 MG TAB PO SCH (08:19)
[2022-05-07] MEDS: Dexamethasone 10 MG/ML VIAL SLOW IVP SCH ×2 (08:20→20:44)
[2022-05-07] MEDS: guaiFENesin/DM ER PO SCH ×2 (08:20→20:44)
[2022-05-07] MEDS: Polyvinyl Alcohol 1.4%/Povidone 0.6% Opth Drops EA EYE SCH ×2 (08:30→20:49)
[2022-05-07] MEDS: Atorvastatin Calcium 40 MG TAB PO SCH (20:43)
[2022-05-07] MEDS: Acetaminophen 325 MG TAB PO PRN (20:44)
[2022-05-07 21:12] VITALS: TEMP 98.5
[2022-05-08 06:52] LABS: Anion Gap 13 mmol/L (10-20); BUN (Urea Nitrogen) 20 mg/dL (9.8-20.1); Calc. Creatinine Clearance 43 mL/min (70-130); Calcium 7.9 mg/dL (7.8-10.44); Carbon Dioxide 19 mmol/L (23-31); Chloride 108 mmol/L (98-107); Estimated GFR 84; Glucose 127 mg/dL (83-110); Magnesium 2.1 mg/dL (1.6-2.6); Sodium 136 mmol/L (136-145)
[2022-05-08] MEDS: Mometasone 100 MCG/Formoterol 5 MCG 120 PUFF INHALER INH SCH (07:05)
[2022-05-08 07:12] LABS: Hemoglobin 9.6 g/dL (12.0-16.0); Mean Corpuscular Volume 90.7 fL (78.0-98.0); Mean Platelet Volume 6.1 fL (7.4-10.4); Platelet Count 274 thou/uL (130-400); RBC Distribution Width 15.4 % (11.5-14.5); Red Blood Cell (RBC) Count 3.21 mill/uL (4.20-5.40); White Blood Cell (WBC) Count 11.1 thou/uL (4.8-10.8)
[2022-05-08 07:36] LABS: Band 2 % (5-11); Lymphocytes 7 % (21-51); MDiff Complete? YES; Monocytes 10 % (0-10); Neutrophil 80 % (42-75); Platelet Morphology Comment Appears Adequate; Polychromasia SLIGHT = 2-3 cells (100X) (0-2/hpf); Reactive Lymphocytes 1 % (0-10)
[2022-05-08] MEDS: Dexamethasone 10 MG/ML VIAL SLOW IVP SCH (08:58)
[2022-05-08] MEDS: Polyvinyl Alcohol 1.4%/Povidone 0.6% Opth Drops EA EYE SCH (11:07)
[2022-05-08] MEDS: guaiFENesin/DM ER PO SCH (11:07)
[2022-05-08] MEDS: Zinc Sulfate 220 MG CAP PO SCH (11:07)
[2022-05-08] MEDS: Aspirin 81 mg Enteric Coated Tablet PO SCH (11:08)
[2022-05-08] MEDS: Ascorbic Acid 500 mg Chewable Tablet PO SCH (11:08)
[2022-05-08] MEDS: Clopidogrel Bisulfate 75 MG TAB PO SCH (11:08)
[2022-05-08 12:32] VITALS: BP 154/78
[2022-05-08] MEDS: Ciprofloxacin 500 MG TAB PO SCH (13:26)
[2022-05-08] MEDS ORDERED: Ciprofloxacin 500 MG TAB PO SCH (20:00)
[2022-05-08] MEDS ORDERED: Cipro 250 MG TAB PO SCH (20:00)
[2022-05-08 22:08] LABS: Mycoplasma pneumoniae IgG AB Less than 100 U/mL (0-99); Mycoplasma pneumoniae IgM AB Less than 770 U/mL (0-769)
[2022-05-09 16:37] LABS: QuantiFERON-TB Gold Plus Negative (Negative)
[2022-05-09 21:08] LABS: Coccidioides ABS (DID) Negative (Neg:<1:2)
== END 2022-05-08 13:35 | disposition home health service (06) | DRG 193 ==
LOC: ERS 18:30 → NEURO 20:58 → T4-A 05-03 17:23
PROVIDERS: ADMIT Internal Medicine; ATTEND Family Medicine
PROC: 8E0ZXY6 Isolation (ICD-10-PCS; principal; 2022-05-01)
DX: J15.9 Unspecified bacterial pneumonia (principal); G93.41 Metabolic encephalopathy; U07.1 COVID-19; J44.0 Chronic obstructive pulmonary disease with (acute) lower respiratory infection; L12.0 Bullous pemphigoid; J44.1 Chronic obstructive pulmonary disease with (acute) exacerbation; D64.9 Anemia, unspecified; F03.90 Unspecified dementia, unspecified severity, without behavioral disturbance, psychotic disturbance, mood disturbance, and anxiety; I50.9 Heart failure, unspecified; R53.1 Weakness; D72.829 Elevated white blood cell count, unspecified; Z90.89 Acquired absence of other organs; Z90.49 Acquired absence of other specified parts of digestive tract; Z98.890 Other specified postprocedural states; Z94.7 Corneal transplant status; Z88.2 Allergy status to sulfonamides; Z88.1 Allergy status to other antibiotic agents; Z88.8 Allergy status to other drugs, medicaments and biological substances; Z91.040 Latex allergy status; Z91.041 Radiographic dye allergy status; Z86.73 Personal history of transient ischemic attack (TIA), and cerebral infarction without residual deficits; Z79.02 Long term (current) use of antithrombotics/antiplatelets; Z79.82 Long term (current) use of aspirin; Z79.899 Other long term (current) drug therapy; Z82.49 Family history of ischemic heart disease and other diseases of the circulatory system
CPT/HCPCS: 36415; 36416; 51701; 70450; 71045; 71250; 74230; 80048; 80053; 81003; 82805; 83605; 83690; 83735; 83880; 84145; 84484; 85025; 86140; 86480; 86635; 87040; 87070; 87081; 87205; 87385; 87449; 87804; 87899; 93005; 93010; 94640; 96374; J1100; J3370; J3490; J7620; J8540; U0003; U0005

== ENCOUNTER 2022-05-09 13:19 | Inpatient (IN) | payer MEDICARE, BC ==
[2022-05-09 14:03] LABS: #Basophils 0.1 thou/uL (0.0-0.2); #Eosinphils 0.2 thou/uL (0.0-0.7); #Lymphocytes 1.2 thou/uL (1.20-3.40); #Monocytes 0.9 thou/uL (0.11-0.59); #Neutrophils 15.4 thou/uL (1.40-6.50); %Basophils 0.3 % (0.0-1.0); %Eosinophils 1.4 % (0.0-10.0); %Lymphocytes 6.6 % (21.0-51.0); %Neutrophils 86.8 % (42.0-75.0); Hemoglobin 11.7 g/dL (12.0-16.0); Mean Corpuscular HGB CONC 33.4 g/dL (32.0-36.0); Mean Corpuscular Hemoglobin 30.2 pg (27.0-31.0); Mean Corpuscular Volume 90.5 fL (78.0-98.0); Mean Platelet Volume 5.9 fL (7.4-10.4); Platelet Count 296 thou/uL (130-400); Red Blood Cell (RBC) Count 3.87 mill/uL (4.20-5.40); White Blood Cell (WBC) Count 17.7 thou/uL (4.8-10.8)
[2022-05-09 14:22] LABS: ALT (SGPT) 30 U/L (8-55); AST (SGOT) 29 U/L (5-34); Albumin 3.4 g/dL (3.4-4.8); Alkaline Phosphatase 63 U/L (40-110); Anion Gap 14 mmol/L (10-20); BUN (Urea Nitrogen) 27 mg/dL (9.8-20.1); Bilirubin, Total 1.1 mg/dL (0.2-1.2); Calc. Creatinine Clearance 0 mL/min (70-130); Calcium 8.1 mg/dL (7.8-10.44); Carbon Dioxide 19 mmol/L (23-31); Chloride 109 mmol/L (98-107); Estimated GFR 80; Globulin 2.1 g/dL (2.4-3.5); Glucose 80 mg/dL (83-110); Potassium 3.5 mmol/L (3.5-5.1); Protein, Total 5.5 g/dL (5.8-8.1); Sodium 138 mmol/L (136-145)
[2022-05-09] MEDS ORDERED: methylPREDNISolone Sod Succ 40 MG VIAL ONE (15:06)
[2022-05-09] MEDS ORDERED: diphenhydrAMINE 50 MG/ML VIAL ONE (15:06)
[2022-05-09] MEDS ORDERED: Famotidine/PF 20 mg/2ml Vial ONE (15:06)
[2022-05-09] MEDS ORDERED: Ondansetron ODT 4 MG TAB PO PRN (20:42)
[2022-05-09] MEDS ORDERED: Ondansetron PF 4 MG/2 ML Vial IVP PRN (20:42)
[2022-05-09] MEDS ORDERED: Acetaminophen 650 MG Suppository PR PRN (20:42)
[2022-05-09 21:01] LABS: Bilirubin Negative (Negative); Blood, Urine Negative (Negative); Clarity Clear (Clear); Glucose, Urine (Dipstick) Normal (Negative); Ketone, Urine Negative (Negative); Leukocyte 25 Leu/uL (Negative); Mucous/LPF Rare LPF (<2+); Nitrite Negative (Negative); Protein, Urine (Dipstick) Negative (Neg-Trace); RBC/HPF 0-3 HPF (0-3); Specific Gravity, Urine 1.032 (1.002-1.036); Squamous Epithelial 0-3 HPF (0-3); Urobilinogen Normal mg/dL (Less than 2)
[2022-05-09 21:15] LABS: SARS-CoV-2 NAA Rapid Test DETECTED (NotDetected)
[2022-05-09 21:19] LABS: Bacteria/HPF Rare-Few HPF (None Seen)
[2022-05-09 21:20] LABS: Calcium Oxalate Crystals Rare HPF (None Seen)
[2022-05-10 04:44] LABS: Anion Gap 14 mmol/L (10-20); BUN (Urea Nitrogen) 21 mg/dL (9.8-20.1); Calc. Creatinine Clearance 44 mL/min (70-130); Calcium 7.5 mg/dL (7.8-10.44); Carbon Dioxide 18 mmol/L (23-31); Chloride 110 mmol/L (98-107); Estimated GFR 86; Glucose 80 mg/dL (83-110); Potassium 3.8 mmol/L (3.5-5.1); Sodium 138 mmol/L (136-145)
[2022-05-10 07:04] LABS: #Eosinphils 0.1 thou/uL (0.0-0.7); #Lymphocytes 0.9 thou/uL (1.20-3.40); #Monocytes 0.7 thou/uL (0.11-0.59); #Neutrophils 7.2 thou/uL (1.40-6.50); %Basophils 0.4 % (0.0-1.0); %Eosinophils 1.4 % (0.0-10.0); %Lymphocytes 10.1 % (21.0-51.0); %Monocytes 8.1 % (0.0-10.0); %Neutrophils 79.9 % (42.0-75.0); Hemoglobin 10.3 g/dL (12.0-16.0); Mean Corpuscular HGB CONC 32.3 g/dL (32.0-36.0); Mean Corpuscular Hemoglobin 29.7 pg (27.0-31.0); Mean Corpuscular Volume 91.8 fL (78.0-98.0); Mean Platelet Volume 6.4 fL (7.4-10.4); Platelet Count 227 thou/uL (130-400); Red Blood Cell (RBC) Count 3.47 mill/uL (4.20-5.40)
[2022-05-10] MEDS: Enoxaparin Sodium 40 MG/0.4 ML SYRINGE SC SCH (09:27)
[2022-05-10] MEDS: Aspirin Chewable 81 MG TAB PO SCH (09:27)
[2022-05-10] MEDS: Clopidogrel Bisulfate 75 MG TAB PO SCH (09:27)
[2022-05-10] MEDS ORDERED: Dexamethasone 4 MG TAB PO SCH (15:15)
[2022-05-10] MEDS: Acetaminophen 325 MG TAB PO PRN (21:34)
[2022-05-10] MEDS: Atorvastatin Calcium 40 MG TAB PO SCH (21:34)
[2022-05-11 05:06] LABS: #Lymphocytes 0.5 thou/uL (1.20-3.40); #Monocytes 0.3 thou/uL (0.11-0.59); #Neutrophils 6.5 thou/uL (1.40-6.50); %Basophils 0.1 % (0.0-1.0); %Eosinophils 0.7 % (0.0-10.0); %Lymphocytes 7.1 % (21.0-51.0); %Monocytes 4.4 % (0.0-10.0); %Neutrophils 87.8 % (42.0-75.0); Hemoglobin 9.4 g/dL (12.0-16.0); Mean Corpuscular HGB CONC 33.1 g/dL (32.0-36.0); Mean Corpuscular Hemoglobin 30.2 pg (27.0-31.0); Mean Corpuscular Volume 91.5 fL (78.0-98.0); Mean Platelet Volume 6.3 fL (7.4-10.4); Platelet Count 209 thou/uL (130-400); RBC Distribution Width 15.9 % (11.5-14.5); Red Blood Cell (RBC) Count 3.12 mill/uL (4.20-5.40); White Blood Cell (WBC) Count 7.4 thou/uL (4.8-10.8)
[2022-05-11 05:08] LABS: Anion Gap 11 mmol/L (10-20); BUN (Urea Nitrogen) 20 mg/dL (9.8-20.1); Calc. Creatinine Clearance 42 mL/min (70-130); Calcium 7.6 mg/dL (7.8-10.44); Carbon Dioxide 20 mmol/L (23-31); Chloride 107 mmol/L (98-107); Estimated GFR 84; Glucose 126 mg/dL (83-110); Potassium 4.2 mmol/L (3.5-5.1); Sodium 134 mmol/L (136-145)
[2022-05-11] MEDS: Aspirin Chewable 81 MG TAB PO SCH (10:32)
[2022-05-11] MEDS: Clopidogrel Bisulfate 75 MG TAB PO SCH (10:32)
[2022-05-11] MEDS: Ferrous Gluconate 324 MG TAB PO SCH (10:32)
[2022-05-11] MEDS: Dexamethasone 4 MG TAB PO SCH (10:32)
[2022-05-11] MEDS: Enoxaparin Sodium 40 MG/0.4 ML SYRINGE SC SCH (10:33)
[2022-05-11] MEDS: Atorvastatin Calcium 40 MG TAB PO SCH ×2 (20:23→20:27)
[2022-05-11] MEDS: Acetaminophen 325 MG TAB PO PRN (20:23)
[2022-05-12] MEDS ORDERED: FLU VACC QS2022-23(65YR UP)/PF 240 MCG/0.7 ML SYRINGE IM ONE (09:00)
[2022-05-12] MEDS: Ferrous Gluconate 324 MG TAB PO SCH (09:44)
[2022-05-12] MEDS: Enoxaparin Sodium 40 MG/0.4 ML SYRINGE SC SCH (09:44)
[2022-05-12] MEDS: Dexamethasone 4 MG TAB PO SCH (09:44)
[2022-05-12] MEDS: Clopidogrel Bisulfate 75 MG TAB PO SCH (09:44)
[2022-05-12] MEDS: Aspirin Chewable 81 MG TAB PO SCH (09:44)
[2022-05-12 14:41] VITALS: BMI 17.3
[2022-05-12] MEDS: Atorvastatin Calcium 40 MG TAB PO SCH (20:27)
[2022-05-13] MEDS ORDERED: Albuterol 200 PUFF (6.7GM INHALER) INH PRN (05:08)
[2022-05-13] MEDS ORDERED: Albuterol 200 PUFF (6.7GM INHALER) INH SCH (06:30)
[2022-05-13] MEDS ORDERED: Albuterol Sulfate 2.5 mg/3 ml Neb NEB PRN (08:17)
[2022-05-13] MEDS: Ferrous Gluconate 324 MG TAB PO SCH (10:02)
[2022-05-13] MEDS: Clopidogrel Bisulfate 75 MG TAB PO SCH (10:02)
[2022-05-13] MEDS: Dexamethasone 4 MG TAB PO SCH (10:02)
[2022-05-13] MEDS: Aspirin Chewable 81 MG TAB PO SCH (10:02)
[2022-05-13] MEDS: Enoxaparin Sodium 40 MG/0.4 ML SYRINGE SC SCH (10:02)
[2022-05-13] MEDS ORDERED: Albuterol Sulfate 2.5 mg/3 ml Neb NEB SCH (12:30)
[2022-05-13 16:22] VITALS: BP 136/65; TEMP 98.4
== END 2022-05-13 16:21 | disposition hospice, home (50) | DRG 872 ==
LOC: ERS 13:19 → 2NO 19:28 → OBSVTOIN 05-12 11:38
PROVIDERS: ADMIT Student in an Organized Health Care Education/Training Program; ATTEND Internal Medicine
DX: A41.9 Sepsis, unspecified organism (principal); F01.511 Vascular dementia, unspecified severity, with agitation; A31.0 Pulmonary mycobacterial infection; J47.1 Bronchiectasis with (acute) exacerbation; L12.0 Bullous pemphigoid; G93.40 Encephalopathy, unspecified; N17.9 Acute kidney failure, unspecified; Z51.5 Encounter for palliative care; R41.82 Altered mental status, unspecified; R91.8 Other nonspecific abnormal finding of lung field; D89.89 Other specified disorders involving the immune mechanism, not elsewhere classified; J98.4 Other disorders of lung; R55 Syncope and collapse; M51.36 Other intervertebral disc degeneration, lumbar region; I50.9 Heart failure, unspecified; Z98.49 Cataract extraction status, unspecified eye; Z90.49 Acquired absence of other specified parts of digestive tract; Z79.899 Other long term (current) drug therapy; Z86.16 Personal history of COVID-19; Z88.2 Allergy status to sulfonamides; Z88.8 Allergy status to other drugs, medicaments and biological substances; Z91.040 Latex allergy status; Z79.52 Long term (current) use of systemic steroids; Z79.82 Long term (current) use of aspirin
CPT/HCPCS: 36415; 36416; 70450; 71045; 71275; 72125; 72131; 80048; 80053; 81003; 81015; 83605; 84145; 84484; 85025; 85379; 87040; 87086; 93005; 94640; 96365; 96372; 96375; 96376; G0378; J1200; J1650; J1956; J2920; J7611; J7620; J8540; Q9967; S0028; U0002